=== PATIENT | male | born 1965 | race Caucasian/White ===

== ENCOUNTER 2017-02-17 07:11 | Day surgery (SDC) | payer BC ==
[2017-02-14 13:27] VITALS: BMI 25.8
[~2017-02-17 07:11] MED LIST: LACTATED RINGERS 1,000 ML IV SCH; LIDOCAINE 1% 20 ML VIAL (10MG/ML) FOR IV START INTRADERMA PRN
[2017-02-17] MEDS ORDERED: LACTATED RINGERS 1,000 ML IV ONE (07:15)
[2017-02-17 07:23] VITALS: RESP 16; TEMP 98.5
[2017-02-17] MEDS ORDERED: LIDOCAINE 1% INJ 10MG/ML (20 ML MDV) ONE (07:46)
[2017-02-17] MEDS ORDERED: PROPOFOL 10 MG/ML 20 ML VIAL IV ONE (07:46)
--- NOTE | 2017-02-17 07:51 | P.GSHP ---
History of Present Illness H&P Date: 02/17/17 Chief Complaint: Colon cancer screening Patient or today for colonoscopy. He is not had previously. He is here for screening reasons. Denies any change in bowel habits rectal bleeding or melena. No family history of colon cancer or polyps. Past Medical History Past Medical History: GERD/Reflux Additional Past Medical History / Comment(s): one seizure age 12, History of Any Multi-Drug Resistant Organisms: None Reported Past Surgical History: Orthopedic Surgery Additional Past Surgical History / Comment(s): ORIF rt hand, lump on back on neck excised Past Anesthesia/Blood Transfusion Reactions: No Reported Reaction Past Psychological History: No Psychological Hx Reported Smoking Status: Current every day smoker Past Alcohol Use History: None Reported Additional Past Alcohol Use History / Comment(s): smokes 1 PPD, since age 16 Past Drug Use History: None Reported - Past Family History Mother Family Medical History: No Reported History Medications and Allergies Home Medications Medication Instructions Recorded Confirmed Type No Known Home Medications [No 02/14/17 02/14/17 History Known Home Medications] Allergies Allergy/AdvReac Type Severity Reaction Status Date / Time No Known Allergies Allergy Verified 02/14/17 13:21 Surgical - Exam Vital Signs Temp Pulse Resp BP Pulse Ox 98.5 F 78 16 125/87 98 02/17/17 07:22 02/17/17 07:22 02/17/17 07:22 02/17/17 07:22 02/17/17 07:22 Physical exam: General: Well-developed, well-nourished HEENT: Normocephalic, sclerae nonicteric Abdomen: Nontender, nondistended Extremities: No edema Neuro: Alert and oriented Assessment and Plan (1) Colon cancer screening Narrative/Plan: Proceed with colonoscopy at this time. Status: Acute
--- NOTE | 2017-02-17 08:11 | P.PCN ---
Date of Procedure: 02/17/17 Procedure(s) Performed: PREOPERATIVE DIAGNOSIS: Colon cancer screening POSTOPERATIVE DIAGNOSIS: Mild inflammatory changes mid sigmoid with diverticulosis PROCEDURE: Colonoscopy with biopsy ANESTHESIA: MAC SURGEON: Herrera Lema M.D. SPECIMENS: Sigmoid colon ENDOSCOPIC PROCEDURE: The patient was placed on the endoscopy table in the left decubitus position. The Olympus colonoscope was inserted into the anus and passed under direct visualization to the base of the cecum. The appendiceal orifice was visualized. From that point the scope was slowly withdrawn inspecting all surfaces carefully. There were no neoplastic inflammatory or polypoid lesions throughout the cecum, ascending, transverse, or descending colon. In the sigmoid colon there was diverticulosis present. There was some edema of the mucosa. There was one area in particular where there was a fold of the colon that may have even represented an inverted diverticulum. This was erythematous and indurated. A single cold biopsy took place of that tissue to rule out adenomatous tissue. The remainder of the sigmoid and rectum appeared normal. Again moderate diverticular changes throughout the sigmoid was noted. Small hemorrhoids were present at the anal region. The patient was taken to the recovery room in stable condition per anesthesia guidelines. RECOMMENDATIONS: Await biopsy results. Increase fiber.
[2017-02-17 08:41] VITALS: BP 121/87; PULSE 68
== END 2017-02-17 08:50 | disposition home or self-care (01) ==
LOC: ORWHC2ENDO 07:11
PROVIDERS: ATTEND Surgery
DX: Z12.11 Encounter for screening for malignant neoplasm of colon (principal); K57.30 Diverticulosis of large intestine without perforation or abscess without bleeding; K64.9 Unspecified hemorrhoids; F17.200 Nicotine dependence, unspecified, uncomplicated
CPT/HCPCS: 88305; 45380; J2001; J2704

== ENCOUNTER 2018-11-16 13:09 | Inpatient (IN) | payer BC ==
[2018-11-16] MEDS ORDERED: NITROGLYCERIN OINT 1 INCH/GM PACKET TOPICAL STA (13:28)
[2018-11-16] MEDS ORDERED: ASPIRIN 81 MG PO STA (13:28)
--- NOTE | 2018-11-16 13:31 | ED ---
General Adult HPI - General Chief complaint: Chest Pain Stated complaint: Chest pain Time Seen by Provider: 11/16/18 13:15 Source: patient, RN notes reviewed Mode of arrival: ambulatory Limitations: no limitations - History of Present Illness Initial comments: This is a 53-year-old male who presents emergency Department complaining of chest pain. Patient states he's been having intermittent chest pain over the last 2 weeks but today's had 3 different times and each time is become worse. Patient states it radiates down his left arm and is also become quite diaphoretic. Patient denies any shortness of breath or difficulty breathing associated with pain. Patient states currently he has no chest pain but he does feel some achiness in his arm still. No positive family history for heart problems. Patient is a smoker. Patient denies any history of diabetes or hypertension. Patient denies any cardiac problems himself. Patient denies any abdominal pain patient denies nausea vomiting diarrhea. Patient denies any recent fever chills or cough. Patient denies any injury or trauma. - Related Data Home Medications Medication Instructions Recorded Confirmed No Known Home Medications 02/14/17 11/16/18 Allergies Allergy/AdvReac Type Severity Reaction Status Date / Time No Known Allergies Allergy Verified 11/16/18 14:08 Review of Systems ROS Statement: Those systems with pertinent positive or pertinent negative responses have been documented in the HPI. ROS Other: All systems not noted in ROS Statement are negative. Past Medical History Past Medical History: GERD/Reflux Additional Past Medical History / Comment(s): one seizure age 12, History of Any Multi-Drug Resistant Organisms: None Reported Past Surgical History: Orthopedic Surgery Additional Past Surgical History / Comment(s): ORIF rt hand, lump on back on neck excised Past Anesthesia/Blood Transfusion Reactions: No Reported Reaction Past Psychological History: No Psychological Hx Reported Smoking Status: Current every day smoker Past Alcohol Use History: None Reported Past Drug Use History: None Reported - Past Family History Mother Family Medical History: No Reported History General Exam - General Exam Comments Initial Comments: GENERAL: Patient is well-developed and well-nourished. Patient is nontoxic and well- hydrated and is in mild distress. ENT: Neck is soft and supple. No significant lymphadenopathy is noted. Oropharynx is clear. Moist mucous membranes. Neck has full range of motion without eliciting any pain. EYES: The sclera were anicteric and conjunctiva were pink and moist. Extraocular movements were intact and pupils were equal round and reactive to light. Eyelids were unremarkable. PULMONARY: Unlabored respirations. Good breath sounds bilaterally. No audible rales rhonchi or wheezing was noted. CARDIOVASCULAR: There is a regular rate and rhythm without any murmurs gallops or rubs. ABDOMEN: Soft and nontender with normal bowel sounds. No palpable organomegaly was noted. There is no palpable pulsatile mass. SKIN: Skin is clear with no lesions or rashes and otherwise unremarkable. NEUROLOGIC: Patient is alert and oriented x3. Cranial nerves II through XII are grossly intact. Motor and sensory are also intact. Normal speech, volume and content. Symmetrical smile. MUSCULOSKELETAL: Normal extremities with adequate strength and full range of motion. No lower extremity swelling or edema. No calf tenderness. LYMPHATICS: No significant lymphadenopathy is noted PSYCHIATRIC: Normal psychiatric evaluation. Limitations: no limitations Course Vital Signs 11/16/18 11/16/18 11/16/18 13:17 14:00 14:30 Temperature 96.6 F L Pulse Rate 85 65 73 Respiratory 20 14 15 Rate Blood Pressure 116/79 132/87 139/93 O2 Sat by Pulse 99 98 97 Oximetry Medical Decision Making - Medical Decision Making EKG shows normal sinus rhythm at 65 bpm PA interval 180 QRS is 90 QT interval 386 QTC is 411. Patient's EKG shows no ST segment elevation or depression or T- wave abnormalities are noted Chest x-ray shows no acute abnormality. Patient's troponin was mildly elevated and though he was chest pain-free I consider this a non-STEMI and I started the patient on heparin and give the patient some Lopressor. I spoke with Dr. Pichardo he agreed with this plan of action and he stated he will be down to the emergency department to see the patient. I spoke with Dr. Monet he agreed to admit the patient admitted the patient wrote admitting orders. - Lab Data Result diagrams: 11/16/18 13:38 11/16/18 13:38 Lab Results 11/16/18 11/16/18 11/16/18 Range/Units 13:38 13:38 13:38 WBC 12.2 H (3.8-10.6) k/uL RBC 4.82 (4.30-5.90) m/uL Hgb 14.4 (13.0-17.5) gm/dL Hct 44.3 (39.0-53.0) % MCV 91.9 (80.0-100.0) fL MCH 29.8 (25.0-35.0) pg MCHC 32.5 (31.0-37.0) g/dL RDW 12.7 (11.5-15.5) % Plt Count 398 (150-450) k/uL Neutrophils % 77 % Lymphocytes % 18 % Monocytes % 2 % Eosinophils % 2 % Basophils % 0 % Neutrophils # 9.3 H (1.3-7.7) k/uL Lymphocytes # 2.2 (1.0-4.8) k/uL Monocytes # 0.3 (0-1.0) k/uL Eosinophils # 0.2 (0-0.7) k/uL Basophils # 0.0 (0-0.2) k/uL PT (9.0-12.0) sec INR (<1.2) APTT (22.0-30.0) sec Sodium 141 (137-145) mmol/L Potassium 4.8 (3.5-5.1) mmol/L Chloride 107 (98-107) mmol/L Carbon Dioxide 23 (22-30) mmol/L Anion Gap 11 mmol/L BUN 13 (9-20) mg/dL Creatinine 0.82 (0.66-1.25) mg/dL Est GFR (CKD-EPI)AfAm >90 (>60 ml/min/1.73 sqM) Est GFR (CKD-EPI)NonAf >90 (>60 ml/min/1.73 sqM) Glucose 125 H (74-99) mg/dL Calcium 9.4 (8.4-10.2) mg/dL Magnesium 1.7 (1.6-2.3) mg/dL Total Bilirubin 0.4 (0.2-1.3) mg/dL AST 30 (17-59) U/L ALT 38 (21-72) U/L Alkaline Phosphatase 67 (38-126) U/L Total Creatine Kinase 47 L (55-170) U/L CK-MB (CK-2) 1.6 (0.0-2.4) ng/mL CK-MB (CK-2) Rel Index 3.4 Troponin I 0.160 H* (0.000-0.034) ng/mL Total Protein 6.9 (6.3-8.2) g/dL Albumin 4.1 (3.5-5.0) g/dL 11/16/18 Range/Units 13:38 WBC (3.8-10.6) k/uL RBC (4.30-5.90) m/uL Hgb (13.0-17.5) gm/dL Hct (39.0-53.0) % MCV (80.0-100.0) fL MCH (25.0-35.0) pg MCHC (31.0-37.0) g/dL RDW (11.5-15.5) % Plt Count (150-450) k/uL Neutrophils % % Lymphocytes % % Monocytes % % Eosinophils % % Basophils % % Neutrophils # (1.3-7.7) k/uL Lymphocytes # (1.0-4.8) k/uL Monocytes # (0-1.0) k/uL Eosinophils # (0-0.7) k/uL Basophils # (0-0.2) k/uL PT 9.6 (9.0-12.0) sec INR 0.9 (<1.2) APTT 22.0 (22.0-30.0) sec Sodium (137-145) mmol/L Potassium (3.5-5.1) mmol/L Chloride (98-107) mmol/L Carbon Dioxide (22-30) mmol/L Anion Gap mmol/L BUN (9-20) mg/dL Creatinine (0.66-1.25) mg/dL Est GFR (CKD-EPI)AfAm (>60 ml/min/1.73 sqM) Est GFR (CKD-EPI)NonAf (>60 ml/min/1.73 sqM) Glucose (74-99) mg/dL Calcium (8.4-10.2) mg/dL Magnesium (1.6-2.3) mg/dL Total Bilirubin (0.2-1.3) mg/dL AST (17-59) U/L ALT (21-72) U/L Alkaline Phosphatase (38-126) U/L Total Creatine Kinase (55-170) U/L CK-MB (CK-2) (0.0-2.4) ng/mL CK-MB (CK-2) Rel Index Troponin I (0.000-0.034) ng/mL Total Protein (6.3-8.2) g/dL Albumin (3.5-5.0) g/dL Critical Care Time Critical Care Time: Yes Total Critical Care Time: 35 Disposition Clinical Impression: Non-STEMI (non-ST elevated myocardial infarction) Disposition: ADMITTED IP TO THIS HOSP Referrals: Trisha Varner III, MD [Primary Care Provider] - 1-2 days Time of Disposition: 15:34
[2018-11-16 14:26] LABS: ALT 38 U/L (21-72); AST 30 U/L (17-59); Albumin 4.1 g/dL (3.5-5.0); Alkaline Phosphatase 67 U/L (38-126); Anion Gap 11 mmol/L; Blood Urea Nitrogen 13 mg/dL (9-20); Calcium 9.4 mg/dL (8.4-10.2); Carbon Dioxide 23 mmol/L (22-30); Chloride 107 mmol/L (98-107); Glucose 125 mg/dL (74-99); Magnesium 1.7 mg/dL (1.6-2.3); Potassium 4.8 mmol/L (3.5-5.1); Sodium 141 mmol/L (137-145); Total Bilirubin 0.4 mg/dL (0.2-1.3); Total Protein 6.9 g/dL (6.3-8.2)
[2018-11-16 14:28] LABS: Basophils % (A) 0 %; Eosinophils # (A) 0.2 k/uL (0-0.7); Eosinophils % (A) 2 %; HCT 44.3 % (39.0-53.0); HGB 14.4 gm/dL (13.0-17.5); Lymphocytes # (A) 2.2 k/uL (1.0-4.8); Lymphocytes % (A) 18 %; MCH 29.8 pg (25.0-35.0); MCHC 32.5 g/dL (31.0-37.0); MCV 91.9 fL (80.0-100.0); Mean Platelet Volume 6.6; Monocytes # (A) 0.3 k/uL (0-1.0); Monocytes % (A) 2 %; Neutrophils # (A) 9.3 k/uL (1.3-7.7); Neutrophils % (A) 77 %; Platelet Count 398 k/uL (150-450); RBC 4.82 m/uL (4.30-5.90); RDW 12.7 % (11.5-15.5); WBC 12.2 k/uL (3.8-10.6)
[2018-11-16 14:32] LABS: INR 0.9 (<1.2); Prothrombin Time 9.6 sec (9.0-12.0)
[2018-11-16 14:43] LABS: Creatine Kinase MB 1.6 ng/mL (0.0-2.4)
[2018-11-16 14:45] LABS: Troponin I 0.16 ng/mL (0.000-0.034)
--- NOTE | 2018-11-16 14:50 | XR ---
EXAMINATION TYPE: XR chest 2V DATE OF EXAM: 11/16/2018 COMPARISON: NONE HISTORY: Shortness of breath TECHNIQUE: Frontal and lateral views of the chest are obtained. FINDINGS: Scattered senescent parenchymal changes noted. No evidence for infiltrate. No evidence for atelectasis. Heart size is stable. Mediastinal structures are stable and grossly unremarkable. No evidence for hilar prominence. Degenerative changes dorsal spine. IMPRESSION: 1. No evidence for acute pulmonary disease.
[2018-11-16] MEDS ORDERED: HEPARIN SODIUM,PORCINE 5,000 UNIT/ML 1 ML VIAL IV ONE (15:08)
[2018-11-16] MEDS ORDERED: METOPROLOL TARTRATE 25 MG TAB PO STA (15:32)
[2018-11-16] MEDS ORDERED: NITROGLYCERIN SL TABS 0.4 MG TAB SUBLINGUAL PRN (15:35)
[2018-11-16] MEDS: HEPARIN SOD,PORK IN 0.45% NACL 25,000 UNIT in 0.45% NACL 1 250ML.BAG IV SCH (15:38)
[2018-11-16] MEDS: NICOTINE 21MG/24HR PATCH TRANSDERM SCH (17:21)
[2018-11-16] MEDS: NITROGLYCERIN OINT 1 INCH/GM PACKET TOPICAL SCH ×2 (20:29→23:11)
[2018-11-16 20:40] LABS: Creatine Kinase MB 1.9 ng/mL (0.0-2.4)
[2018-11-16 20:44] LABS: Troponin I 0.169 ng/mL (0.000-0.034)
[2018-11-16] MEDS ORDERED: ATORVASTATIN 40 MG TAB PO SCH (21:00)
[2018-11-16] MEDS: METOPROLOL TARTRATE 12.5 MG TAB PO SCH (21:26)
--- NOTE | 2018-11-16 21:56 | CONS ---
CONSULTATION DATE OF SERVICE: 11/16/2018. HISTORY: Mr. 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 He sees Dr. Varner and his nurse practitioner. However, this gentleman came into the emergency room with symptoms strongly suggestive of angina pectoris. Apparently, he was changing the light ball on his 's car and as he was doing it he felt pressure in the chest with radiation to left upper extremity and some diaphoresis. He felt concerned, went and sat down and then he felt better. He came and finished the job, went inside to the house and told his that was having chest discomfort. She gave him some aspirin, the pain recurred and he came into the hospital. For the last 2 weeks, he has been having on and off nondescript chest tightness and pressure and radiation to the left upper extremity with activity suggestive of angina pectoris. At the time of my evaluation, he is virtually asymptomatic, is feeling well. EKG revealed sinus mechanism with very subtle ST and specifically T-wave abnormality in leads V1 and V2. His initial troponin is 0.16. He is on a heparin drip and nitroglycerin paste and he is comfortable, resting without symptoms. PAST MEDICAL HISTORY: Gastroesophageal reflux disease. No evidence of any hypertension, diabetes, myocardial infarction or CVA. MEDICATIONS: None. ALLERGIES: None. PAST SURGICAL HISTORY: The patient underwent some right hand thumb surgery after an accident with a chainsaw. PHYSICAL EXAMINATION: Blood pressure is 124/84, pulse rate is about 80 per minute and regular. HEENT: Unremarkable. Fundus was not examined by me. NECK: Supple. There is no JVD. I do not hear a carotid bruit. There is no thyromegaly. HEART: Exam reveals S1, S2 heard normally without a rub, murmur, or gallop. LUNGS: Clear. ABDOMEN: Soft, nontender. EXTREMITIES: Lower extremities reveal that there is no edema. His right lower extremity pulses are normal, but left lower extremity pulses are diminished. He probably has disease in the iliac as well as in the femoral system and the pulses are very diminished distally. CENTRAL NERVOUS SYSTEM: Grossly, no focal deficits. EKG revealed a sinus mechanism with precordial ST changes in leads V1 and V2. No other acute changes. LABORATORY DATA: Reveals a troponin of 0.16. This patient is a smoker and has a family history of cancer, but not CAD. He has no hypertension or diabetes. He smokes more than 1 pack a day, almost 2 packs daily. IMPRESSION: 1. Acute ischemic syndrome, probable non ST elevation myocardial infarction. 2. Peripheral arterial disease with diminished pulses in the left lower extremity with iliofemoral and probably popliteal disease as well. 3. History of smoking. RECOMMENDATIONS: I am recommending that we will continue with IV heparin drip. I will add Lopressor 12.5 mg b.i.d. with a dose now, atorvastatin 40 mg daily. Nitroglycerin paste will be continued. He is also had taking aspirin. I have advised cardiac catheterization and possible intervention. The rationale, risks, benefits, options were explained very carefully. Patient understands all details and wishes to proceed with the procedure tomorrow, which will be scheduled at 9 a.m. If the patient has any symptoms, we will do intervention prior to that. I discussed my thoughts in detail with the patient and also with his son. Thank you very much for the consult. TERESSA / CARON: [id number] /
[2018-11-17 02:08] LABS: Creatine Kinase MB 2.7 ng/mL (0.0-2.4)
[2018-11-17 02:12] LABS: Troponin I 0.403 ng/mL (0.000-0.034)
[2018-11-17] MEDS ORDERED: ALPRAZolam 0.5 MG TAB PO PRN (04:26)
[2018-11-17] MEDS ORDERED: SODIUM CHLORIDE 0.9% 1,000 ML in EMPTY BAG 1 BAG IV ONE (04:26)
[2018-11-17] MEDS ORDERED: ALPRAZolam 0.25 MG TAB PO PRN (04:26)
[2018-11-17] MEDS ORDERED: NITROGLYCERIN SL TABS 0.4 MG TAB SUBLINGUAL PRN (04:26)
[2018-11-17] MEDS ORDERED: ATORVASTATIN 80 MG TAB PO STA (04:26)
[2018-11-17 05:28] LABS: Cholesterol 145 mg/dL (<200); HDL Cholesterol 43 mg/dL (40-60); LDL Cholesterol,Calculated 84 mg/dL (0-99); Triglycerides 89 mg/dL (<150)
[2018-11-17] MEDS: NITROGLYCERIN OINT 1 INCH/GM PACKET TOPICAL SCH ×4 (06:14→23:51)
[2018-11-17] MEDS: METOPROLOL TARTRATE 12.5 MG TAB PO SCH (06:18)
[2018-11-17] MEDS ORDERED: ASPIRIN 325 MG TAB PO SCH (09:00)
[2018-11-17] MEDS ORDERED: VERAPAMIL 2.5 MG/ML 2 ML AMP ONE (09:32)
[2018-11-17] MEDS ORDERED: LIDOCAINE 1% INJ 10MG/ML (20 ML MDV) ONE (09:32)
[2018-11-17] MEDS ORDERED: IV FLUID CONTINUATION 1,000 ML IV ONE (09:37)
[2018-11-17] MEDS ORDERED: MIDAZOLAM 2 MG/2 ML VIAL IV ONE (09:47)
[2018-11-17] MEDS ORDERED: LIDOCAINE 1% INJ 10MG/ML (20 ML MDV) SQ ONE (09:52)
[2018-11-17] MEDS ORDERED: HEPARIN SODIUM 1,000 UN/ML (10ML VL) IV ONE ×2 (09:54)
[2018-11-17] MEDS: VERAPAMIL SYRINGE (5 MG/10 ML) INTRAARTER ONE ×2 (09:54→10:26)
[2018-11-17] MEDS ORDERED: HEPARIN SOD,PORK IN 0.45% NACL 25,000 UNIT in 0.45% NACL 1 250ML.BAG IV ONE (10:09)
[2018-11-17] MEDS ORDERED: IOPAMIDOL-370 100ML BTL INJ ONE (10:18)
[2018-11-17] MEDS ORDERED: NITROGLYCERIN SL TABS 0.4 MG TAB SUBLINGUAL ONE ×2 (10:19→10:20)
[2018-11-17] MEDS ORDERED: RX INFO: IV CONTRAST WAS GIVEN 1 EACH MISC MISCELLANE PRN (10:49)
[2018-11-17] MEDS ORDERED: MD COMMUNICATION TO PHARMACY 1 EACH MISC PO ONE ×4 (11:15)
--- NOTE | 2018-11-17 11:53 | P.CNPUL ---
History of Present Illness Consult date: 11/17/18 Requesting physician: Gonzales Monet Reason for consult: other (Critical care management) Chief complaint: Chest pain History of present illness: This is a very pleasant 53-year-old gentleman who follows with Dr. Varner is his primary care physician. He has a history of gastroesophageal reflux disease , chronic and ongoing tobacco dependence. No home medications. No strong family history of coronary artery disease. He presented here to the emergency room yesterday with complaints of chest pain. It had been intermittent over the past 2 weeks but yesterday he had at 3 different times and came in for that reason. He has had some achiness in his left arm and was diaphoretic. EKG revealed sinus rhythm with very subtle ST and T wave abnormalities. Troponin 0.169, 0.403, 0.555. He was initiated on a heparin drip and nitroglycerin paste. He had undergone cardiac catheterization today which which revealed significant coronary artery disease including 75% LAD lesion with intrinsic dissection. Cardiothoracic consultation is pending. He is seen today in consultation in the intensive care unit. He is awake and alert in no acute distress. He is maintaining good O2 saturations in the upper 90s on room air. He's been afebrile. Hemodynamically stable. No chest pain currently. No dizziness or lightheadedness. No shortness of breath cough or congestion. Review of Systems Constitutional: Reports sweats, Reports weakness Eyes: denies blurred vision, denies decreased vision Ears: deny: decreased hearing Ears, nose, mouth and throat: Denies headache, Denies sore throat Cardiovascular: Reports chest pain Respiratory: Denies cough Gastrointestinal: Denies abdominal pain, Denies diarrhea, Denies nausea, Denies vomiting Genitourinary: Reports as per HPI Musculoskeletal: Denies myalgias Integumentary: Denies pruritus, Denies rash Neurological: Denies numbness, Denies weakness Psychiatric: Denies anxiety, Denies depression Endocrine: Denies fatigue, Denies weight change Hematologic/Lymphatic: Reports as per HPI Allergic/Immunologic: Reports as per HPI Past Medical History Past Medical History: GERD/Reflux Additional Past Medical History / Comment(s): one seizure age 12, diverticulosis ,"herniated disc in neck" chronic neck pain History of Any Multi-Drug Resistant Organisms: None Reported Past Surgical History: Orthopedic Surgery Additional Past Surgical History / Comment(s): ORIF rt hand, lump on back of neck excised(cyst), rt thumb partial amp Past Anesthesia/Blood Transfusion Reactions: No Reported Reaction Additional Past Anesthesia/Blood Transfusion Reaction / Comment(s): "never received any blood transfusions" Smoking Status: Current every day smoker - Past Family History Mother Family Medical History: Cancer, Myocardial Infarction ([place]) Additional Family Medical History / Comment(s): cardiac stents Father History Unknown: Yes Brother(s) Family Medical History: Cancer Additional Family Medical History / Comment(s): was smoker. from lung cancer Sister(s) Family Medical History: Cancer Additional Family Medical History / Comment(s): smoker. recently dx with lung cancer. Medications and Allergies Home Medications Medication Instructions Recorded Confirmed Type No Known Home Medications 02/14/17 11/16/18 History Allergies Allergy/AdvReac Type Severity Reaction Status Date / Time No Known Allergies Allergy Verified 11/16/18 14:08 Physical Exam Vitals: Vital Signs Temp Pulse Pulse Resp BP BP Pulse Ox 11/17/18 08:00 97.8 F 79 16 148/88 97 11/17/18 04:00 98.2 F 64 18 110/66 97 11/16/18 23:53 98.1 F 77 18 123/77 96 11/16/18 23:50 90 16 11/16/18 20:00 98.4 F 90 16 140/80 95 11/16/18 17:30 98.7 F 67 20 127/92 98 11/16/18 17:00 65 16 130/91 98 11/16/18 16:30 71 19 120/84 98 11/16/18 16:00 72 16 120/88 99 11/16/18 15:30 75 18 126/84 95 11/16/18 15:00 72 13 124/97 96 11/16/18 14:30 73 15 139/93 97 11/16/18 14:00 65 14 132/87 98 11/16/18 13:17 96.6 F L 85 20 116/79 99 Intake and Output 11/16/18 11/17/18 11/17/18 22:59 06:59 14:59 Intake Total 63.309 240 305 Balance 63.309 240 305 Intake: IV 155 Intake, IV Titration 63.309 150 Amount Heparin Sod,Pork in 0.45% 63.309 NaCl 25,000 unit In 0.45 % NaCl 1 250ml.bag @ 12 UNITS/KG/HR 8.98 mls/hr IV .Q24H [facility] Rx#: [id number] Sodium Chloride 0.9% 1, 150 000 ml In Empty Bag 1 bag @ 1 ML/KG/HR 74.84 mls/ hr IV .[id number] [facility] Rx#: [id number] Oral 240 0 Other: # Voids 2 Weight 79.2 kg - Constitutional General appearance: average body habitus, no acute distress - EENT Eyes: EOMI, PERRLA ENT: hearing grossly normal Ears: bilateral: normal - Neck Neck: normal ROM Carotids: bilateral: upstroke normal Thyroid: bilateral: normal size - Respiratory Respiratory: bilateral: CTA - Cardiovascular Rhythm: regular Heart sounds: normal: S1, S2 - Gastrointestinal General gastrointestinal: normal bowel sounds - Integumentary Integumentary: normal turgor - Neurologic Neurologic: CNII-XII intact - Musculoskeletal Musculoskeletal: gait normal - Psychiatric Psychiatric: A&O x's 3, appropriate affect, intact judgment & insight Results - Laboratory Findings CBC and BMP: 11/16/18 13:38 11/16/18 13:38 PT/INR, D-dimer PT 9.6 sec (9.0-12.0) 11/16/18 13:38 INR 0.9 (<1.2) 11/16/18 13:38 Abnormal lab findings: Abnormal Labs 11/16/18 11/16/18 11/16/18 13:38 13:38 13:38 WBC 12.2 H Neutrophils # 9.3 H APTT Glucose 125 H Total Creatine Kinase 47 L CK-MB (CK-2) Troponin I 0.160 H* 11/16/18 11/16/18 11/17/18 19:33 21:49 01:16 WBC Neutrophils # APTT 40.7 H Glucose Total Creatine Kinase 45 L 51 L CK-MB (CK-2) 2.7 H Troponin I 0.169 H* 0.403 H* 11/17/18 11/17/18 04:41 07:16 WBC Neutrophils # APTT 37.2 H Glucose Total Creatine Kinase CK-MB (CK-2) Troponin I 0.555 H* - Diagnostic Findings Chest x-ray: image reviewed Assessment and Plan Assessment: Impression: #1 Chest pain in a patient found to have significant coronary artery disease including 75% LAD lesion with intrinsic dissection. #2 Chronic tobacco dependence of 40 years. #3 Gastroesophageal reflux disease. Plan: The patient was seen and evaluated by Dr. Lopez. Chest x-ray and labs reviewed. Cardiac catheterization results reviewed. The plan is for coronary revascularization tomorrow morning. The patient will be educated regarding the use the incentive spirometer and cough and deep breathing exercises. He is educated regarding the importance of complete smoking cessation. A NicoDerm patch is in place. He remains on a heparin drip. Nitro-Bid ointment in place. Will continue to monitor him closely here in the intensive care unit. We will continue to follow and make further recommendations based on his clinical status. I, the cosigning physician, performed a history & physical examination of the patient. Lungs sounds are clear. Maintaining good O2 saturations in the 90s on room air. I discussed the assessment and plan of care with my nurse practitioner, Talia Ferrer. I attest to the above consultation as dictated by her. Time with Patient: Greater than 30
[2018-11-17 12:39] LABS: ALT 40 U/L (21-72); AST 27 U/L (17-59); Albumin 3.7 g/dL (3.5-5.0); Alkaline Phosphatase 73 U/L (38-126); Anion Gap 5 mmol/L; Blood Urea Nitrogen 12 mg/dL (9-20); Calcium 9.6 mg/dL (8.4-10.2); Carbon Dioxide 26 mmol/L (22-30); Chloride 108 mmol/L (98-107); Glucose 94 mg/dL (74-99); Magnesium 1.9 mg/dL (1.6-2.3); Potassium 4.9 mmol/L (3.5-5.1); Sodium 139 mmol/L (137-145); Total Bilirubin 0.5 mg/dL (0.2-1.3); Total Protein 6.3 g/dL (6.3-8.2)
[2018-11-17 12:40] LABS: Basophils # (A) 0.1 k/uL (0-0.2); Basophils % (A) 0 %; Eosinophils # (A) 0.3 k/uL (0-0.7); Eosinophils % (A) 3 %; HCT 43.4 % (39.0-53.0); HGB 14.5 gm/dL (13.0-17.5); Lymphocytes # (A) 3.6 k/uL (1.0-4.8); Lymphocytes % (A) 32 %; MCH 30.5 pg (25.0-35.0); MCHC 33.3 g/dL (31.0-37.0); MCV 91.4 fL (80.0-100.0); Mean Platelet Volume 6.4; Monocytes # (A) 0.4 k/uL (0-1.0); Monocytes % (A) 3 %; Neutrophils # (A) 6.9 k/uL (1.3-7.7); Neutrophils % (A) 61 %; Platelet Count 363 k/uL (150-450); RBC 4.75 m/uL (4.30-5.90); RDW 12.8 % (11.5-15.5); WBC 11.3 k/uL (3.8-10.6)
[2018-11-17 12:44] LABS: INR 0.9 (<1.2); Partial Thromboplastin Time 33.8 sec (22.0-30.0); Prothrombin Time 9.7 sec (9.0-12.0)
--- NOTE | 2018-11-17 12:46 | P.HPIM ---
History of Present Illness This is a pleasant 53-year-old gentleman with no cigarette in past medical history came in with complaints of chest pain with diaphoresis does smoke. Patient had mildly elevated troponins and patient had atypical chest pain which is pressure-like sensation because of which patient was taken to Lab found to have significant stenosis of left main with some intrinsic dissection. Cardiology is recommending coronary artery bypass grafting carotid thoracic surgery was consulted. Patient has some dry cough from smoking denied any fever chills nausea vomiting denied any present shortness of breath. Review of Systems REVIEW OF SYSTEMS: CONSTITUTIONAL: No fever, no malaise, no fatigue. HEENT: No recent visual problems or hearing problems. Denied any sore throat. CARDIOVASCULAR: No orthopnea, PND, no palpitations, no syncope. PULMONARY: No shortness of breath, no cough, no hemoptysis. GASTROINTESTINAL: No diarrhea, no nausea, no vomiting, no abdominal pain. NEUROLOGICAL: No headaches, no weakness, no numbness. HEMATOLOGICAL: Denies any bleeding or petechiae. GENITOURINARY: Denies any burning micturition, frequency, or urgency. MUSCULOSKELETAL/RHEUMATOLOGICAL: Denies any joint pain, swelling, or any muscle pain. ENDOCRINE: Denies any polyuria or polydipsia. The rest of the 14-point review of systems is negative. Past Medical History Past Medical History: GERD/Reflux Additional Past Medical History / Comment(s): one seizure age 12, diverticulosis ,"herniated disc in neck" chronic neck pain History of Any Multi-Drug Resistant Organisms: None Reported Past Surgical History: Orthopedic Surgery Additional Past Surgical History / Comment(s): ORIF rt hand, lump on back of neck excised(cyst), rt thumb partial amp Past Anesthesia/Blood Transfusion Reactions: No Reported Reaction Additional Past Anesthesia/Blood Transfusion Reaction / Comment(s): "never received any blood transfusions" Smoking Status: Current every day smoker - Past Family History Mother Family Medical History: Cancer, Myocardial Infarction ([place]) Additional Family Medical History / Comment(s): cardiac stents Father History Unknown: Yes Brother(s) Family Medical History: Cancer Additional Family Medical History / Comment(s): was smoker. from lung cancer Sister(s) Family Medical History: Cancer Additional Family Medical History / Comment(s): smoker. recently dx with lung cancer. Medications and Allergies Home Medications Medication Instructions Recorded Confirmed Type No Known Home Medications 02/14/17 11/16/18 History Allergies Allergy/AdvReac Type Severity Reaction Status Date / Time No Known Allergies Allergy Verified 11/16/18 14:08 Physical Exam Vitals: Vital Signs Temp Pulse Pulse Resp BP BP Pulse Ox 11/17/18 08:00 97.8 F 79 16 148/88 97 11/17/18 04:00 98.2 F 64 18 110/66 97 11/16/18 23:53 98.1 F 77 18 123/77 96 11/16/18 23:50 90 16 11/16/18 20:00 98.4 F 90 16 140/80 95 11/16/18 17:30 98.7 F 67 20 127/92 98 11/16/18 17:00 65 16 130/91 98 11/16/18 16:30 71 19 120/84 98 11/16/18 16:00 72 16 120/88 99 11/16/18 15:30 75 18 126/84 95 11/16/18 15:00 72 13 124/97 96 11/16/18 14:30 73 15 139/93 97 11/16/18 14:00 65 14 132/87 98 11/16/18 13:17 96.6 F L 85 20 116/79 99 Intake and Output 11/16/18 11/17/18 11/17/18 22:59 06:59 14:59 Intake Total 63.309 240 305 Balance 63.309 240 305 Intake: IV 155 Intake, IV Titration 63.309 150 Amount Heparin Sod,Pork in 0.45% 63.309 NaCl 25,000 unit In 0.45 % NaCl 1 250ml.bag @ 12 UNITS/KG/HR 8.98 mls/hr IV .Q24H [facility] Rx#: [id number] Sodium Chloride 0.9% 1, 150 000 ml In Empty Bag 1 bag @ 1 ML/KG/HR 74.84 mls/ hr IV .[id number] ONE Rx#: [id number] Oral 240 0 Other: # Voids 2 Weight 79.2 kg PHYSICAL EXAMINATION: GENERAL: The patient is alert and oriented x3, not in any acute distress. Well developed, well nourished. HEENT: Pupils are round and equally reacting to light. EOMI. No scleral icterus. No conjunctival pallor. Normocephalic, atraumatic. No pharyngeal erythema. No thyromegaly. CARDIOVASCULAR: S1 and S2 present. No murmurs, rubs, or gallops. PULMONARY: Chest is clear to auscultation, no wheezing or crackles. ABDOMEN: Soft, nontender, nondistended, normoactive bowel sounds. No palpable organomegaly. MUSCULOSKELETAL: No joint swelling or deformity. EXTREMITIES: No cyanosis, clubbing, or pedal edema. NEUROLOGICAL: Gross neurological examination did not reveal any focal deficits. SKIN: No rashes. Results CBC & Chem 7: 11/16/18 13:38 11/17/18 11:55 Labs: Abnormal Lab Results - Last 24 Hours (Table) 11/16/18 11/16/18 11/16/18 Range/Units 13:38 13:38 13:38 WBC 12.2 H (3.8-10.6) k/uL Neutrophils # 9.3 H (1.3-7.7) k/uL APTT (22.0-30.0) sec Chloride (98-107) mmol/L Glucose 125 H (74-99) mg/dL Total Creatine Kinase 47 L (55-170) U/L CK-MB (CK-2) (0.0-2.4) ng/mL Troponin I 0.160 H* (0.000-0.034) ng/mL 11/16/18 11/16/18 11/17/18 Range/Units 19:33 21:49 01:16 WBC (3.8-10.6) k/uL Neutrophils # (1.3-7.7) k/uL APTT 40.7 H (22.0-30.0) sec Chloride (98-107) mmol/L Glucose (74-99) mg/dL Total Creatine Kinase 45 L 51 L (55-170) U/L CK-MB (CK-2) 2.7 H (0.0-2.4) ng/mL Troponin I 0.169 H* 0.403 H* (0.000-0.034) ng/mL 11/17/18 11/17/18 11/17/18 Range/Units 04:41 07:16 11:55 WBC (3.8-10.6) k/uL Neutrophils # (1.3-7.7) k/uL APTT 37.2 H (22.0-30.0) sec Chloride 108 H (98-107) mmol/L Glucose (74-99) mg/dL Total Creatine Kinase (55-170) U/L CK-MB (CK-2) (0.0-2.4) ng/mL Troponin I 0.555 H* (0.000-0.034) ng/mL Assessment and Plan Plan: -Acute non-ST elevation myocardial infarction: Status post cardiac catheterization with left main disease with intrinsic dissection patient will will be evaluated by cardiothoracic surgery possibility of CABG tomorrow patient is being presently continued on heparin drip is on metoprolol along with antiplatelet therapy. Patient is also on IV calcium channel gonzalo -Gastroesophageal reflux disease -Nicotine abuse: Counseling was provided
--- NOTE | 2018-11-17 12:59 | US ---
EXAMINATION TYPE: US carotid duplex BILAT DATE OF EXAM: 11/17/2018 COMPARISON: NONE CLINICAL HISTORY: 53-year-old male PreOp Cardiac Surgery. No HTN TECHNIQUE: Carotid duplex ultrasound examination. Indirect Doppler criteria was utilized. FINDINGS: EXAM MEASUREMENTS: RIGHT: Peak Systolic Velocity (PSV) cm/sec ----- Right CCA: 73.2 ----- Right ICA: 58.4 ----- Right ECA: 53.1 ICA/CCA ratio: 0.8 RIGHT: End Diastole cm/sec ----- Right CCA: 31.3 ----- Right ICA: 26.1 ----- Right ECA: 10.4 LEFT: Peak Systolic Velocity (PSV) cm/sec ----- Left CCA: 59.2 ----- Left ICA: 62.5 ----- Left ECA: 89.2 ICA/CCA ratio: 1.1 LEFT: End Diastole cm/sec ----- Left CCA: 16.5 ----- Left ICA: 32.9 ----- Left ECA: 21.9 VERTEBRALS (direction of flow): Right Vertebral: Antegrade Left Vertebral: Antegrade Rhythm: Normal [employer] Vice President notes: No plaque, elevated velocities, significant stenosis, or wall thickening seen. IMPRESSION: No hemodynamically significant stenosis appreciated in either internal carotid artery. Criteria for Assigning % of Stenosis / Diameter reduction (Estimation based on the indirect measurements of the internal carotid artery velocities (ICA PSV). 1. Normal (no stenosis)=ICA PSV < 125 cm/s: ratio < 2.0: ICA EDV<40 cm/s. 2. Less than 50% stenosis=ICA PSV < 125 cm/s: ratio < 2.0: ICA EDV<40 cm/s. 3. 50 to 69% stenosis=ICA PSV of 125 to 230 cm/s: ration 2.0 ? 4.0: ICA EDV 40-100 cm/s. 4. Greater than 70% stenosis to near occlusion= ICA PSV > 230 cm/s: ratio > 4.0: ICA EDV > 100 cm/s. 5. Near occlusion= ICA PSV velocities may be low or undetectable: variable ratio and ICA EDV. 6. Total occlusion=unable to detect flow.
--- NOTE | 2018-11-17 14:17 | CC ---
CARDIAC CATHETERIZATION REPORT DATE OF SERVICE: 11/17/2018 PROCEDURE: Left heart catheterization, coronary angiography and left ventriculography. PERFORMED BY: Dr. Alexi Pichardo. SEDATION: Moderate conscious sedation time was 37 minutes. Patient was administered Versed and oxygen saturation, hemodynamics and EKG were monitored closely. CLINICAL INFORMATION: Mr. Anibal Carrillo is a 53-year-old gentleman who is a smoker of at least 2 packs or more. Has no other known risk factors and cholesterol status is unknown. He came into the hospital yesterday and I saw him because of his symptoms strongly suggestive of angina with precordial ST and T-wave abnormality in leads V1 and V2 with mild troponin elevation. Clinical picture was that of an acute non ST elevation IA involving the LAD distribution. He was advised cardiac cath after heparinizing him and placing him on beta blockers and nitrates. The risks, benefits, options and rationale were explained to the patient and family. Patient also has peripheral artery disease with poor pulses in the left lower extremity. PROCEDURE NOTE: Under local anesthesia and strict aseptic precautions, a 6-German introducer was placed in the right radial artery. I used a JL 3.5 and JR4 4.0 catheters of 5-German caliber to selectively perform coronary angiography and a pigtail catheter was used to check LV pressures and LV-gram in 30 degree PA projection was performed. The sheath was taken out and TR band applied as per protocol and patient was sent to the ICU on a heparin drip. Findings and results were discussed with the patient and family and I recommended aortocoronary bypass surgery as a first option because of extremely proximal LAD lesion with proximal LAD lesion with intrinsic dissection as well. CARDIAC CATHETERIZATION FINDINGS: The left ventricular end-diastolic pressure was about 8-10 mmHg without any gradient across aortic valve. CORONARY ANGIOGRAPHIC FINDINGS: LEFT MAIN: Left main coronary artery is a short patent vessel free of significant disease that bifurcates into LAD and circumflex. Left main itself is free of significant disease. LEFT ANTERIOR DESCENDING CORONARY ARTERY: Very proximally as it comes off from the left main, there is a very tight eccentric lesion of about 70-75 percent. In just after the lesion, the vessel is larger and there is an intrinsic dissection with haziness suggestive of possible intrinsic dissection best seen in the PA caudal projections. After this, there is a good-sized diagonal branch that divides into 2 small branches and then the LAD runs all the way to the apex supplying a sizable amount of myocardium. LAD therefore is a fairly decent caliber vessel, but the distal LAD is smaller in caliber and distribution. The 2 diagonal branches are of fair caliber and have mild irregularities. The distal 1/3 of the LAD has diffuse irregularities noted. The ostial LAD has a very tight 70% lesion. LEFT POSTERIOR CIRCUMFLEX CORONARY ARTERY: Technically a nondominant vessel that runs laterally, gives off 2 smaller secondary branches and an AV groove branch. No significant disease in the circumflex system which is a nondominant system. RIGHT CORONARY ARTERY: Technically a dominant vessel, has no significant disease in the proximal portion. It gives off an acute marginal branch that has diffuse disease in it and then distally it gives off a larger PLV, smaller PDA both of which have minor irregularities and the distal branches of PLV have a diffuse irregularities noted. No significant lesions are detected in the main RCA or its branches other than the disease located diffusely in the distal branches of PLV. LEFT VENTRICULOGRAM: This was performed in 30 degree PA projection and revealed left ventricle was of normal size with good systolic function. Ejection fraction is about 55% without mitral regurgitation. FINAL IMPRESSION: This patient has an ostial LAD lesion of 70% with a dissection right after the lesion and this is intrinsic dissection noted. There is haziness. LAD is a fair caliber vessel and gives off 2 diagonal branches as well which do not have significant independent disease in them. The left circumflex is nondominant, has no critical disease. RCA is dominant, has minor irregularities in the branches but no critical disease in the main vessel. RECOMMENDATIONS: I discussed options of both percutaneous coronary intervention and bypass surgery. Given the proximity of the lesion and intrinsic dissection in the LAD, I believe surgery may be a better option. I will await Dr. Bautista's opinion before performing any intervention. In the interim, we will place him on IV heparin drip and send him to the ICU. Dr. Bautista will be in to look at the images. Findings and recommendations were discussed with the patient and family. The patient was sent to the ICU in a stable condition. MMODL / IJN: [id number] /
[2018-11-17] MEDS: NICOTINE 21MG/24HR PATCH TRANSDERM SCH (14:47)
--- NOTE | 2018-11-17 15:48 | P.GSCN ---
History of Present Illness Consult date: 11/17/18 Reason for Consult: Non-ST elevated myocardial infarction with significant coronary artery disease demonstrating a 75% stenosis to his left anterior descending order artery with intrinsic dissection. Requesting physician: Caro Pichardo History of present illness: This is a 53-year-old gentleman who is followed by Dr. Hung Varner on an outpatient basis. Patient has a past medical history significant for gastroesophageal reflux disease, family history of early onset coronary artery disease with his mother having cardiac stents placed in her 50s, peripheral vascular disease with his ANA LUISA to his left leg 0.68, chronic neck pain from herniated disks and chronic tobacco dependence. About 2 weeks ago the patient reports that he was having an episode of chest pressure, associated with nausea sweats and lightheadedness. The patient denies any complaints of shortness of breath, vomiting, syncope or near syncope. He reports that the chest pressure 2 weeks ago was self-limiting and only lasted for about 10-15 minutes. The patient also reports that he associated chest pressure with heartburn. Subsequently yesterday while changing a blister ball on his 's car he developed some substernal chest pain again associated with nausea sweats and lightheadedness. The initial pain lasted for about 1 minute and subsequently came back and lasted about 20 minutes. His gave him an aspirin and subsequently drove him to the emergency department for further workup and evaluation. In the emergency department a 12-lead EKG was completed which showed normal sinus rhythm with a very subtle ST and T-wave abnormalities. Lab work was completed which demonstrated elevated troponins 0.169, 0.403, and 0.555. He was subsequently seen and evaluated by Dr. MER Pichardo from cardiology and was taken for an urgent cardiac catheterization. His cardiac catheterization results demonstrated a 75% stenosis to his proximal left anterior descending coronary artery with an intrinsic dissection. Also during heart catheterization a left ventriculogram was completed which demonstrated him to have an ejection fraction of 55%. Due to the patient's presenting symptoms, elevated troponins and cardiac catheterization results a consult was placed to Dr. Celestino Bautista from cardiothoracic surgery for recommendations on myocardial revascularization surgery. Review of Systems A 14 point review of systems was completed and was negative except as mentioned in HPI. Past Medical History Past Medical History: GERD/Reflux Additional Past Medical History / Comment(s): one seizure age 12, diverticulosis ,"herniated disc in neck" chronic neck pain History of Any Multi-Drug Resistant Organisms: None Reported Past Surgical History: Orthopedic Surgery Additional Past Surgical History / Comment(s): ORIF rt hand, lump on back of neck excised(cyst), rt thumb partial amp Past Anesthesia/Blood Transfusion Reactions: No Reported Reaction Additional Past Anesthesia/Blood Transfusion Reaction / Comm: "never received any blood transfusions" Past Psychological History: No Psychological Hx Reported Smoking Status: Current every day smoker (Smokes about 1to 1-1/2 packs per day) Past Alcohol Use History: None Reported Past Drug Use History: None Reported - Past Family History Mother Family Medical History: Cancer, Coronary Artery Disease (CAD), Myocardial Infarction ([place]) Additional Family Medical History / Comment(s): cardiac stents placed while she was in her 50s. Father History Unknown: Yes Brother(s) Family Medical History: Cancer Additional Family Medical History / Comment(s): was smoker. from lung cancer Sister(s) Family Medical History: Cancer Additional Family Medical History / Comment(s): smoker. recently dx with lung cancer. Medications and Allergies Home Medications Medication Instructions Recorded Confirmed Type No Known Home Medications 02/14/17 11/16/18 History Allergies Allergy/AdvReac Type Severity Reaction Status Date / Time No Known Allergies Allergy Verified 11/16/18 14:08 Surgical - Exam Vital Signs Temp Pulse Resp BP Pulse Ox 96.6 F L 85 20 116/79 99 11/16/18 13:17 11/16/18 13:17 11/16/18 13:17 11/16/18 13:17 11/16/18 13:17 - General well developed, well nourished, no distress, no pain, obese - Eyes PERRL, normal ocular movement - ENT normal pinna, normal nares, normal mucosa, no hearing loss, no congestion - Neck Neck is supple, no lymphadenopathy. no masses, no bruits, trachea midline, no venous distension - Respiratory Lung sounds are essentially clear throughout. Respirations: Symmetrical and Nonlabored. Oxygen saturation 97% on room air. - Cardiovascular Regular rhythm and rate. S1 and S2 present, negative for S3, gallop or murmur. No edema present. - Abdomen Abdomen is soft, nontender and nondistended. Active bowel sounds all 4 abdominal quadrants. No organomegaly. No guarding or rigidity. - Genitourinary Deferred - Rectum Deferred - Integumentary no rash, no growths, no abnormal pigmentation - Neurologic normal coordination, normal sensation - Musculoskeletal normal gait, normal posture - Psychiatric oriented to time, oriented to person, oriented to place, speech is normal, memory intact Results - Labs 11/17/18 11:55 11/17/18 11:55 Abnormal Lab Results - Last 24 Hours (Table) 11/16/18 11/16/18 11/17/18 Range/Units 19:33 21:49 01:16 WBC (3.8-10.6) k/uL APTT 40.7 H (22.0-30.0) sec Chloride (98-107) mmol/L Total Creatine Kinase 45 L 51 L (55-170) U/L CK-MB (CK-2) 2.7 H (0.0-2.4) ng/mL Troponin I 0.169 H* 0.403 H* (0.000-0.034) ng/mL Crossmatch 11/17/18 11/17/18 11/17/18 Range/Units 04:41 07:16 11:55 WBC (3.8-10.6) k/uL APTT 37.2 H 33.8 H (22.0-30.0) sec Chloride (98-107) mmol/L Total Creatine Kinase (55-170) U/L CK-MB (CK-2) (0.0-2.4) ng/mL Troponin I 0.555 H* (0.000-0.034) ng/mL Crossmatch 11/17/18 11/17/18 11/17/18 Range/Units 11:55 11:55 11:55 WBC 11.3 H (3.8-10.6) k/uL APTT (22.0-30.0) sec Chloride 108 H (98-107) mmol/L Total Creatine Kinase (55-170) U/L CK-MB (CK-2) (0.0-2.4) ng/mL Troponin I (0.000-0.034) ng/mL Crossmatch See Detail Diabetes panel 11/17/18 11/17/18 Range/Units 04:41 11:55 Sodium 139 (137-145) mmol/L Potassium 4.9 (3.5-5.1) mmol/L Chloride 108 H (98-107) mmol/L Carbon Dioxide 26 (22-30) mmol/L BUN 12 (9-20) mg/dL Creatinine 0.73 (0.66-1.25) mg/dL Glucose 94 (74-99) mg/dL Calcium 9.6 (8.4-10.2) mg/dL AST 27 (17-59) U/L ALT 40 (21-72) U/L Alkaline Phosphatase 73 (38-126) U/L Total Protein 6.3 (6.3-8.2) g/dL Albumin 3.7 (3.5-5.0) g/dL Triglycerides 89 (<150) mg/dL HDL Cholesterol 43 (40-60) mg/dL Thyroid panel 11/17/18 Range/Units 11:55 TSH 2.880 (0.465-4.680) mIU/L Calcium panel 11/17/18 Range/Units 11:55 Calcium 9.6 (8.4-10.2) mg/dL Albumin 3.7 (3.5-5.0) g/dL Pituitary panel 11/17/18 Range/Units 11:55 Sodium 139 (137-145) mmol/L Potassium 4.9 (3.5-5.1) mmol/L Chloride 108 H (98-107) mmol/L Carbon Dioxide 26 (22-30) mmol/L BUN 12 (9-20) mg/dL Creatinine 0.73 (0.66-1.25) mg/dL Glucose 94 (74-99) mg/dL Calcium 9.6 (8.4-10.2) mg/dL TSH 2.880 (0.465-4.680) mIU/L Adrenal panel 11/17/18 Range/Units 11:55 Sodium 139 (137-145) mmol/L Potassium 4.9 (3.5-5.1) mmol/L Chloride 108 H (98-107) mmol/L Carbon Dioxide 26 (22-30) mmol/L BUN 12 (9-20) mg/dL Creatinine 0.73 (0.66-1.25) mg/dL Glucose 94 (74-99) mg/dL Calcium 9.6 (8.4-10.2) mg/dL Total Bilirubin 0.5 (0.2-1.3) mg/dL AST 27 (17-59) U/L ALT 40 (21-72) U/L Alkaline Phosphatase 73 (38-126) U/L Total Protein 6.3 (6.3-8.2) g/dL Albumin 3.7 (3.5-5.0) g/dL - Imaging Comments: ANA LUISA results reviewed. FEV1 results reviewed. Chest x-ray: report reviewed, image reviewed EKG: image reviewed Additional studies: Cardiac catheterization films and results were reviewed by by Dr. Celestino Bautista. Assessment and Plan (1) GERD (gastroesophageal reflux disease) Current Visit: Yes Status: Acute Code(s): K21.9 - GASTRO-ESOPHAGEAL REFLUX DISEASE WITHOUT ESOPHAGITIS SNOMED Code(s): 194532229 (2) Peripheral vascular disease Current Visit: Yes Status: Acute Code(s): I73.9 - PERIPHERAL VASCULAR DISEASE, UNSPECIFIED SNOMED Code(s): 614296868 (3) Abnormal ankle brachial index (ANA LUISA) Current Visit: Yes Status: Acute Code(s): R68.89 - OTHER GENERAL SYMPTOMS AND SIGNS SNOMED Code(s): 871895282 (4) Family history of premature coronary artery disease Current Visit: Yes Status: Acute Code(s): Z82.49 - FAMILY HX OF ISCHEM HEART DIS AND OTH DIS OF THE CIRC SYS SNOMED Code(s): 919396014 (5) Non-STEMI (non-ST elevated myocardial infarction) Current Visit: Yes Status: Acute Code(s): I21.4 - NON-ST ELEVATION (NSTEMI) MYOCARDIAL INFARCTION SNOMED Code(s): 34532535 Plan: The patient was seen and examined. Chart diagnostics were reviewed. Dr. Celestino Bautista met with the patient and his , discussed the cardiac catheterization findings with the patient and his . Dr. Bautista is recommending proceeding with myocardial revascularization surgery and has discussed the risks and benefits and the STS risk score with the patient. The patient wishes to proceed with the myocardial arrest position surgery and will be scheduled for myocardial revascularization surgery with PLASCENCIA and endoscopic vein harvest tomorrow 11/18/2018 to be performed by Dr. Celestino Bautista. A 5 minute walk test has been completed with the patient time 1: 4.30 seconds, time 2: 4.01 seconds, time 3: 3.55 seconds. Preoperative teaching and preoperative testing has been initiated. A bedside FEV1 has been completed and showed a 76% predicted value. Continue heparin drip which will be turned off 2 hours prior to surgery. Continue to optimize medical management. Importance of smoking cessation has been discussed with the patient. Dr. Lopez has been consulted for pulmonary and ventilator management. Thank you Dr. MER Pichardo for this consult and we will look forward to working with you in the care of your patient. Time with Patient: Greater than 30
[2018-11-17] MEDS: SODIUM CHLORIDE 0.9% 1,000 ML IV SCH ×2 (16:24→20:05)
[2018-11-17] MEDS: HEPARIN SOD,PORK IN 0.45% NACL 25,000 UNIT in 0.45% NACL 1 250ML.BAG IV SCH (16:38)
--- NOTE | 2018-11-17 16:44 | ECHOF ---
Referral Reason:Acute Ant NSTEMI--asees LV Fx and Mitral valve MEASUREMENTS -------- HEIGHT: 170.2 cm WEIGHT: 78.9 kg BP: IVSd: 1.1 cm (0.6 - 1.1) LVIDd: 4.6 cm (3.9 - 5.3) LVPWd: 0.9 cm (0.6 - 1.1) IVSs: 1.4 cm LVIDs: 4.2 cm LVPWs: 1.3 cm LAESV Index (A-L): 20.21 ml/m Ao Diam: 3.4 cm (2.0 - 3.7) AV Cusp: 2.0 cm (1.5 - 2.6) LA Diam: 3.6 cm (2.7 - 3.8) MV EXCURSION: 18.807 mm (> 18.000) MV EF SLOPE: 100 mm/s (70 - 150) EPSS: 0.5 cm MV E Tim: 0.53 m/s MV DecT: 303 ms MV A Tim: 0.73 m/s MV E/A Ratio: 0.72 AR PHT: 680 ms RAP: 5.00 mmHg RVSP: 16.50 mmHg FINDINGS -------- Sinus rhythm. This was a technically good study. The left ventricular size is normal. Left ventricular wall thickness is normal. Overall left vent ricular systolic function is low-normal with, an EF between 50 - 55 %. The right ventricle is normal in size. The left atrial size is normal. The right atrial size is normal. There is mild aortic regurgitation. Mild mitral annular calcification present. Mild mitral regurgitation is present. Mild tricuspid regurgitation present. There is no evidence of pulmonary hypertension. The right v entricular systolic pressure, as measured by Doppler, is 16.50mmHg. There is no pulmonic regurgitation present. Ascending Aortic is dilated and measures 3.9cm. There is no pericardial effusion. CONCLUSIONS -------- 1. The left ventricular size is normal. 2. Left ventricular wall thickness is normal. 3. Overall left ventricular systolic function is low-normal with, an EF between 50 - 55 %. 4. The right ventricle is normal in size. 5. The left atrial size is normal. 6. The right atrial size is normal. 7. There is mild aortic regurgitation. 8. Mild mitral annular calcification present. 9. Mild mitral regurgitation is present. 10. Mild tricuspid regurgitation present. 11. There is no evidence of pulmonary hypertension. 12. The right ventricular systolic pressure, as measured by Doppler, is 16.50mmHg. 13. There is no pulmonic regurgitation present. 14. Ascending Aortic is dilated and measures 3.9cm. 15. There is no pericardial effusion. STREET CAR INSPECTOR: Yulia Aguilar RDCS
[2018-11-17] MEDS ORDERED: HEPARIN SODIUM,PORCINE 5,000 UNIT/ML 1 ML VIAL IV PRN (18:41)
[2018-11-17 19:56] LABS: Appearance,Urine Clear (Clear); Bilirubin,Urine Negative (Negative); Blood,Urine Negative (Negative); Color,Urine Yellow; Glucose,Urine (UA) Negative (Negative); Ketones,Urine Negative (Negative); Leukocyte Esterase,Urine Negative (Negative); Nitrite,Urine Negative (Negative); PH, Urine 6.5 (5.0-8.0); Protein,Urine Negative (Negative); Specific Gravity,Urine 1.027 (1.001-1.035); Urobilinogen,Urine <2.0 mg/dL (<2.0)
[2018-11-17] MEDS ORDERED: MUPIROCIN 2% OINT 22 GM TUBE NASAL SCH (21:00)
[2018-11-17] MEDS ORDERED: METOPROLOL TARTRATE 25 MG TAB PO SCH (21:00)
[2018-11-17] MEDS ORDERED: ATORVASTATIN 80 MG TAB PO SCH (21:00)
[2018-11-17 23:23] LABS: Hepatitis A Antibody IgM Non-Reactive (Non-Reactive); Hepatitis B Core IgM Non-Reactive (Non-Reactive)
[2018-11-17 23:43] LABS: Hemoglobin A1C 5.8 % (4.0-6.0)
[2018-11-18 04:43] LABS: MCH 29.4 pg (25.0-35.0); MCHC 31.9 g/dL (31.0-37.0); Mean Platelet Volume 6.3; Platelet Count 398 k/uL (150-450); RBC 4.78 m/uL (4.30-5.90); RDW 12.7 % (11.5-15.5); WBC 10.4 k/uL (3.8-10.6)
[2018-11-18 04:58] LABS: Anion Gap 7 mmol/L; Blood Urea Nitrogen 15 mg/dL (9-20); Calcium 9.4 mg/dL (8.4-10.2); Carbon Dioxide 26 mmol/L (22-30); Chloride 106 mmol/L (98-107); Glucose 104 mg/dL (74-99); Potassium 4.8 mmol/L (3.5-5.1); Sodium 139 mmol/L (137-145)
[2018-11-18] MEDS ORDERED: DEXTROSE 5% IN WATER 1,000 ML with POTASSIUM CHLORIDE 110 MEQ, MAGNESIUM SULFATE 16 MEQ... IV SCH ×5 (05:00)
[2018-11-18] MEDS ORDERED: INSULIN REGULAR 100 UNIT in SODIUM CHLORIDE 0.9% 100 ML IV ONE (05:00)
[2018-11-18] MEDS ORDERED: ATORVASTATIN 10 MG TAB PO ONE (05:00)
[2018-11-18] MEDS ORDERED: ceFAZolin 2,000 MG in SODIUM CHLORIDE 0.9% 30 ML IVPB ONE (05:00)
[2018-11-18] MEDS ORDERED: NITROGLYCERIN-D5W PMX 50 MG in DEXTROSE/WATER 1 250ML.BAG IV ONE (05:00)
[2018-11-18] MEDS ORDERED: PROPOFOL 1,000 MG in EMPTY BAG 1 BAG IV ONE (05:00)
[2018-11-18] MEDS ORDERED: NOREPINEPHRINE 4 MG in SODIUM CHLORIDE 0.9% 250 ML IV SCH (05:00)
[2018-11-18] MEDS ORDERED: PROTAMINE SULFATE 10 MG/ML 25 ML VIAL IV ONE ×2 (05:00→07:41)
[2018-11-18] MEDS ORDERED: NITROGLYCERIN-D5W PMX 25 MG/250 ML BTL IV ONE (05:00)
[2018-11-18] MEDS ORDERED: MAGNESIUM SULFATE SYG 4.06 MEQ/ML SYRINGE IV ONE (05:00)
[2018-11-18] MEDS ORDERED: CLEVIDIPINE BUTYRATE 25 MG in EMPTY BAG 1 BAG IV ONE (05:00)
[2018-11-18] MEDS ORDERED: CHLORHEXIDINE GLUCONATE 15 ML CUP MUCOUS MEM ONE (05:00)
[2018-11-18] MEDS ORDERED: ceFAZolin 2 GM in SODIUM CHLORIDE 0.9% 30 ML IVPB ONE (05:00)
[2018-11-18] MEDS ORDERED: DEXTROSE 5% IN WATER 1,000 ML with POTASSIUM CHLORIDE 25 MEQ, SODIUM CHLORIDE 2.5MEQ/ML... IV SCH ×6 (05:00)
[2018-11-18] MEDS ORDERED: MANNITOL 25% 12.5 GM/50 ML VIAL IV ONE ×2 (05:00)
[2018-11-18] MEDS ORDERED: ASPIRIN 325 MG TAB PO ONE (05:00)
[2018-11-18] MEDS ORDERED: SODIUM BICARB 8.4% 50 ML SYR (1 MEQ/ML) IV ONE (05:00)
[2018-11-18] MEDS ORDERED: TRANEXAMIC ACID 2,000 MG in SODIUM CHLORIDE 0.9% 180 ML IV ONE (05:00)
[2018-11-18] MEDS ORDERED: PHENYLEPHRINE-0.9% NACL SYG 1 MG/10 ML SYRINGE IV ONE ×4 (05:00)
[2018-11-18] MEDS ORDERED: HEPARIN SODIUM,PORCINE 5,000 UNIT in SODIUM CHLORIDE 0.9% 500 ML 500 ML IV ONE (05:00)
[2018-11-18] MEDS ORDERED: PROTAMINE SULFATE 250 MG in EMPTY BAG 1 BAG IV ONE (05:00)
[2018-11-18] MEDS ORDERED: CALCIUM CHLORIDE 100 MG/ML 10 ML SYRINGE IVP ONE (05:00)
[2018-11-18] MEDS ORDERED: ALBUMIN HUMAN 25% 50 ML in EMPTY BAG 1 BAG IVPB ONE (05:00)
[2018-11-18] MEDS ORDERED: PHENYLEPHRINE 40 MG in SODIUM CHLORIDE 0.9% 250 ML IV ONE (05:00)
[2018-11-18] MEDS ORDERED: PAPAVERINE 360 MG in SODIUM CHLORIDE 0.9% 90 ML IV ONE (05:00)
[2018-11-18] MEDS ORDERED: METOPROLOL TARTRATE 12.5 MG TAB PO ONE (05:00)
[2018-11-18] MEDS ORDERED: HEPARIN SODIUM 1,000 UN/ML (10ML VL) IV ONE (05:00)
[2018-11-18] MEDS ORDERED: fentaNYL (PF) 50 MCG/ML 50 ML VIAL ONE (07:41)
[2018-11-18] MEDS ORDERED: CALCIUM CHLORIDE 100 MG/ML 10 ML SYRINGE ONE (07:41)
[2018-11-18] MEDS ORDERED: ELECTROLYTE-R (PH 7.4) 1,000 ML IV.SOLN IV ONE (07:41)
[2018-11-18] MEDS ORDERED: HEPARIN SODIUM,PORCINE 10,000 UNIT/ML 1 ML VIAL ONE (07:41)
[2018-11-18] MEDS ORDERED: PROTAMINE SULFATE 10 MG/ML 5 ML VIAL IV ONE (07:41)
[2018-11-18] MEDS ORDERED: SODIUM CHLORIDE 0.9% 250 ML BAG ONE (07:41)
[2018-11-18] MEDS ORDERED: MAGNESIUM SULFATE 4 MEQ/ML 10ML VIAL ONE (07:41)
[2018-11-18] MEDS ORDERED: fentaNYL (PF) 50 MCG/ML 2 ML AMP ONE (07:41)
[2018-11-18] MEDS ORDERED: LIDOCAINE HCL/PF 20 MG/ML 10 ML AMP ONE (07:41)
[2018-11-18] MEDS ORDERED: VECURONIUM 10 MG VIAL IV ONE (07:41)
[2018-11-18] MEDS ORDERED: PROPOFOL 10 MG/ML 20 ML VIAL IV ONE (07:41)
[2018-11-18] MEDS ORDERED: MIDAZOLAM 2 MG/2 ML VIAL ONE (07:41)
[2018-11-18] MEDS ORDERED: LACTATED RINGERS 1,000 ML BAG IV ONE (07:41)
[2018-11-18] MEDS ORDERED: TRANEXAMIC ACID 1,000 MG/10 ML VIAL ONE (07:41)
[2018-11-18 08:37] LABS: ABG Base Excess -1.4 mmol/L; ABG HCO3 23 mmol/L (21-25); ABG PCO2 39 mmHg (35-45); ABG PH 7.39 (7.35-7.45); ABG Potassium Whole Blood 4.2 mmol/L (3.4-4.5); ABG Sodium Whole Blood 139 mmol/L (135-146); ABG TCO2 25 mmol/L (19-24)
--- NOTE | 2018-11-18 09:00 | PN ---
PROGRESS NOTE DATE OF SERVICE: 11/18/2018 This is a 53-year-old gentleman who I am asked to see in consultation. He was seen yesterday in consultation. The patient went to the operating room this morning for anticipated bypass grafting. He came in with chest pain, was found to have significant CAD with 75% LAD lesion. The patient has a history of chronic tobacco dependence for 40 years and history of gastroesophageal reflux disease. Lung functions were reasonable. The surgery was to be done by Dr. Bautista. His EKG reveals sinus rhythm and he had very subtle ST and T-wave abnormalities. Troponins were elevated at 0.169, 0.403 and 0.555. The patient was placed on a heparin drip. Also, he got some nitroglycerin paste. This morning, the patient was on room air. At nighttime when he sleeps, he was on 2 L. He was on heparin drip which was stopped before the surgery. He is also getting a saline IV at 100 mL an hour. He had an uneventful night. PHYSICAL EXAMINATION: Current vital signs are reviewed. Temperature was 98, heart rate 62, respiratory rate 14, blood pressure 121/87, mean 98, and saturations on room air 97%. Appears in no acute distress. HEENT examination is grossly unremarkable. Neck is supple. Full range of motion. Cardiovascular examination reveals regular rhythm and rate. S1, S2 normal. Lungs are clear. Breath sounds equal. Abdomen is soft. Bowel sounds are heard. Extremities are intact. No cyanosis, clubbing, or edema. Skin without rash. Neurologic examination is brief but nonfocal. LABS: Reviewed. White count, hemoglobin, hematocrit, and platelet count all normal. Likewise sodium, potassium, chloride CO2 are all normal. Anion gap normal. BUN and creatinine were normal. Urine was negative. Hepatitis serology was negative. Chest x-ray was reviewed yesterday. Medications are reviewed. ASSESSMENT: 1. Chest pain, with significant coronary artery disease, and anticipated bypass grafting today. 2. Chronic tobacco dependence. 3. Possible chronic obstructive pulmonary disease. 4. Gastroesophageal reflux disease. PLAN: We will await the patient later today. The patient is going to have a bypass grafting by Dr. Bautista. I will be called certainly for vent changes and hopefully rapid weaning and extubation. Additional recommendations and suggestions are forthcoming. Pulmonary function tests were reviewed. They were signed off by me. Medications, labs and x- rays were all reviewed. Prognosis is guarded. MMODL / IJN: [id number] /
[2018-11-18] MEDS ORDERED: SODIUM CHLORIDE 0.9% 500 ML 500 ML with HEPARIN SODIUM,PORCINE 5,000 UNIT IV ONE ×2 (09:02)
[2018-11-18 09:37] LABS: ABG Base Excess -2.4 mmol/L; ABG HCO3 23 mmol/L (21-25); ABG Oxygen Saturation 99.5 % (94-97); ABG PCO2 43 mmHg (35-45); ABG PH 7.34 (7.35-7.45); ABG PO2 179 mmHg (83-108); ABG Potassium Whole Blood 4.1 mmol/L (3.4-4.5); ABG Sodium Whole Blood 139 mmol/L (135-146); ABG TCO2 25 mmol/L (19-24)
[2018-11-18 10:00] LABS: ABG Base Excess -1.5 mmol/L; ABG HCO3 23 mmol/L (21-25); ABG PCO2 39 mmHg (35-45); ABG PH 7.39 (7.35-7.45); ABG PO2 379 mmHg (83-108); ABG Sodium Whole Blood 135 mmol/L (135-146); ABG TCO2 25 mmol/L (19-24)
[2018-11-18 10:28] LABS: ABG Base Excess -1.3 mmol/L; ABG HCO3 24 mmol/L (21-25); ABG Oxygen Saturation 99.9 % (94-97); ABG PCO2 39 mmHg (35-45); ABG PH 7.39 (7.35-7.45); ABG PO2 317 mmHg (83-108); ABG Sodium Whole Blood 136 mmol/L (135-146); ABG TCO2 25 mmol/L (19-24)
[2018-11-18 10:36] LABS: ABG PO2 >420 mmHg (83-108)
[2018-11-18 11:04] LABS: ABG Base Excess -2.2 mmol/L; ABG HCO3 24 mmol/L (21-25); ABG Oxygen Saturation 99.7 % (94-97); ABG PCO2 46 mmHg (35-45); ABG PH 7.32 (7.35-7.45); ABG PO2 248 mmHg (83-108); ABG Potassium Whole Blood 4.5 mmol/L (3.4-4.5); ABG Sodium Whole Blood 138 mmol/L (135-146); ABG TCO2 25 mmol/L (19-24)
[2018-11-18] MEDS ORDERED: IPRATROPIUM-ALBUTEROL 3 ML NEB INHALATION PRN (12:03)
[2018-11-18] MEDS ORDERED: Phosphorus Replacement Protoco 1 EACH MISC MISCELLANE PRN (12:03)
[2018-11-18] MEDS ORDERED: ONDANSETRON 4 MG/2 ML VIAL IVP PRN (12:03)
[2018-11-18] MEDS ORDERED: Magnesium Replacement Protocol 1 EACH MISC MISCELLANE PRN (12:03)
[2018-11-18] MEDS ORDERED: NITROGLYCERIN-D5W PMX 50 MG in DEXTROSE/WATER 1 250ML.BAG IV SCH (12:03)
[2018-11-18] MEDS ORDERED: DEXTROSE 5% IN WATER 100 ML with AMIODARONE 150 MG IV PRN (12:03)
[2018-11-18] MEDS ORDERED: ALBUMIN HUMAN 5% 250 ML in EMPTY BAG 1 BAG IVPB PRN (12:03)
[2018-11-18] MEDS ORDERED: AMIODARONE 450 MG in DEXTROSE 5% IN WATER 250 ML IV PRN ×2 (12:03)
[2018-11-18] MEDS ORDERED: IPRATROPIUM-ALBUTEROL 3 ML NEB INHALATION SCH (12:03)
[2018-11-18] MEDS ORDERED: CALCIUM CHLORIDE 1,000 MG in SODIUM CHLORIDE 0.9% 100 ML IV PRN (12:03)
[2018-11-18] MEDS ORDERED: Potassium Replacement Protocol 1 EACH MISC MISCELLANE PRN (12:03)
[2018-11-18] MEDS ORDERED: BENZOCAINE/MENTHOL LOZENG 1 EACH LOZENGE MUCOUS MEM PRN (12:03)
[2018-11-18] MEDS ORDERED: INSULIN REGULAR 100 UNIT in SODIUM CHLORIDE 0.9% 100 ML IV SCH (12:03)
[2018-11-18] MEDS ORDERED: PROPOFOL 1,000 MG in EMPTY BAG 1 BAG IV SCH (12:03)
[2018-11-18] MEDS ORDERED: PANTOPRAZOLE 40 MG/10 ML VIAL IVP SCH (12:03)
--- NOTE | 2018-11-18 12:06 | OP ---
OPERATIVE REPORT DATE OF THE OPERATION: 11/18/2018. ATTENDING SURGEON: Dr. Celestino Bautista. ASSIST: Javier Bruno and Sonali Ceja, both [place]. PREOPERATIVE DIAGNOSES: Acute anterior myocardial infarction. Two vessel coronary artery disease. POSTOPERATIVE DIAGNOSIS: Acute anterior myocardial infarction. Two vessel coronary artery disease. PROCEDURE PERFORMED: Urgent coronary artery bypass grafting x2 with left internal mammary to left anterior descending artery, reverse saphenous vein graft off the aorta to the diagonal artery with right lower extremity greater saphenous vein harvesting endoscopically and clip ligation of the left atrial appendage with a #35 mm AtriClip and intraoperative REINIER. ANESTHESIA: General. BLOOD LOSS: 500 mL. SUMMARY: The patient brought to the operating room, placed supine position. After administration of general endotracheal anesthetic, placement of a [place]-Jane catheter, arterial line adequate IV access, Stahl catheter, patient carefully prepped and draped in a usual sterile fashion using Betadine paint and sterile towels. Greater saphenous vein was harvested via the endoscopic vein harvesting technique from the right lower extremity. All branches were doubly tied and divided and the incisions closed in 2 layers. A midline incision in the chest made. Sternum divided. Pericardium was opened. Heart size was normal caliber. The aorta was soft. Left pleural space was then opened. The left internal mammary artery harvested as a pedicle from the xiphoid to the left subclavian vein. It was of 1.8 mm quality but with reasonable flow. The patient was heparinized and . The aorta and vena cava were cannulated. Antegrade and cardioplegia catheter positioned. The patient was placed on bypass, cross-clamp placed, the heart arrested with 1250 mL of antegrade cardioplegia, antegrade cardioplegia was then delivered 200 to 300 mL at the end of each 15 to 30 minutes intervals. The distal anastomoses were constructed, first the base of the left atrial appendage was measured. A 35 mm AtriClip was then brought into the field, opened, secured at the base officially obliterating the left atrial appendage. Reverse saphenous vein graft anastomosis to the high diagonal artery was constructed using a 7- 0 Prolene running suture. Caliber of this vessel was 1.75 mm. Next, the left internal mammary artery was beveled. Distal anastomosis to the mid left anterior descending artery constructed using an 8-0 Prolene running suture. Caliber of this vessel was 1.75 mm. Under single cross-clamp, a single proximal anastomosis was constructed on the ascending aorta using 6-0 Prolene running suture. Patient's head was placed head down. The aortic root was vented. Complete de-airing maneuvers performed. Cross- clamp was then removed. Once beating normal sinus rhythm, patient was brought off bypass, came off bypass uneventfully with good hemodynamics. Protamine delivered. Patient decannulated. Ventricular pacing wires were placed. Mediastinal left pleural chest tubes were placed. At this point, the sternum was closed with 5 #6 sternal wires and 2 [place] [id number] cables, sternal cable closure devices. The skin and subcutaneous tissue fascia closed in 3 layers. No complications. The patient tolerated procedure well, was taken to the cardiovascular intensive care unit in stable condition. TERESSA / CARON: [id number] /
[2018-11-18] MEDS: DILTIAZEM 50 MG in SODIUM CHLORIDE 0.9% 40 ML IV SCH ×2 (12:25→17:13)
[2018-11-18 12:36] LABS: Basophils % (A) 0 %; Eosinophils # (A) 0.2 k/uL (0-0.7); Eosinophils % (A) 1 %; HCT 33.7 % (39.0-53.0); HGB 11.4 gm/dL (13.0-17.5); Lymphocytes # (A) 1.6 k/uL (1.0-4.8); Lymphocytes % (A) 11 %; MCH 30.7 pg (25.0-35.0); MCHC 33.7 g/dL (31.0-37.0); MCV 91.1 fL (80.0-100.0); Mean Platelet Volume 6.7; Monocytes # (A) 0.5 k/uL (0-1.0); Monocytes % (A) 3 %; Neutrophils # (A) 11.9 k/uL (1.3-7.7); Neutrophils % (A) 84 %; Platelet Count 235 k/uL (150-450); RDW 12.8 % (11.5-15.5); WBC 14.2 k/uL (3.8-10.6)
[2018-11-18 12:38] LABS: Glucose,Whole Blood 104 mg/dL (75-99)
[2018-11-18 12:44] LABS: Prothrombin Time 10.5 sec (9.0-12.0)
[2018-11-18 12:48] LABS: Ionized Calcium 5.3 mg/dL (4.5-5.3)
[2018-11-18 13:04] LABS: ABG Base Excess -2.8 mmol/L; ABG HCO3 24 mmol/L (21-25); ABG PCO2 51 mmHg (35-45); ABG PH 7.28 (7.35-7.45); ABG PO2 327 mmHg (83-108); ABG TCO2 26 mmol/L (19-24)
[2018-11-18] MEDS: CLEVIDIPINE BUTYRATE 25 MG in EMPTY BAG 1 BAG IV SCH (13:14)
[2018-11-18 13:16] LABS: ALT 29 U/L (21-72); AST 31 U/L (17-59); Albumin 3.5 g/dL (3.5-5.0); Alkaline Phosphatase 45 U/L (38-126); Anion Gap 6 mmol/L; Blood Urea Nitrogen 12 mg/dL (9-20); Calcium 9.2 mg/dL (8.4-10.2); Carbon Dioxide 25 mmol/L (22-30); Chloride 109 mmol/L (98-107); Glucose 99 mg/dL (74-99); Magnesium 2.5 mg/dL (1.6-2.3); Potassium 4.6 mmol/L (3.5-5.1); Sodium 140 mmol/L (137-145); Total Bilirubin 0.7 mg/dL (0.2-1.3); Total Protein 5.6 g/dL (6.3-8.2)
[2018-11-18] MEDS: ACETAMINOPHEN IV (For NPO) 1,000 MG in EMPTY BAG 1 BAG IVPB SCH ×2 (13:18→20:40)
--- NOTE | 2018-11-18 13:28 | XR ---
EXAMINATION TYPE: XR chest 1V portable DATE OF EXAM: 11/18/2018 CLINICAL HISTORY: Difficulty breathing and chest pain. Postoperative cardiac surgery. TECHNIQUE: Single AP portable upright view of the chest is obtained. COMPARISON: Chest x-ray from 2 days earlier FINDINGS: There is new endotracheal tube with tip at aortic knob level, approximately 4 to 5 cm abov e the sheyla. There is new orogastric tube projecting below diaphragm. There is new left-sided chest tube and mediastinal drainage catheter. There is new right internal jugular Lipscomb-Jane catheter with t ip at level of the pulmonary outflow tract. Overlying sternal wires and mediastinal clips are now pre sent. Overlying EKG leads are seen. Overlying pacemaker wires are present. New cardiac closure device over left superior heart border noted. Cardiac silhouette size is stable and within normal limits. There is new lateral left mid lung opacit y. No large pneumothorax or pleural effusion is seen bilaterally. Osseous structures are intact. IMPRESSION: 1. New tubes and lines satisfactory in position as detailed above felt satisfactory. 2. New lateral left midlung focal atelectasis and/or infiltrate.
[2018-11-18] MEDS: SODIUM CHLORIDE 0.9% 1,000 ML IV SCH (13:39)
[2018-11-18] MEDS: LACTATED RINGERS 1,000 ML IV SCH (13:41)
[2018-11-18] MEDS: MUPIROCIN 2% OINT 22 GM TUBE NASAL SCH ×2 (13:45→21:10)
--- NOTE | 2018-11-18 13:51 | P.PN ---
Subjective Patient is admitted secondary to acute myocardial infarction found to have left main disease successfully underwent the coronary artery bypass grafting 2 with the left internal mammary artery and left anterior descending artery reverse saphenous vein graft. Patient is presently intubated posterior CABG presently on Cardizem 5 g nitro drip at 5 g propofol 10 g and weaning off patient is waking up at this time plan is to extubate him today. Active Medications Hydrocodone Bitart/Acetaminophen ([place] 5-325) 2 each PO Q4HR PRN PRN Reason: Severe Pain Hydrocodone Bitart/Acetaminophen ([place] 5-325) 1 each PO Q4HR PRN PRN Reason: Moderate Pain Albuterol/Ipratropium (Duoneb 0.5 Mg-3 Mg/3 Ml Soln) 3 ml INHALATION RT-Q2H PRN PRN Reason: Shortness Of Breath Or Wheezing Albuterol/Ipratropium (Duoneb 0.5 Mg-3 Mg/3 Ml Soln) 3 ml INHALATION RT-Q4H [facility] Stop: 11/18/18 15:00 Albuterol/Ipratropium (Duoneb 0.5 Mg-3 Mg/3 Ml Soln) 3 ml INHALATION RT-QID [facility] Aspirin (Aspirin) 325 mg PO DAILY [facility] Atorvastatin Calcium (Lipitor) 40 mg PO DAILY [facility] Benzocaine/Menthol (Cepacol Lozenge) 1 each MUCOUS MEM Q2H PRN PRN Reason: Sore Throat Bisacodyl (Dulcolax) 10 mg RECTAL DAILY PRN PRN Reason: Constipation Cefazolin Sodium (Kefzol) 2 gm IVP Q8HR [facility] Stop: 11/19/18 08:01 Clopidogrel Bisulfate (Plavix) 75 mg PO DAILY [facility] Heparin Sodium (Porcine) (Heparin) 5,000 unit SQ Q8HR [facility] Diltiazem HCl 50 mg/ Sodium (Chloride) 50 mls @ 5 mls/hr IV .Q10H [facility] Last Admin: 11/18/18 12:25 Dose: 5 mg/hr, 5 mls/hr Albumin Human 250 ml/ IV (Solution) 250 mls @ 250 mls/hr IVPB Q1HR PRN PRN Reason: For Volume Stop: 11/20/18 12:04 Acetaminophen 1,000 mg/ IV (Solution) 100 mls @ 400 mls/hr IVPB Q6H [facility] Last Admin: 11/18/18 13:18 Dose: 400 mls/hr Amiodarone HCl 150 mg/ (Dextrose/Water) 103 mls @ 618 mls/hr IV .Q10M PRN; Protocol PRN Reason: Per protocol Amiodarone HCl 450 mg/ (Dextrose/Water) 259 mls @ 34.53 mls/hr IV .Q7H31M PRN; Protocol PRN Reason: Per Protocol Calcium Chloride 1,000 mg/ (Sodium Chloride) 110 mls @ 100 mls/hr IV ONCE PRN PRN Reason: Ionized Calcium less than 4.4 Stop: 11/26/18 12:04 Clevidipine 25 mg/ IV Solution 50 mls @ 2 mls/hr IV .Q24H [facility]; Protocol Last Admin: 11/18/18 13:14 Dose: 1 mg/hr, 2 mls/hr Insulin Human Regular 100 unit (/ Sodium Chloride) 101 mls @ 0 mls/hr IV .Q0M [facility]; Protocol Lactated Ringer's (Lactated Ringers) 1,000 mls @ 50 mls/hr IV .Q20H [facility] Last Admin: 11/18/18 13:41 Dose: 50 mls/hr Nitroglycerin/Dextrose 50 mg/ (IV Solution) 250 mls @ 1.5 mls/hr IV .Q24H [facility] Last Admin: 11/18/18 13:44 Dose: 5 mcg/min, 1.5 mls/hr Propofol 1,000 mg/ IV Solution 100 mls @ 0 mls/hr IV .Q0M [facility]; Protocol Magnesium Hydroxide (Milk Of Magnesia) 2,400 mg PO BID PRN PRN Reason: Constipation Metoprolol Tartrate (Lopressor) 12.5 mg PO BID [facility] Miscellaneous Information (Magnesium Per Protocol) 1 each MISCELLANE DAILY PRN ; Protocol PRN Reason: Per Protocol Miscellaneous Information (Phosphorus Per Protocol) 1 each MISCELLANE DAILY PRN ; Protocol PRN Reason: Per Protocol Miscellaneous Information (Potassium Per Protocol) 1 each MISCELLANE DAILY PRN ; Protocol PRN Reason: Per Protocol Mupirocin (Bactroban Oint) 1 applic NASAL BID [facility] Stop: 11/21/18 12:04 Last Admin: 11/18/18 13:45 Dose: 1 applic Ondansetron HCl (Zofran) 4 mg IVP Q6HR PRN PRN Reason: Nausea And Vomiting Oxycodone HCl (Oxyir) 10 mg PO Q4H PRN PRN Reason: Severe Pain Stop: 11/19/18 14:01 Oxycodone HCl (Oxyir) 5 mg PO Q4H PRN PRN Reason: Moderate Pain Stop: 11/19/18 14:01 Pantoprazole Sodium (Protonix) 40 mg IVP DAILY [facility] Senna/Docusate Sodium (Senokot-S) 2 each PO HS [facility] Sodium Chloride (Saline Flush) 10 ml IV BID [facility] Last Admin: 11/18/18 13:46 Dose: 10 ml Objective - Vital Signs Vital signs: Vital Signs Temp 96.4 F L 11/18/18 12:30 Pulse 72 11/18/18 12:45 Resp 12 11/18/18 12:45 BP 116/89 11/18/18 12:45 Pulse Ox 100 11/18/18 12:45 Intake & Output 11/17/18 11/18/18 11/18/18 18:59 06:59 18:59 Intake Total 633.156 4210.000 31 Output Total 1000 725 660 Balance -234.994 9455.000 -629 Weight 79.9 kg Intake: IV 355 1200 31 Sodium Chloride 0.9% 1, 200 1200 000 ml @ 100 mls/hr IV . Q10H [facility] Rx#:[id number] Intake, IV Titration 336.691 121.000 Amount Heparin Sod,Pork in 0.45% 186.691 121.000 NaCl 25,000 unit In 0.45 % NaCl 1 250ml.bag @ 12 UNITS/KG/HR 8.98 mls/hr IV .Q24H [facility] Rx#: [id number] Sodium Chloride 0.9% 1, 150 000 ml In Empty Bag 1 bag @ 1 ML/KG/HR 74.84 mls/ hr IV .[id number] [facility] Rx#: [id number] Oral 0 Tube Feeding 480 Blood Product 120 240 Output: Urine 1000 725 210 Estimated Blood Loss 450 Other: Voiding Method Urinal # Voids 1 # Bowel Movements 1 ABP, PAP, CO, CI - Last Documented Arterial Blood Pressure 130/69 Pulmonary Artery Pressure 33/23 Cardiac Output 6.5 Cardiac Index 3.4 - Exam PHYSICAL EXAMINATION: GENERAL: Intubated and sedated at this time is waking up HEENT: Pupils are round and equally reacting to light. EOMI. No scleral icterus. No conjunctival pallor. Normocephalic, atraumatic. No pharyngeal erythema. No thyromegaly. CARDIOVASCULAR: S1 and S2 present. No murmurs, rubs, or gallops. PULMONARY: Chest is clear to auscultation, no wheezing or crackles. She and has left pleuraland mediastinal chest tubes ABDOMEN: Soft, nontender, nondistended, normoactive bowel sounds. No palpable organomegaly. MUSCULOSKELETAL: No joint swelling or deformity. EXTREMITIES: No cyanosis, clubbing, or pedal edema. NEUROLOGICAL: Gross neurological examination did not reveal any focal deficits. SKIN: No rashes. - Labs CBC & Chem 7: 11/18/18 12:25 11/18/18 12:25 Labs: Abnormal Lab Results - Last 24 Hours (Table) 11/17/18 11/18/18 11/18/18 Range/Units 11:55 01:24 04:24 WBC (3.8-10.6) k/uL RBC (4.30-5.90) m/uL Hgb (13.0-17.5) gm/dL Hct (39.0-53.0) % Neutrophils # (1.3-7.7) k/uL APTT 47.4 H (22.0-30.0) sec ABG pH (7.35-7.45) ABG pCO2 (35-45) mmHg ABG pO2 (83-108) mmHg ABG Total CO2 (19-24) mmol/L ABG O2 Saturation (94-97) % ABG Hematocrit (34.0-46.0) % ABG Potassium (3.4-4.5) mmol/L ABG Ionized Calcium (4.5-5.3) mg/dL ABG Glucose (75-99) mg/dL Hemoglobin (13.0-17.5) gm/dL Chloride (98-107) mmol/L Glucose 104 H (74-99) mg/dL POC Glucose (mg/dL) (75-99) mg/dL Magnesium (1.6-2.3) mg/dL Total Protein (6.3-8.2) g/dL Arterial Blood Potassium (3.4-4.5) mmol/L Arterial Blood Glucose (75-99) mg/dL Crossmatch See Detail 11/18/18 11/18/18 11/18/18 Range/Units 08:36 09:36 09:59 WBC (3.8-10.6) k/uL RBC (4.30-5.90) m/uL Hgb (13.0-17.5) gm/dL Hct (39.0-53.0) % Neutrophils # (1.3-7.7) k/uL APTT (22.0-30.0) sec ABG pH 7.34 L (7.35-7.45) ABG pCO2 (35-45) mmHg ABG pO2 >420 H 179 H 379 H (83-108) mmHg ABG Total CO2 25 H 25 H 25 H (19-24) mmol/L ABG O2 Saturation 100.0 H 99.5 H 100.0 H (94-97) % ABG Hematocrit 30 L (34.0-46.0) % ABG Potassium 5.0 H (3.4-4.5) mmol/L ABG Ionized Calcium 4.1 L (4.5-5.3) mg/dL ABG Glucose 108 H 107 H 167 H (75-99) mg/dL Hemoglobin 12.8 L 9.7 L (13.0-17.5) gm/dL Chloride (98-107) mmol/L Glucose (74-99) mg/dL POC Glucose (mg/dL) (75-99) mg/dL Magnesium (1.6-2.3) mg/dL Total Protein (6.3-8.2) g/dL Arterial Blood Potassium 5.0 H (3.4-4.5) mmol/L Arterial Blood Glucose 108 H 107 H 167 H (75-99) mg/dL Crossmatch 11/18/18 11/18/18 11/18/18 Range/Units 10:26 11:02 12:25 WBC 14.2 H (3.8-10.6) k/uL RBC 3.70 L (4.30-5.90) m/uL Hgb 11.4 L (13.0-17.5) gm/dL Hct 33.7 L (39.0-53.0) % Neutrophils # 11.9 H (1.3-7.7) k/uL APTT (22.0-30.0) sec ABG pH 7.32 L (7.35-7.45) ABG pCO2 46 H (35-45) mmHg ABG pO2 317 H 248 H (83-108) mmHg ABG Total CO2 25 H 25 H (19-24) mmol/L ABG O2 Saturation 99.9 H 99.7 H (94-97) % ABG Hematocrit 29 L 31 L (34.0-46.0) % ABG Potassium 5.0 H (3.4-4.5) mmol/L ABG Ionized Calcium 4.3 L 4.4 L (4.5-5.3) mg/dL ABG Glucose 142 H 107 H (75-99) mg/dL Hemoglobin 9.5 L 10.0 L (13.0-17.5) gm/dL Chloride (98-107) mmol/L Glucose (74-99) mg/dL POC Glucose (mg/dL) (75-99) mg/dL Magnesium (1.6-2.3) mg/dL Total Protein (6.3-8.2) g/dL Arterial Blood Potassium 5.0 H (3.4-4.5) mmol/L Arterial Blood Glucose 142 H 107 H (75-99) mg/dL Crossmatch 11/18/18 11/18/18 11/18/18 Range/Units 12:25 12:26 12:58 WBC (3.8-10.6) k/uL RBC (4.30-5.90) m/uL Hgb (13.0-17.5) gm/dL Hct (39.0-53.0) % Neutrophils # (1.3-7.7) k/uL APTT (22.0-30.0) sec ABG pH 7.28 L (7.35-7.45) ABG pCO2 51 H (35-45) mmHg ABG pO2 327 H (83-108) mmHg ABG Total CO2 26 H (19-24) mmol/L ABG O2 Saturation 100.0 H (94-97) % ABG Hematocrit (34.0-46.0) % ABG Potassium (3.4-4.5) mmol/L ABG Ionized Calcium (4.5-5.3) mg/dL ABG Glucose (75-99) mg/dL Hemoglobin (13.0-17.5) gm/dL Chloride 109 H (98-107) mmol/L Glucose (74-99) mg/dL POC Glucose (mg/dL) 104 H (75-99) mg/dL Magnesium 2.5 H (1.6-2.3) mg/dL Total Protein 5.6 L (6.3-8.2) g/dL Arterial Blood Potassium (3.4-4.5) mmol/L Arterial Blood Glucose (75-99) mg/dL Crossmatch Microbiology - Last 24 Hours (Table) 11/17/18 19:30 Urine Culture - Preliminary Urine,Voided 11/17/18 16:30 Nasal Screen MRSA/MSSA - Preliminary Nasal Swab Assessment and Plan Plan: -Acute non-ST elevation myocardial infarction: Status post cardiac catheterization with left main disease with intrinsic dissection patient is status post CABG. Patient is presently on above-mentioned drips presently intubated. -Postoperative acute respiratory failure hypoxic plan is to extubate him today. -Gastroesophageal reflux disease -Nicotine abuse: Counseling was provided
[2018-11-18 13:53] LABS: Glucose,Whole Blood 134 mg/dL (75-99)
[2018-11-18 15:03] LABS: Glucose,Whole Blood 135 mg/dL (75-99)
[2018-11-18] MEDS: ceFAZolin IN SWFI 2 GM/20 ML SYRINGE IVP SCH ×2 (15:09→23:14)
[2018-11-18] MEDS: IPRATROPIUM-ALBUTEROL 3 ML NEB INHALATION SCH ×3 (15:41→20:19)
[2018-11-18 16:10] LABS: Glucose,Whole Blood 132 mg/dL (75-99)
[2018-11-18 16:22] LABS: Basophils % (A) 0 %; Eosinophils # (A) 0.1 k/uL (0-0.7); Eosinophils % (A) 1 %; HCT 35.7 % (39.0-53.0); HGB 11.6 gm/dL (13.0-17.5); Lymphocytes # (A) 1.1 k/uL (1.0-4.8); Lymphocytes % (A) 7 %; MCH 29.7 pg (25.0-35.0); MCHC 32.5 g/dL (31.0-37.0); MCV 91.5 fL (80.0-100.0); Mean Platelet Volume 6.4; Monocytes # (A) 0.4 k/uL (0-1.0); Monocytes % (A) 3 %; Neutrophils % (A) 89 %; Platelet Count 310 k/uL (150-450); RDW 12.7 % (11.5-15.5); WBC 15.7 k/uL (3.8-10.6)
[2018-11-18 17:13] LABS: Glucose,Whole Blood 105 mg/dL (75-99)
[2018-11-18 17:20] LABS: ABG Base Excess 0.2 mmol/L; ABG HCO3 25 mmol/L (21-25); ABG Oxygen Saturation 98.8 % (94-97); ABG PCO2 42 mmHg (35-45); ABG PH 7.39 (7.35-7.45); ABG PO2 112 mmHg (83-108); ABG TCO2 27 mmol/L (19-24)
[2018-11-18 18:16] LABS: Glucose,Whole Blood 130 mg/dL (75-99)
[2018-11-18] MEDS: HEPARIN SODIUM,PORCINE 5,000 UNIT/ML 1 ML VIAL SQ SCH ×2 (18:40→23:14)
[2018-11-18 18:54] LABS: Glucose,Whole Blood 119 mg/dL (75-99)
[2018-11-18 19:12] LABS: Basophils % (A) 0 %; Eosinophils % (A) 0 %; HCT 35.7 % (39.0-53.0); Lymphocytes # (A) 0.8 k/uL (1.0-4.8); Lymphocytes % (A) 5 %; MCH 30.4 pg (25.0-35.0); MCHC 33.7 g/dL (31.0-37.0); MCV 90.1 fL (80.0-100.0); Mean Platelet Volume 6.3; Monocytes # (A) 0.5 k/uL (0-1.0); Monocytes % (A) 3 %; Neutrophils # (A) 14.3 k/uL (1.3-7.7); Neutrophils % (A) 91 %; Platelet Count 282 k/uL (150-450); RBC 3.96 m/uL (4.30-5.90); RDW 12.7 % (11.5-15.5); WBC 15.7 k/uL (3.8-10.6)
[2018-11-18 20:20] LABS: Glucose,Whole Blood 123 mg/dL (75-99)
[2018-11-18 21:09] LABS: Glucose,Whole Blood 125 mg/dL (75-99)
[2018-11-18 22:20] LABS: Glucose,Whole Blood 131 mg/dL (75-99)
[2018-11-18 23:10] LABS: Glucose,Whole Blood 124 mg/dL (75-99)
[2018-11-19 00:22] LABS: Glucose,Whole Blood 123 mg/dL (75-99)
[2018-11-19] MEDS: ACETAMINOPHEN IV (For NPO) 1,000 MG in EMPTY BAG 1 BAG IVPB SCH ×4 (01:19→20:52)
[2018-11-19 01:36] LABS: Glucose,Whole Blood 126 mg/dL (75-99)
[2018-11-19] MEDS: KETOROLAC 30 MG/ML 1 ML VIAL IVP SCH ×4 (02:09→17:00)
[2018-11-19 02:22] LABS: Glucose,Whole Blood 116 mg/dL (75-99)
[2018-11-19 04:30] LABS: Glucose,Whole Blood 119 mg/dL (75-99)
[2018-11-19 05:32] LABS: Glucose,Whole Blood 121 mg/dL (75-99)
[2018-11-19 05:42] LABS: Basophils % (A) 0 %; Eosinophils # (A) 0.1 k/uL (0-0.7); Eosinophils % (A) 1 %; HCT 36.2 % (39.0-53.0); Lymphocytes # (A) 1.6 k/uL (1.0-4.8); Lymphocytes % (A) 12 %; MCH 29.9 pg (25.0-35.0); MCHC 33.2 g/dL (31.0-37.0); MCV 90.2 fL (80.0-100.0); Mean Platelet Volume 6.5; Monocytes # (A) 0.5 k/uL (0-1.0); Monocytes % (A) 4 %; Neutrophils # (A) 10.7 k/uL (1.3-7.7); Neutrophils % (A) 82 %; Platelet Count 292 k/uL (150-450); RBC 4.01 m/uL (4.30-5.90); RDW 12.7 % (11.5-15.5); WBC 13.1 k/uL (3.8-10.6)
[2018-11-19 05:50] LABS: Partial Thromboplastin Time 23.5 sec (22.0-30.0); Prothrombin Time 10.3 sec (9.0-12.0)
[2018-11-19 05:57] LABS: ALT 30 U/L (21-72); AST 35 U/L (17-59); Albumin 3.4 g/dL (3.5-5.0); Alkaline Phosphatase 47 U/L (38-126); Anion Gap 7 mmol/L; Blood Urea Nitrogen 11 mg/dL (9-20); Carbon Dioxide 25 mmol/L (22-30); Chloride 107 mmol/L (98-107); Glucose 118 mg/dL (74-99); Magnesium 1.8 mg/dL (1.6-2.3); Potassium 4.5 mmol/L (3.5-5.1); Sodium 139 mmol/L (137-145); Total Bilirubin 0.9 mg/dL (0.2-1.3); Total Protein 5.7 g/dL (6.3-8.2)
[2018-11-19 07:26] LABS: Glucose,Whole Blood 119 mg/dL (75-99)
--- NOTE | 2018-11-19 07:55 | XR ---
EXAMINATION TYPE: XR chest 1V portable DATE OF EXAM: 11/19/2018 COMPARISON: Prior chest x-ray 11/18/2018 HISTORY: Chest tube TECHNIQUE: Single frontal view of the chest is obtained. FINDINGS: Endotracheal tube and NG tube have been removed. Right jugular central venous sheath remai ns in place, distal tip of the central venous catheter are overlying the pulmonary artery. Left chest tube, median sternal drain are again noted overlying appropriate positions. No evident pneumothorax or sizable effusion. Interstitium is increased. Patchy atelectatic changes persist greater in the lef t lower lung. There are overlying cardiac leads. Heart size may be accentuated by rotation, patient i s post median sternotomy and atrial appendage clipping. IMPRESSION: Interval extubation. There may be a component of interstitial edema, volume overload. Fo llow-up recommended.
[2018-11-19] MEDS: IPRATROPIUM-ALBUTEROL 3 ML NEB INHALATION SCH ×4 (08:08→19:30)
[2018-11-19] MEDS: MUPIROCIN 2% OINT 22 GM TUBE NASAL SCH ×2 (08:11→20:58)
[2018-11-19] MEDS: ATORVASTATIN 40 MG TAB PO SCH (08:11)
[2018-11-19] MEDS: HEPARIN SODIUM,PORCINE 5,000 UNIT/ML 1 ML VIAL SQ SCH ×2 (08:11→16:58)
[2018-11-19] MEDS: PANTOPRAZOLE 40 MG TABLET PO SCH (08:11)
[2018-11-19] MEDS: METOPROLOL TARTRATE 25 MG TAB PO SCH ×2 (08:11→20:53)
[2018-11-19] MEDS: ASPIRIN 325 MG TAB PO SCH (08:11)
[2018-11-19] MEDS: CLOPIDOGREL 75 MG TAB PO SCH (08:11)
[2018-11-19] MEDS ORDERED: BISACODYL 10 MG SUPP RECTAL PRN (08:58)
[2018-11-19] MEDS ORDERED: MAGNESIUM HYDROXIDE 2,400 MG/10 ML CUP PO PRN (08:58)
[2018-11-19] MEDS ORDERED: METOPROLOL TARTRATE 12.5 MG TAB PO SCH (09:00)
[2018-11-19] MEDS: LACTATED RINGERS 1,000 ML IV SCH (09:03)
[2018-11-19] MEDS: ceFAZolin IN SWFI 2 GM/20 ML SYRINGE IVP SCH (09:03)
[2018-11-19 09:10] LABS: Glucose,Whole Blood 139 mg/dL (75-99)
--- NOTE | 2018-11-19 09:57 | P.PN ---
Subjective Progress Note Date: 11/19/18 This is a 53-year-old gentlemanwho was admitted to the hospital with unstable angina/non-STEMI. Cardiac catheterization revealed significant disease involving the proximal LAD. Patient underwent aortocoronary bypass surgery. Patient is doing well. He is sitting up in the chair, extubated. Patient is in sinus rhythm. Denies any significant chest pain. His vital signs are stable. Patient has a [place] and also chest tubes. Overall patient clinical status seemed to be stable. Patient will continue current medical therapy. Objective - Vital Signs Vital signs: Vital Signs Temp 97.9 F 11/19/18 09:00 Pulse 84 11/19/18 09:00 Resp 18 11/19/18 09:00 BP 101/65 11/19/18 09:00 Pulse Ox 94 L 11/19/18 09:00 Intake & Output 11/18/18 11/19/18 11/19/18 18:59 06:59 18:59 Intake Total 621.700 853.5 183.033 Output Total 2510 1098 150 Balance -1888.300 -244.5 33.033 Weight 85.4 kg Intake: IV 485 803 177 CI/CO 50 90 20 Diltiazem 50 mg In Sodium 20 Chloride 0.9% 40 ml @ 5 MG/HR 5 mls/hr IV .Q10H [facility] Rx#:[id number] Lactated Ringers 1,000 ml 300 600 130 @ 20 mls/hr IV .Q24H [facility] Rx#:[id number] Nitroglycerin-D5w Pmx 50 30 5 mg In Dextrose/Water 1 250ml.bag @ 5 MCG/MIN 1.5 mls/hr IV .Q24H ONE Rx#: [id number] pressure bag 54 108 27 Intake, IV Titration 136.700 0.5 6.033 Amount ACETAMINOPHEN IV (For NPO 100 ) 1,000 mg In Empty Bag 1 bag @ 400 mls/hr IVPB Q6H [facility] Rx#:[id number] Clevidipine Butyrate 25 0.533 mg In Empty Bag 1 bag @ 1 MG/HR 2 mls/hr IV .Q24H [facility] Rx#:[id number] Diltiazem 50 mg In Sodium 34 Chloride 0.9% 40 ml @ 5 MG/HR 5 mls/hr IV .Q10H [facility] Rx#:[id number] Insulin Regular 100 unit 2.167 0.5 6.033 In Sodium Chloride 0.9% 100 ml @ Per Protocol IV .Q0M [facility] Rx#:[id number] Oral 50 Output: Chest Tube Drainage 210 280 90 Chest Tube Left Pleural/ 210 280 90 Mediastinal Gastric Drainage 200 Urine 1650 818 60 Estimated Blood Loss 450 Other: Voiding Method Indwelling Catheter Indwelling Catheter Indwelling Catheter ABP, PAP, CO, CI - Last Documented Arterial Blood Pressure 133/65 Pulmonary Artery Pressure 29/17 Cardiac Output 7.6 Cardiac Index 4.0 - Exam GENERAL EXAM: Patient is alert and oriented and doesn't appear to be in any acute distress HEENT: Normocephalic. Normal reaction of pupils, equal size, normal range of extraocular motion. No erythema or exudates in the throat. NECK: No masses, no nuchal rigidity. CHEST: postsurgical LUNGS: diminished breath sounds at bases HEART: [S1 and S2 normal ABDOMEN: No hepatosplenomegaly, normal bowel sounds, no guarding or rigidity. SKIN: No rashes CENTRAL NERVOUS SYSTEM: No focal deficits. EXTREMITIES: [No cyanosis, clubbing or edema.] - Labs CBC & Chem 7: 11/19/18 05:30 11/19/18 05:30 Labs: Abnormal Lab Results - Last 24 Hours (Table) 11/17/18 11/18/18 11/18/18 Range/Units 11:55 08:36 09:36 WBC (3.8-10.6) k/uL RBC (4.30-5.90) m/uL Hgb (13.0-17.5) gm/dL Hct (39.0-53.0) % Neutrophils # (1.3-7.7) k/uL Lymphocytes # (1.0-4.8) k/uL ABG pH 7.34 L (7.35-7.45) ABG pCO2 (35-45) mmHg ABG pO2 >420 H 179 H (83-108) mmHg ABG Total CO2 25 H 25 H (19-24) mmol/L ABG O2 Saturation 100.0 H 99.5 H (94-97) % ABG Hematocrit (34.0-46.0) % ABG Potassium (3.4-4.5) mmol/L ABG Ionized Calcium (4.5-5.3) mg/dL ABG Glucose 108 H 107 H (75-99) mg/dL Hemoglobin 12.8 L (13.0-17.5) gm/dL Chloride (98-107) mmol/L Creatinine (0.66-1.25) mg/dL Glucose (74-99) mg/dL POC Glucose (mg/dL) (75-99) mg/dL Magnesium (1.6-2.3) mg/dL Total Protein (6.3-8.2) g/dL Albumin (3.5-5.0) g/dL Arterial Blood Potassium (3.4-4.5) mmol/L Arterial Blood Glucose 108 H 107 H (75-99) mg/dL Crossmatch See Detail 11/18/18 11/18/18 11/18/18 Range/Units 09:59 10:26 11:02 WBC (3.8-10.6) k/uL RBC (4.30-5.90) m/uL Hgb (13.0-17.5) gm/dL Hct (39.0-53.0) % Neutrophils # (1.3-7.7) k/uL Lymphocytes # (1.0-4.8) k/uL ABG pH 7.32 L (7.35-7.45) ABG pCO2 46 H (35-45) mmHg ABG pO2 379 H 317 H 248 H (83-108) mmHg ABG Total CO2 25 H 25 H 25 H (19-24) mmol/L ABG O2 Saturation 100.0 H 99.9 H 99.7 H (94-97) % ABG Hematocrit 30 L 29 L 31 L (34.0-46.0) % ABG Potassium 5.0 H 5.0 H (3.4-4.5) mmol/L ABG Ionized Calcium 4.1 L 4.3 L 4.4 L (4.5-5.3) mg/dL ABG Glucose 167 H 142 H 107 H (75-99) mg/dL Hemoglobin 9.7 L 9.5 L 10.0 L (13.0-17.5) gm/dL Chloride (98-107) mmol/L Creatinine (0.66-1.25) mg/dL Glucose (74-99) mg/dL POC Glucose (mg/dL) (75-99) mg/dL Magnesium (1.6-2.3) mg/dL Total Protein (6.3-8.2) g/dL Albumin (3.5-5.0) g/dL Arterial Blood Potassium 5.0 H 5.0 H (3.4-4.5) mmol/L Arterial Blood Glucose 167 H 142 H 107 H (75-99) mg/dL Crossmatch 11/18/18 11/18/18 11/18/18 Range/Units 12:25 12:25 12:26 WBC 14.2 H (3.8-10.6) k/uL RBC 3.70 L (4.30-5.90) m/uL Hgb 11.4 L (13.0-17.5) gm/dL Hct 33.7 L (39.0-53.0) % Neutrophils # 11.9 H (1.3-7.7) k/uL Lymphocytes # (1.0-4.8) k/uL ABG pH (7.35-7.45) ABG pCO2 (35-45) mmHg ABG pO2 (83-108) mmHg ABG Total CO2 (19-24) mmol/L ABG O2 Saturation (94-97) % ABG Hematocrit (34.0-46.0) % ABG Potassium (3.4-4.5) mmol/L ABG Ionized Calcium (4.5-5.3) mg/dL ABG Glucose (75-99) mg/dL Hemoglobin (13.0-17.5) gm/dL Chloride 109 H (98-107) mmol/L Creatinine (0.66-1.25) mg/dL Glucose (74-99) mg/dL POC Glucose (mg/dL) 104 H (75-99) mg/dL Magnesium 2.5 H (1.6-2.3) mg/dL Total Protein 5.6 L (6.3-8.2) g/dL Albumin (3.5-5.0) g/dL Arterial Blood Potassium (3.4-4.5) mmol/L Arterial Blood Glucose (75-99) mg/dL Crossmatch 11/18/18 11/18/18 11/18/18 Range/Units 12:58 13:37 14:50 WBC (3.8-10.6) k/uL RBC (4.30-5.90) m/uL Hgb (13.0-17.5) gm/dL Hct (39.0-53.0) % Neutrophils # (1.3-7.7) k/uL Lymphocytes # (1.0-4.8) k/uL ABG pH 7.28 L (7.35-7.45) ABG pCO2 51 H (35-45) mmHg ABG pO2 327 H (83-108) mmHg ABG Total CO2 26 H (19-24) mmol/L ABG O2 Saturation 100.0 H (94-97) % ABG Hematocrit (34.0-46.0) % ABG Potassium (3.4-4.5) mmol/L ABG Ionized Calcium (4.5-5.3) mg/dL ABG Glucose (75-99) mg/dL Hemoglobin (13.0-17.5) gm/dL Chloride (98-107) mmol/L Creatinine (0.66-1.25) mg/dL Glucose (74-99) mg/dL POC Glucose (mg/dL) 134 H 135 H (75-99) mg/dL Magnesium (1.6-2.3) mg/dL Total Protein (6.3-8.2) g/dL Albumin (3.5-5.0) g/dL Arterial Blood Potassium (3.4-4.5) mmol/L Arterial Blood Glucose (75-99) mg/dL Crossmatch 11/18/18 11/18/18 11/18/18 Range/Units 16:00 16:07 17:08 WBC 15.7 H (3.8-10.6) k/uL RBC 3.90 L (4.30-5.90) m/uL Hgb 11.6 L (13.0-17.5) gm/dL Hct 35.7 L (39.0-53.0) % Neutrophils # 14.0 H (1.3-7.7) k/uL Lymphocytes # (1.0-4.8) k/uL ABG pH (7.35-7.45) ABG pCO2 (35-45) mmHg ABG pO2 (83-108) mmHg ABG Total CO2 (19-24) mmol/L ABG O2 Saturation (94-97) % ABG Hematocrit (34.0-46.0) % ABG Potassium (3.4-4.5) mmol/L ABG Ionized Calcium (4.5-5.3) mg/dL ABG Glucose (75-99) mg/dL Hemoglobin (13.0-17.5) gm/dL Chloride (98-107) mmol/L Creatinine (0.66-1.25) mg/dL Glucose (74-99) mg/dL POC Glucose (mg/dL) 132 H 105 H (75-99) mg/dL Magnesium (1.6-2.3) mg/dL Total Protein (6.3-8.2) g/dL Albumin (3.5-5.0) g/dL Arterial Blood Potassium (3.4-4.5) mmol/L Arterial Blood Glucose (75-99) mg/dL Crossmatch 11/18/18 11/18/18 11/18/18 Range/Units 17:14 18:13 18:52 WBC (3.8-10.6) k/uL RBC (4.30-5.90) m/uL Hgb (13.0-17.5) gm/dL Hct (39.0-53.0) % Neutrophils # (1.3-7.7) k/uL Lymphocytes # (1.0-4.8) k/uL ABG pH (7.35-7.45) ABG pCO2 (35-45) mmHg ABG pO2 112 H (83-108) mmHg ABG Total CO2 27 H (19-24) mmol/L ABG O2 Saturation 98.8 H (94-97) % ABG Hematocrit (34.0-46.0) % ABG Potassium (3.4-4.5) mmol/L ABG Ionized Calcium (4.5-5.3) mg/dL ABG Glucose (75-99) mg/dL Hemoglobin (13.0-17.5) gm/dL Chloride (98-107) mmol/L Creatinine (0.66-1.25) mg/dL Glucose (74-99) mg/dL POC Glucose (mg/dL) 130 H 119 H (75-99) mg/dL Magnesium (1.6-2.3) mg/dL Total Protein (6.3-8.2) g/dL Albumin (3.5-5.0) g/dL Arterial Blood Potassium (3.4-4.5) mmol/L Arterial Blood Glucose (75-99) mg/dL Crossmatch 11/18/18 11/18/18 11/18/18 Range/Units 19:00 20:05 21:06 WBC 15.7 H (3.8-10.6) k/uL RBC 3.96 L (4.30-5.90) m/uL Hgb 12.0 L (13.0-17.5) gm/dL Hct 35.7 L (39.0-53.0) % Neutrophils # 14.3 H (1.3-7.7) k/uL Lymphocytes # 0.8 L (1.0-4.8) k/uL ABG pH (7.35-7.45) ABG pCO2 (35-45) mmHg ABG pO2 (83-108) mmHg ABG Total CO2 (19-24) mmol/L ABG O2 Saturation (94-97) % ABG Hematocrit (34.0-46.0) % ABG Potassium (3.4-4.5) mmol/L ABG Ionized Calcium (4.5-5.3) mg/dL ABG Glucose (75-99) mg/dL Hemoglobin (13.0-17.5) gm/dL Chloride (98-107) mmol/L Creatinine (0.66-1.25) mg/dL Glucose (74-99) mg/dL POC Glucose (mg/dL) 123 H 125 H (75-99) mg/dL Magnesium (1.6-2.3) mg/dL Total Protein (6.3-8.2) g/dL Albumin (3.5-5.0) g/dL Arterial Blood Potassium (3.4-4.5) mmol/L Arterial Blood Glucose (75-99) mg/dL Crossmatch 11/18/18 11/18/18 11/19/18 Range/Units 22:18 23:06 00:18 WBC (3.8-10.6) k/uL RBC (4.30-5.90) m/uL Hgb (13.0-17.5) gm/dL Hct (39.0-53.0) % Neutrophils # (1.3-7.7) k/uL Lymphocytes # (1.0-4.8) k/uL ABG pH (7.35-7.45) ABG pCO2 (35-45) mmHg ABG pO2 (83-108) mmHg ABG Total CO2 (19-24) mmol/L ABG O2 Saturation (94-97) % ABG Hematocrit (34.0-46.0) % ABG Potassium (3.4-4.5) mmol/L ABG Ionized Calcium (4.5-5.3) mg/dL ABG Glucose (75-99) mg/dL Hemoglobin (13.0-17.5) gm/dL Chloride (98-107) mmol/L Creatinine (0.66-1.25) mg/dL Glucose (74-99) mg/dL POC Glucose (mg/dL) 131 H 124 H 123 H (75-99) mg/dL Magnesium (1.6-2.3) mg/dL Total Protein (6.3-8.2) g/dL Albumin (3.5-5.0) g/dL Arterial Blood Potassium (3.4-4.5) mmol/L Arterial Blood Glucose (75-99) mg/dL Crossmatch 11/19/18 11/19/18 11/19/18 Range/Units 01:21 02:08 04:27 WBC (3.8-10.6) k/uL RBC (4.30-5.90) m/uL Hgb (13.0-17.5) gm/dL Hct (39.0-53.0) % Neutrophils # (1.3-7.7) k/uL Lymphocytes # (1.0-4.8) k/uL ABG pH (7.35-7.45) ABG pCO2 (35-45) mmHg ABG pO2 (83-108) mmHg ABG Total CO2 (19-24) mmol/L ABG O2 Saturation (94-97) % ABG Hematocrit (34.0-46.0) % ABG Potassium (3.4-4.5) mmol/L ABG Ionized Calcium (4.5-5.3) mg/dL ABG Glucose (75-99) mg/dL Hemoglobin (13.0-17.5) gm/dL Chloride (98-107) mmol/L Creatinine (0.66-1.25) mg/dL Glucose (74-99) mg/dL POC Glucose (mg/dL) 126 H 116 H 119 H (75-99) mg/dL Magnesium (1.6-2.3) mg/dL Total Protein (6.3-8.2) g/dL Albumin (3.5-5.0) g/dL Arterial Blood Potassium (3.4-4.5) mmol/L Arterial Blood Glucose (75-99) mg/dL Crossmatch 11/19/18 11/19/18 11/19/18 Range/Units 05:30 05:30 05:30 WBC 13.1 H (3.8-10.6) k/uL RBC 4.01 L (4.30-5.90) m/uL Hgb 12.0 L (13.0-17.5) gm/dL Hct 36.2 L (39.0-53.0) % Neutrophils # 10.7 H (1.3-7.7) k/uL Lymphocytes # (1.0-4.8) k/uL ABG pH (7.35-7.45) ABG pCO2 (35-45) mmHg ABG pO2 (83-108) mmHg ABG Total CO2 (19-24) mmol/L ABG O2 Saturation (94-97) % ABG Hematocrit (34.0-46.0) % ABG Potassium (3.4-4.5) mmol/L ABG Ionized Calcium (4.5-5.3) mg/dL ABG Glucose (75-99) mg/dL Hemoglobin (13.0-17.5) gm/dL Chloride (98-107) mmol/L Creatinine 0.62 L (0.66-1.25) mg/dL Glucose 118 H (74-99) mg/dL POC Glucose (mg/dL) 121 H (75-99) mg/dL Magnesium (1.6-2.3) mg/dL Total Protein 5.7 L (6.3-8.2) g/dL Albumin 3.4 L (3.5-5.0) g/dL Arterial Blood Potassium (3.4-4.5) mmol/L Arterial Blood Glucose (75-99) mg/dL Crossmatch 11/19/18 11/19/18 Range/Units 07:23 09:00 WBC (3.8-10.6) k/uL RBC (4.30-5.90) m/uL Hgb (13.0-17.5) gm/dL Hct (39.0-53.0) % Neutrophils # (1.3-7.7) k/uL Lymphocytes # (1.0-4.8) k/uL ABG pH (7.35-7.45) ABG pCO2 (35-45) mmHg ABG pO2 (83-108) mmHg ABG Total CO2 (19-24) mmol/L ABG O2 Saturation (94-97) % ABG Hematocrit (34.0-46.0) % ABG Potassium (3.4-4.5) mmol/L ABG Ionized Calcium (4.5-5.3) mg/dL ABG Glucose (75-99) mg/dL Hemoglobin (13.0-17.5) gm/dL Chloride (98-107) mmol/L Creatinine (0.66-1.25) mg/dL Glucose (74-99) mg/dL POC Glucose (mg/dL) 119 H 139 H (75-99) mg/dL Magnesium (1.6-2.3) mg/dL Total Protein (6.3-8.2) g/dL Albumin (3.5-5.0) g/dL Arterial Blood Potassium (3.4-4.5) mmol/L Arterial Blood Glucose (75-99) mg/dL Crossmatch Microbiology - Last 24 Hours (Table) 11/17/18 16:30 Nasal Screen MRSA/MSSA - Final Nasal Swab 11/17/18 19:30 Urine Culture - Final Urine,Voided Assessment and Plan (1) S/P CABG (coronary artery bypass graft) Current Visit: Yes Status: Acute Code(s): Z95.1 - PRESENCE OF AORTOCORONARY BYPASS GRAFT SNOMED Code(s): 851040754 (2) Non-STEMI (non-ST elevated myocardial infarction) Current Visit: Yes Status: Acute Code(s): I21.4 - NON-ST ELEVATION (NSTEMI) MYOCARDIAL INFARCTION SNOMED Code(s): 65938469 (3) Peripheral vascular disease Current Visit: Yes Status: Acute Code(s): I73.9 - PERIPHERAL VASCULAR DISEASE, UNSPECIFIED SNOMED Code(s): 900835979 Plan: patient is clinically looking good. Sitting up in the chair. Vital signs are stable. No arrhythmias. Continue current medical therapy. Increase activity as tolerated
[2018-11-19] MEDS ORDERED: FUROSEMIDE 10 MG/ML 2 ML VIAL IV ONE (10:23)
--- NOTE | 2018-11-19 11:01 | PN ---
PROGRESS NOTE DATE OF SERVICE: 11/19/2018 Critical care time is 33 minutes. This is a 53-year-old male that we saw yesterday. We saw him in consultation the day before. The patient came in with chest discomfort and had a cardiac catheterization which revealed coronary artery disease. The patient underwent a 2 vessel bypass grafting yesterday. Today's postop day #1. He also had a left atrial appendage excision. The surgery was that done by Dr. Bautista. He was extubated during the rapid extubation protocol within 6 hours. Currently, the patient is doing reasonably well. He is on O2 at 4 L. He is getting an IV of LR 30 mL an hour and insulin drip at 0.5 units/ hour. His chest x-ray shows some left basilar atelectasis. All in all thought the patient is doing very reasonably well. He is having pain at the surgical site. He is doing okay with his incentive spirometer about 750 mL. He denies any shortness of breath, cough, wheezing, phlegm production. No coughing up blood. No fever, chills, nausea, vomiting or diarrhea. Current vital signs reviewed. Temperature 97.9, heart rate 84, respiratory rate 18, blood pressure 101/65, mean 77 and 4 L saturation 94%. Appears in no acute distress. HEENT examination is grossly unremarkable. Mucous membranes are moist. No oral lesions. Nasal O2 noted. NECK: Supple. Full range of motion. No adenopathy or thyromegaly. Neck veins are flat. Cardiovascular examination reveals a regular rhythm and rate. S1, S2 normal. No S3, S4, or murmur. Heart sounds are distant. Lungs reveal a few scattered rhonchi. No wheezes or crackles. Breath sounds equal bilaterally. ABDOMEN: Soft. Bowel sounds are heard. No masses or tenderness. Extremities are intact. No cyanosis, clubbing, or edema. Skin without rash. Neurologic examination is brief, but nonfocal. White count 13.1, hemoglobin 12.0, hematocrit 36.2, platelet count 292,000. PT/ INR, PTT normal. Sodium, potassium, chloride, CO2 all normal. BUN and creatinine were 11 and 0.62. Medications are reviewed. ASSESSMENT: 1. Postoperative day #1 status post 2-vessel bypass grafting and left atrial appendage excision. 2. Significant coronary artery disease discovered on cardiac catheterization. 3. Chest pain, secondary to coronary artery disease. 4. Chronic tobacco dependence. 5. Possible chronic obstructive pulmonary disease. 6. Gastroesophageal reflux disease. PLAN: Plan dated 11/19/2018. The patient is doing reasonably well. Was extubated within the first 6 hours post surgery. The patient will continue on incentive spirometer q.1 hour while awake. We encourage deep breathing, coughing and clearing of secretions. We will continue to follow him during his whole hospitalization. The patient's chest x- ray does reveal some left basilar atelectasis. Prognosis is guarded. Critical care time 33 minutes. MMODL / IJN: [id number] / MTDD
[2018-11-19] MEDS: CLEVIDIPINE BUTYRATE 25 MG in EMPTY BAG 1 BAG IV SCH (11:53)
[2018-11-19 12:03] LABS: Glucose,Whole Blood 127 mg/dL (75-99)
--- NOTE | 2018-11-19 13:14 | P.PN ---
Subjective Patient is admitted secondary to acute myocardial infarction found to have left main disease successfully underwent the coronary artery bypass grafting 2 with the left internal mammary artery and left anterior descending artery reverse saphenous vein graft. Patient is presently intubated posterior CABG presently on Cardizem 5 g nitro drip at 5 g propofol 10 g and weaning off patient is waking up at this time plan is to extubate him today. 11/19/2018 Patient is extubated clinically doing well patient can use to have a mediastinal chest tube and a left pleural chest tube having some pain when he takes a deep breath otherwise clinically doing well can use to be empty mini pain drip and amiodarone drip. Constitutional: Denied any fatigue denied any fever. Cardio vascular: denied any chest pain, palpitations Gastrointestinal denied any nausea vomiting Pulmonary: Denied any shortness of breath cough Neurologic denied any new focal deficits All inpatient medications were reviewed and appropriate changes in these medications as dictated in the interval history and assessment and plan. Objective - Vital Signs Vital signs: Vital Signs Temp 97.9 F 11/19/18 09:00 Pulse 88 11/19/18 11:58 Resp 18 11/19/18 09:00 BP 101/65 11/19/18 09:00 Pulse Ox 94 L 11/19/18 09:00 Intake & Output 11/18/18 11/19/18 11/19/18 18:59 06:59 18:59 Intake Total 621.700 853.5 183.033 Output Total 2510 1098 150 Balance -1888.300 -244.5 33.033 Weight 85.4 kg Intake: IV 485 803 177 CI/CO 50 90 20 Diltiazem 50 mg In Sodium 20 Chloride 0.9% 40 ml @ 5 MG/HR 5 mls/hr IV .Q10H [facility] Rx#:[id number] Lactated Ringers 1,000 ml 300 600 130 @ 20 mls/hr IV .Q24H [facility] Rx#:[id number] Nitroglycerin-D5w Pmx 50 30 5 mg In Dextrose/Water 1 250ml.bag @ 5 MCG/MIN 1.5 mls/hr IV .Q24H [facility] Rx#: [id number] pressure bag 54 108 27 Intake, IV Titration 136.700 0.5 6.033 Amount ACETAMINOPHEN IV (For NPO 100 ) 1,000 mg In Empty Bag 1 bag @ 400 mls/hr IVPB Q6H [facility] Rx#:[id number] Clevidipine Butyrate 25 0.533 mg In Empty Bag 1 bag @ 1 MG/HR 2 mls/hr IV .Q24H [facility] Rx#:[id number] Diltiazem 50 mg In Sodium 34 Chloride 0.9% 40 ml @ 5 MG/HR 5 mls/hr IV .Q10H [facility] Rx#:[id number] Insulin Regular 100 unit 2.167 0.5 6.033 In Sodium Chloride 0.9% 100 ml @ Per Protocol IV .Q0M [facility] Rx#:[id number] Oral 50 Output: Chest Tube Drainage 210 280 90 Chest Tube Left Pleural/ 210 280 90 Mediastinal Gastric Drainage 200 Urine 1650 818 60 Estimated Blood Loss 450 Other: Voiding Method Indwelling Catheter Indwelling Catheter Indwelling Catheter ABP, PAP, CO, CI - Last Documented Arterial Blood Pressure 133/65 Pulmonary Artery Pressure 29/17 Cardiac Output 7.6 Cardiac Index 4.0 - Exam PHYSICAL EXAMINATION: GENERAL: Patient is extubated sitting in the chair has a mediastinal and left chest tubes [place]-Jane catheter was removed HEENT: Pupils are round and equally reacting to light. EOMI. No scleral icterus. No conjunctival pallor. Normocephalic, atraumatic. No pharyngeal erythema. No thyromegaly. CARDIOVASCULAR: S1 and S2 present. No murmurs, rubs, or gallops. PULMONARY: Chest is clear to auscultation, no wheezing or crackles. She and has left pleuraland mediastinal chest tubes ABDOMEN: Soft, nontender, nondistended, normoactive bowel sounds. No palpable organomegaly. MUSCULOSKELETAL: No joint swelling or deformity. EXTREMITIES: No cyanosis, clubbing, or pedal edema. NEUROLOGICAL: Gross neurological examination did not reveal any focal deficits. SKIN: No rashes. - Labs CBC & Chem 7: 11/19/18 05:30 11/19/18 05:30 Labs: Abnormal Lab Results - Last 24 Hours (Table) 11/17/18 11/18/18 11/18/18 Range/Units 11:55 12:25 12:58 WBC (3.8-10.6) k/uL RBC (4.30-5.90) m/uL Hgb (13.0-17.5) gm/dL Hct (39.0-53.0) % Neutrophils # (1.3-7.7) k/uL Lymphocytes # (1.0-4.8) k/uL ABG pH 7.28 L (7.35-7.45) ABG pCO2 51 H (35-45) mmHg ABG pO2 327 H (83-108) mmHg ABG Total CO2 26 H (19-24) mmol/L ABG O2 Saturation 100.0 H (94-97) % Chloride 109 H (98-107) mmol/L Creatinine (0.66-1.25) mg/dL Glucose (74-99) mg/dL POC Glucose (mg/dL) (75-99) mg/dL Magnesium 2.5 H (1.6-2.3) mg/dL Total Protein 5.6 L (6.3-8.2) g/dL Albumin (3.5-5.0) g/dL Crossmatch See Detail 11/18/18 11/18/18 11/18/18 Range/Units 13:37 14:50 16:00 WBC 15.7 H (3.8-10.6) k/uL RBC 3.90 L (4.30-5.90) m/uL Hgb 11.6 L (13.0-17.5) gm/dL Hct 35.7 L (39.0-53.0) % Neutrophils # 14.0 H (1.3-7.7) k/uL Lymphocytes # (1.0-4.8) k/uL ABG pH (7.35-7.45) ABG pCO2 (35-45) mmHg ABG pO2 (83-108) mmHg ABG Total CO2 (19-24) mmol/L ABG O2 Saturation (94-97) % Chloride (98-107) mmol/L Creatinine (0.66-1.25) mg/dL Glucose (74-99) mg/dL POC Glucose (mg/dL) 134 H 135 H (75-99) mg/dL Magnesium (1.6-2.3) mg/dL Total Protein (6.3-8.2) g/dL Albumin (3.5-5.0) g/dL Crossmatch 11/18/18 11/18/18 11/18/18 Range/Units 16:07 17:08 17:14 WBC (3.8-10.6) k/uL RBC (4.30-5.90) m/uL Hgb (13.0-17.5) gm/dL Hct (39.0-53.0) % Neutrophils # (1.3-7.7) k/uL Lymphocytes # (1.0-4.8) k/uL ABG pH (7.35-7.45) ABG pCO2 (35-45) mmHg ABG pO2 112 H (83-108) mmHg ABG Total CO2 27 H (19-24) mmol/L ABG O2 Saturation 98.8 H (94-97) % Chloride (98-107) mmol/L Creatinine (0.66-1.25) mg/dL Glucose (74-99) mg/dL POC Glucose (mg/dL) 132 H 105 H (75-99) mg/dL Magnesium (1.6-2.3) mg/dL Total Protein (6.3-8.2) g/dL Albumin (3.5-5.0) g/dL Crossmatch 11/18/18 11/18/18 11/18/18 Range/Units 18:13 18:52 19:00 WBC 15.7 H (3.8-10.6) k/uL RBC 3.96 L (4.30-5.90) m/uL Hgb 12.0 L (13.0-17.5) gm/dL Hct 35.7 L (39.0-53.0) % Neutrophils # 14.3 H (1.3-7.7) k/uL Lymphocytes # 0.8 L (1.0-4.8) k/uL ABG pH (7.35-7.45) ABG pCO2 (35-45) mmHg ABG pO2 (83-108) mmHg ABG Total CO2 (19-24) mmol/L ABG O2 Saturation (94-97) % Chloride (98-107) mmol/L Creatinine (0.66-1.25) mg/dL Glucose (74-99) mg/dL POC Glucose (mg/dL) 130 H 119 H (75-99) mg/dL Magnesium (1.6-2.3) mg/dL Total Protein (6.3-8.2) g/dL Albumin (3.5-5.0) g/dL Crossmatch 11/18/18 11/18/18 11/18/18 Range/Units 20:05 21:06 22:18 WBC (3.8-10.6) k/uL RBC (4.30-5.90) m/uL Hgb (13.0-17.5) gm/dL Hct (39.0-53.0) % Neutrophils # (1.3-7.7) k/uL Lymphocytes # (1.0-4.8) k/uL ABG pH (7.35-7.45) ABG pCO2 (35-45) mmHg ABG pO2 (83-108) mmHg ABG Total CO2 (19-24) mmol/L ABG O2 Saturation (94-97) % Chloride (98-107) mmol/L Creatinine (0.66-1.25) mg/dL Glucose (74-99) mg/dL POC Glucose (mg/dL) 123 H 125 H 131 H (75-99) mg/dL Magnesium (1.6-2.3) mg/dL Total Protein (6.3-8.2) g/dL Albumin (3.5-5.0) g/dL Crossmatch 11/18/18 11/19/18 11/19/18 Range/Units 23:06 00:18 01:21 WBC (3.8-10.6) k/uL RBC (4.30-5.90) m/uL Hgb (13.0-17.5) gm/dL Hct (39.0-53.0) % Neutrophils # (1.3-7.7) k/uL Lymphocytes # (1.0-4.8) k/uL ABG pH (7.35-7.45) ABG pCO2 (35-45) mmHg ABG pO2 (83-108) mmHg ABG Total CO2 (19-24) mmol/L ABG O2 Saturation (94-97) % Chloride (98-107) mmol/L Creatinine (0.66-1.25) mg/dL Glucose (74-99) mg/dL POC Glucose (mg/dL) 124 H 123 H 126 H (75-99) mg/dL Magnesium (1.6-2.3) mg/dL Total Protein (6.3-8.2) g/dL Albumin (3.5-5.0) g/dL Crossmatch 11/19/18 11/19/18 11/19/18 Range/Units 02:08 04:27 05:30 WBC 13.1 H (3.8-10.6) k/uL RBC 4.01 L (4.30-5.90) m/uL Hgb 12.0 L (13.0-17.5) gm/dL Hct 36.2 L (39.0-53.0) % Neutrophils # 10.7 H (1.3-7.7) k/uL Lymphocytes # (1.0-4.8) k/uL ABG pH (7.35-7.45) ABG pCO2 (35-45) mmHg ABG pO2 (83-108) mmHg ABG Total CO2 (19-24) mmol/L ABG O2 Saturation (94-97) % Chloride (98-107) mmol/L Creatinine (0.66-1.25) mg/dL Glucose (74-99) mg/dL POC Glucose (mg/dL) 116 H 119 H (75-99) mg/dL Magnesium (1.6-2.3) mg/dL Total Protein (6.3-8.2) g/dL Albumin (3.5-5.0) g/dL Crossmatch 11/19/18 11/19/18 11/19/18 Range/Units 05:30 05:30 07:23 WBC (3.8-10.6) k/uL RBC (4.30-5.90) m/uL Hgb (13.0-17.5) gm/dL Hct (39.0-53.0) % Neutrophils # (1.3-7.7) k/uL Lymphocytes # (1.0-4.8) k/uL ABG pH (7.35-7.45) ABG pCO2 (35-45) mmHg ABG pO2 (83-108) mmHg ABG Total CO2 (19-24) mmol/L ABG O2 Saturation (94-97) % Chloride (98-107) mmol/L Creatinine 0.62 L (0.66-1.25) mg/dL Glucose 118 H (74-99) mg/dL POC Glucose (mg/dL) 121 H 119 H (75-99) mg/dL Magnesium (1.6-2.3) mg/dL Total Protein 5.7 L (6.3-8.2) g/dL Albumin 3.4 L (3.5-5.0) g/dL Crossmatch 11/19/18 11/19/18 Range/Units 09:00 11:47 WBC (3.8-10.6) k/uL RBC (4.30-5.90) m/uL Hgb (13.0-17.5) gm/dL Hct (39.0-53.0) % Neutrophils # (1.3-7.7) k/uL Lymphocytes # (1.0-4.8) k/uL ABG pH (7.35-7.45) ABG pCO2 (35-45) mmHg ABG pO2 (83-108) mmHg ABG Total CO2 (19-24) mmol/L ABG O2 Saturation (94-97) % Chloride (98-107) mmol/L Creatinine (0.66-1.25) mg/dL Glucose (74-99) mg/dL POC Glucose (mg/dL) 139 H 127 H (75-99) mg/dL Magnesium (1.6-2.3) mg/dL Total Protein (6.3-8.2) g/dL Albumin (3.5-5.0) g/dL Crossmatch Microbiology - Last 24 Hours (Table) 11/17/18 16:30 Nasal Screen MRSA/MSSA - Final Nasal Swab 11/17/18 19:30 Urine Culture - Final Urine,Voided Assessment and Plan Plan: -Acute non-ST elevation myocardial infarction: Status post cardiac catheterization with left main disease with intrinsic dissection patient is status post CABG. she is status post extubation on clevidipine drip and amiodarone drip., Antiplatelet medications Plavix and aspirin Lipitor -Postoperative acute respiratory failure hypoxic post surgery was extubated within 6 hours -Gastroesophageal reflux disease -Nicotine abuse: Counseling was provided
[2018-11-19 13:24] LABS: Glucose,Whole Blood 165 mg/dL (75-99)
--- NOTE | 2018-11-19 13:38 | P.PN ---
Subjective Progress Note Date: 11/19/18 Principal diagnosis: Acute anterior myocardial infarction this admission, 2 vessel coronary artery disease, gastroesophageal reflux disease, family history of early onset coronary artery disease with his mother having cardiac stents placed in her early 50s, peripheral vascular disease with his ANA LUISA to his left leg 0.68, chronic neck pain from herniated disks and chronic tobacco dependence. POD #1 urgent coronary artery bypass grafting 2 with left internal mammary artery to left anterior descending coronary artery, a reverse greater saphenous vein graft off the aorta to the diagonal coronary artery with right lower extremity greater saphenous vein harvesting endoscopically and clip ligation of the left atrial appendage with a #35 mm Atriclip an intraoperative transesophageal echocardiogram. The patient is sitting up to the bedside chair. He is in no acute distress. He is complaining of pain rating his pain to 5 out of 10 to his chest tube insertion sites. He denies any complaints of shortness of breath, remains on 4 L nasal cannula with his oxygen saturations 93%. He is achieving 500 mL with much encouragement on his incentive spirometry. He is currently hemodynamically stable and is on no inotropes or pressors at this time. Objective - Vital Signs Vital signs: Vital Signs Temp 97.6 F 11/19/18 12:00 Pulse 92 11/19/18 13:00 Resp 20 11/19/18 13:00 BP 123/93 11/19/18 13:00 Pulse Ox 94 L 11/19/18 13:00 Intake & Output 11/18/18 11/19/18 11/19/18 18:59 06:59 18:59 Intake Total 621.700 853.5 329.166 Output Total 2510 1098 1140 Balance -1888.300 -244.5 -810.834 Weight 85.4 kg Intake: IV 485 803 321 CI/CO 50 90 20 Diltiazem 50 mg In Sodium 20 Chloride 0.9% 40 ml @ 5 MG/HR 5 mls/hr IV .Q10H [facility] Rx#:[id number] Lactated Ringers 1,000 ml 300 600 250 @ 20 mls/hr IV .Q24H [facility] Rx#:[id number] Nitroglycerin-D5w Pmx 50 30 5 mg In Dextrose/Water 1 250ml.bag @ 5 MCG/MIN 1.5 mls/hr IV .Q24H [facility] Rx#: [id number] pressure bag 54 108 51 Intake, IV Titration 136.700 0.5 8.166 Amount ACETAMINOPHEN IV (For NPO 100 ) 1,000 mg In Empty Bag 1 bag @ 400 mls/hr IVPB Q6H [facility] Rx#:[id number] Clevidipine Butyrate 25 0.533 mg In Empty Bag 1 bag @ 1 MG/HR 2 mls/hr IV .Q24H [facility] Rx#:[id number] Diltiazem 50 mg In Sodium 34 Chloride 0.9% 40 ml @ 5 MG/HR 5 mls/hr IV .Q10H [facility] Rx#:[id number] Insulin Regular 100 unit 2.167 0.5 8.166 In Sodium Chloride 0.9% 100 ml @ Per Protocol IV .Q0M [facility] Rx#:[id number] Oral 50 Output: Chest Tube Drainage 210 280 250 Chest Tube Left Pleural/ 210 280 250 Mediastinal Gastric Drainage 200 Urine 1650 818 890 Estimated Blood Loss 450 Other: Voiding Method Indwelling Catheter Indwelling Catheter Indwelling Catheter ABP, PAP, CO, CI - Last Documented Arterial Blood Pressure 89/78 Pulmonary Artery Pressure 29/17 Cardiac Output 7.6 Cardiac Index 4.0 - Constitutional General appearance: Present: cooperative, no acute distress, obese - Respiratory Details: Lungs sounds essentially clear to his bilateral upper lobes, diminished to his bilateral bases. Respirations are symmetrical and nonlabored. Oxygen saturation are 93% on 4 L nasal cannula. Mediastinal and left pleural chest tubes remain in place to low continuous wall suction -20 cm H2O. No air leak is present. Draining thin serosanguineous drainage. 180 mL output in the last 8 hours, 650 mL output since surgery. He is achieving 500 mL on his incentive spirometry. - Cardiovascular Details: Regular rhythm and rate. S1 and S2 present, negative for S3, gallop or murmur. Sternum is stable. Bedside telemetry showing normal sinus rhythm heart rate 74. Right IJ Cordis [place]-Jane catheter in place, current cardiac output 7.0, cardiac index 3.6, PA pressures 31/18, CVP 17 mmHg. Left radial arterial line in place and functioning. Heart hugger is in place and he is demonstrating appropriate use. Knee-high STERLING hose and sequential compression devices in place to his bilateral lower extremities. Atrial and ventricular epicardial pacemaker wires in place and connected to back up to bedside pacemaker generator with a VVI 50 BPM. - Gastrointestinal Gastrointestinal Comment(s): Abdomen is soft, nontender and nondistended. Hypoactive bowel sounds to all 4 abdominal quadrants. Tolerating oral intake. Passing flatus. No organomegaly. No guarding or rigidity. - Genitourinary Genitourinary Comment(s): Stahl catheter for accurate I&O. Draining clear yellow urine. 415 mL output in the last 8 hours. - Integumentary Integumentary Comment(s): Skin is warm and dry. No clubbing or cyanosis present. Midline sternal incision is clean, dry and approximated. No drainage or redness present. Gauze dressing clean and dry. Right lower extremity EVH site clean, dry and approximated. No drainage or redness present. - Neurologic Neurologic: Present: CNII-XII intact - Musculoskeletal Musculoskeletal: Present: gait normal, generalized weakness, strength equal bilaterally - Psychiatric Psychiatric: Present: A&O x's 3, appropriate affect, intact judgment & insight - Allied health notes Allied health notes reviewed: nursing - Labs CBC & Chem 7: 11/19/18 05:30 11/19/18 05:30 Labs: Abnormal Lab Results - Last 24 Hours (Table) 11/17/18 11/18/18 11/18/18 Range/Units 11:55 12:58 13:37 WBC (3.8-10.6) k/uL RBC (4.30-5.90) m/uL Hgb (13.0-17.5) gm/dL Hct (39.0-53.0) % Neutrophils # (1.3-7.7) k/uL Lymphocytes # (1.0-4.8) k/uL ABG pH 7.28 L (7.35-7.45) ABG pCO2 51 H (35-45) mmHg ABG pO2 327 H (83-108) mmHg ABG Total CO2 26 H (19-24) mmol/L ABG O2 Saturation 100.0 H (94-97) % Creatinine (0.66-1.25) mg/dL Glucose (74-99) mg/dL POC Glucose (mg/dL) 134 H (75-99) mg/dL Total Protein (6.3-8.2) g/dL Albumin (3.5-5.0) g/dL Crossmatch See Detail 11/18/18 11/18/18 11/18/18 Range/Units 14:50 16:00 16:07 WBC 15.7 H (3.8-10.6) k/uL RBC 3.90 L (4.30-5.90) m/uL Hgb 11.6 L (13.0-17.5) gm/dL Hct 35.7 L (39.0-53.0) % Neutrophils # 14.0 H (1.3-7.7) k/uL Lymphocytes # (1.0-4.8) k/uL ABG pH (7.35-7.45) ABG pCO2 (35-45) mmHg ABG pO2 (83-108) mmHg ABG Total CO2 (19-24) mmol/L ABG O2 Saturation (94-97) % Creatinine (0.66-1.25) mg/dL Glucose (74-99) mg/dL POC Glucose (mg/dL) 135 H 132 H (75-99) mg/dL Total Protein (6.3-8.2) g/dL Albumin (3.5-5.0) g/dL Crossmatch 11/18/18 11/18/18 11/18/18 Range/Units 17:08 17:14 18:13 WBC (3.8-10.6) k/uL RBC (4.30-5.90) m/uL Hgb (13.0-17.5) gm/dL Hct (39.0-53.0) % Neutrophils # (1.3-7.7) k/uL Lymphocytes # (1.0-4.8) k/uL ABG pH (7.35-7.45) ABG pCO2 (35-45) mmHg ABG pO2 112 H (83-108) mmHg ABG Total CO2 27 H (19-24) mmol/L ABG O2 Saturation 98.8 H (94-97) % Creatinine (0.66-1.25) mg/dL Glucose (74-99) mg/dL POC Glucose (mg/dL) 105 H 130 H (75-99) mg/dL Total Protein (6.3-8.2) g/dL Albumin (3.5-5.0) g/dL Crossmatch 11/18/18 11/18/18 11/18/18 Range/Units 18:52 19:00 20:05 WBC 15.7 H (3.8-10.6) k/uL RBC 3.96 L (4.30-5.90) m/uL Hgb 12.0 L (13.0-17.5) gm/dL Hct 35.7 L (39.0-53.0) % Neutrophils # 14.3 H (1.3-7.7) k/uL Lymphocytes # 0.8 L (1.0-4.8) k/uL ABG pH (7.35-7.45) ABG pCO2 (35-45) mmHg ABG pO2 (83-108) mmHg ABG Total CO2 (19-24) mmol/L ABG O2 Saturation (94-97) % Creatinine (0.66-1.25) mg/dL Glucose (74-99) mg/dL POC Glucose (mg/dL) 119 H 123 H (75-99) mg/dL Total Protein (6.3-8.2) g/dL Albumin (3.5-5.0) g/dL Crossmatch 11/18/18 11/18/18 11/18/18 Range/Units 21:06 22:18 23:06 WBC (3.8-10.6) k/uL RBC (4.30-5.90) m/uL Hgb (13.0-17.5) gm/dL Hct (39.0-53.0) % Neutrophils # (1.3-7.7) k/uL Lymphocytes # (1.0-4.8) k/uL ABG pH (7.35-7.45) ABG pCO2 (35-45) mmHg ABG pO2 (83-108) mmHg ABG Total CO2 (19-24) mmol/L ABG O2 Saturation (94-97) % Creatinine (0.66-1.25) mg/dL Glucose (74-99) mg/dL POC Glucose (mg/dL) 125 H 131 H 124 H (75-99) mg/dL Total Protein (6.3-8.2) g/dL Albumin (3.5-5.0) g/dL Crossmatch 11/19/18 11/19/18 11/19/18 Range/Units 00:18 01:21 02:08 WBC (3.8-10.6) k/uL RBC (4.30-5.90) m/uL Hgb (13.0-17.5) gm/dL Hct (39.0-53.0) % Neutrophils # (1.3-7.7) k/uL Lymphocytes # (1.0-4.8) k/uL ABG pH (7.35-7.45) ABG pCO2 (35-45) mmHg ABG pO2 (83-108) mmHg ABG Total CO2 (19-24) mmol/L ABG O2 Saturation (94-97) % Creatinine (0.66-1.25) mg/dL Glucose (74-99) mg/dL POC Glucose (mg/dL) 123 H 126 H 116 H (75-99) mg/dL Total Protein (6.3-8.2) g/dL Albumin (3.5-5.0) g/dL Crossmatch 11/19/18 11/19/18 11/19/18 Range/Units 04:27 05:30 05:30 WBC 13.1 H (3.8-10.6) k/uL RBC 4.01 L (4.30-5.90) m/uL Hgb 12.0 L (13.0-17.5) gm/dL Hct 36.2 L (39.0-53.0) % Neutrophils # 10.7 H (1.3-7.7) k/uL Lymphocytes # (1.0-4.8) k/uL ABG pH (7.35-7.45) ABG pCO2 (35-45) mmHg ABG pO2 (83-108) mmHg ABG Total CO2 (19-24) mmol/L ABG O2 Saturation (94-97) % Creatinine 0.62 L (0.66-1.25) mg/dL Glucose 118 H (74-99) mg/dL POC Glucose (mg/dL) 119 H (75-99) mg/dL Total Protein 5.7 L (6.3-8.2) g/dL Albumin 3.4 L (3.5-5.0) g/dL Crossmatch 11/19/18 11/19/18 11/19/18 Range/Units 05:30 07:23 09:00 WBC (3.8-10.6) k/uL RBC (4.30-5.90) m/uL Hgb (13.0-17.5) gm/dL Hct (39.0-53.0) % Neutrophils # (1.3-7.7) k/uL Lymphocytes # (1.0-4.8) k/uL ABG pH (7.35-7.45) ABG pCO2 (35-45) mmHg ABG pO2 (83-108) mmHg ABG Total CO2 (19-24) mmol/L ABG O2 Saturation (94-97) % Creatinine (0.66-1.25) mg/dL Glucose (74-99) mg/dL POC Glucose (mg/dL) 121 H 119 H 139 H (75-99) mg/dL Total Protein (6.3-8.2) g/dL Albumin (3.5-5.0) g/dL Crossmatch 11/19/18 11/19/18 Range/Units 11:47 13:10 WBC (3.8-10.6) k/uL RBC (4.30-5.90) m/uL Hgb (13.0-17.5) gm/dL Hct (39.0-53.0) % Neutrophils # (1.3-7.7) k/uL Lymphocytes # (1.0-4.8) k/uL ABG pH (7.35-7.45) ABG pCO2 (35-45) mmHg ABG pO2 (83-108) mmHg ABG Total CO2 (19-24) mmol/L ABG O2 Saturation (94-97) % Creatinine (0.66-1.25) mg/dL Glucose (74-99) mg/dL POC Glucose (mg/dL) 127 H 165 H (75-99) mg/dL Total Protein (6.3-8.2) g/dL Albumin (3.5-5.0) g/dL Crossmatch Microbiology - Last 24 Hours (Table) 11/17/18 16:30 Nasal Screen MRSA/MSSA - Final Nasal Swab 11/17/18 19:30 Urine Culture - Final Urine,Voided - Imaging and Cardiology Chest x-ray: report reviewed, image reviewed Assessment and Plan (1) GERD (gastroesophageal reflux disease) Current Visit: Yes Status: Acute Code(s): K21.9 - GASTRO-ESOPHAGEAL REFLUX DISEASE WITHOUT ESOPHAGITIS SNOMED Code(s): 704409319 (2) Peripheral vascular disease Current Visit: Yes Status: Acute Code(s): I73.9 - PERIPHERAL VASCULAR DISEASE, UNSPECIFIED SNOMED Code(s): 256549814 (3) Abnormal ankle brachial index (NAA LUISA) Current Visit: Yes Status: Acute Code(s): R68.89 - OTHER GENERAL SYMPTOMS AND SIGNS SNOMED Code(s): 109973684 (4) Family history of premature coronary artery disease Current Visit: Yes Status: Acute Code(s): Z82.49 - FAMILY HX OF ISCHEM HEART DIS AND OTH DIS OF THE CIRC SYS SNOMED Code(s): 072649347 (5) Non-STEMI (non-ST elevated myocardial infarction) Current Visit: Yes Status: Acute Code(s): I21.4 - NON-ST ELEVATION (NSTEMI) MYOCARDIAL INFARCTION SNOMED Code(s): 83821394 Plan: 1. Continue aspirin, statin, Plavix, beta gonzalo. Will increase metoprolol tartrate 25 mg by mouth twice a day. 2. Wean O2 as tolerated. Encourage incentive spirometry 10 times every hour while awake. 3. Increase activity, ambulate as tolerated. PT/OT/cardiac rehab consulted. 4. Bronchodilators per pulmonology management. 5. Will monitor daily labs, chest x-rays. Electrolyte replacement per protocol. 6. Pain controlled current medication regimen. Toradol added. 7. GI prophylaxis with Protonix, DVT prophylaxis with subcu heparin and SCDs. 8. Insulin management per primary care service. 9. DC [place]. Cannot [place] to continue CVP monitoring. 10. Lasix 20 mg IV push 1 now. Discontinue Stahl catheter today. 11. More recommendations to follow based on patient's clinical course Time with Patient: Greater than 30
[2018-11-19] MEDS ORDERED: HYDROcodone/APAP 5-325MG 1 EACH TAB PO PRN ×2 (14:00)
[2018-11-19 14:12] LABS: Glucose,Whole Blood 120 mg/dL (75-99)
[2018-11-19 15:03] VITALS: BMI 29.5
[2018-11-19 16:34] LABS: Glucose,Whole Blood 66 mg/dL (75-99)
[2018-11-19 16:52] LABS: Glucose,Whole Blood 125 mg/dL (75-99)
[2018-11-19 18:22] LABS: Glucose,Whole Blood 142 mg/dL (75-99)
[2018-11-19] MEDS: SENNOSIDES-DOCUSATE SODIUM 1 EACH TAB PO SCH (20:53)
[2018-11-19] MEDS: INSULIN ASPART 100 UNIT/ML 1 ML 10 ML VIAL SQ SCH (20:53)
[2018-11-19 21:11] LABS: Glucose,Whole Blood 114 mg/dL (75-99)
[2018-11-20] MEDS: KETOROLAC 30 MG/ML 1 ML VIAL IVP SCH ×3 (00:52→16:20)
[2018-11-20] MEDS: HEPARIN SODIUM,PORCINE 5,000 UNIT/ML 1 ML VIAL SQ SCH ×4 (00:52→23:59)
[2018-11-20 01:56] LABS: Glucose,Whole Blood 122 mg/dL (75-99)
[2018-11-20] MEDS: INSULIN ASPART 100 UNIT/ML 1 ML 10 ML VIAL SQ SCH ×5 (02:20→20:57)
[2018-11-20] MEDS: ACETAMINOPHEN IV (For NPO) 1,000 MG in EMPTY BAG 1 BAG IVPB SCH ×4 (02:22→23:49)
[2018-11-20 05:01] LABS: Basophils % (A) 0 %; Eosinophils # (A) 0.1 k/uL (0-0.7); Eosinophils % (A) 1 %; HCT 33.8 % (39.0-53.0); HGB 11.5 gm/dL (13.0-17.5); Lymphocytes # (A) 2.2 k/uL (1.0-4.8); Lymphocytes % (A) 17 %; MCH 30.5 pg (25.0-35.0); MCHC 33.9 g/dL (31.0-37.0); MCV 89.9 fL (80.0-100.0); Mean Platelet Volume 6.2; Monocytes # (A) 0.5 k/uL (0-1.0); Monocytes % (A) 3 %; Neutrophils % (A) 77 %; Platelet Count 255 k/uL (150-450); RBC 3.76 m/uL (4.30-5.90); RDW 12.7 % (11.5-15.5); WBC 13.1 k/uL (3.8-10.6)
[2018-11-20 05:08] LABS: Prothrombin Time 10.9 sec (9.0-12.0)
[2018-11-20 05:12] LABS: Ionized Calcium 4.9 mg/dL (4.5-5.3)
[2018-11-20 05:26] LABS: ALT 36 U/L (21-72); AST 34 U/L (17-59); Albumin 3.4 g/dL (3.5-5.0); Alkaline Phosphatase 57 U/L (38-126); Anion Gap 6 mmol/L; Blood Urea Nitrogen 12 mg/dL (9-20); Carbon Dioxide 25 mmol/L (22-30); Chloride 106 mmol/L (98-107); Glucose 116 mg/dL (74-99); Magnesium 1.8 mg/dL (1.6-2.3); Potassium 4.7 mmol/L (3.5-5.1); Sodium 137 mmol/L (137-145); Total Bilirubin 1.1 mg/dL (0.2-1.3); Total Protein 5.6 g/dL (6.3-8.2)
[2018-11-20 06:53] LABS: Glucose,Whole Blood 122 mg/dL (75-99)
[2018-11-20] MEDS: IPRATROPIUM-ALBUTEROL 3 ML NEB INHALATION SCH ×4 (07:20→19:49)
--- NOTE | 2018-11-20 07:31 | XR ---
EXAMINATION TYPE: XR chest 1V portable DATE OF EXAM: 11/20/2018 COMPARISON: Prior chest x-ray 11/19/2018 HISTORY: Postop cardiac surgery TECHNIQUE: Single frontal view of the chest is obtained. FINDINGS: Right jugular central venous sheath remains in place, coaxial [place] catheter has been removed. Left chest tube and median sternal drain are in place. Patient is post median sternotomy and atrial appendage clipping. No sizable pneumothorax or pleural effusion. Interstitium remains increas ed. Pleural parenchymal changes are similar. IMPRESSION: Similar findings, correlate for possible volume overload, pulmonary venous hypertension and interstitial edema.
[2018-11-20] MEDS: ATORVASTATIN 40 MG TAB PO SCH (08:05)
[2018-11-20] MEDS: ASPIRIN 325 MG TAB PO SCH (08:05)
[2018-11-20] MEDS: CLOPIDOGREL 75 MG TAB PO SCH (08:05)
[2018-11-20] MEDS ORDERED: FUROSEMIDE 10 MG/ML 4 ML VIAL IV STA (08:06)
[2018-11-20] MEDS: PANTOPRAZOLE 40 MG TABLET PO SCH (08:06)
[2018-11-20] MEDS: MAGNESIUM SULFATE-D5W PMX 1 GM in DEXTROSE/WATER 1 100ML.BAG IVPB SCH ×2 (08:14→10:00)
--- NOTE | 2018-11-20 08:40 | P.PN ---
Subjective Progress Note Date: 11/20/18 Principal diagnosis: Acute anterior myocardial infarction this admission, 2 vessel coronary artery disease, gastroesophageal reflux disease, family history of early onset coronary artery disease with his mother having cardiac stents placed in her early 50s, peripheral vascular disease with his ANA LUISA to his left leg 0.68, chronic neck pain from herniated disks and chronic tobacco dependence. POD #2 urgent coronary artery bypass grafting 2 with left internal mammary artery to left anterior descending coronary artery, a reverse greater saphenous vein graft off the aorta to the diagonal coronary artery with left lower extremity greater saphenous vein harvesting endoscopically and clip ligation of the left atrial appendage with a #35 mm Atriclip an intraoperative transesophageal echocardiogram. The patient is sitting up to the bedside chair. He is in no acute distress. He is complaining of pain rating his pain to 10 out of 10 to his chest tube insertion sites. He denies any complaints of shortness of breath, remains on 4 L nasal cannula with his oxygen saturations 93%. He is achieving 500 - 750 mL with much encouragement on his incentive spirometry. He is currently hemodynamically stable and is on no inotropes or pressors at this time. He reports he ambulated with minimal assistance in the intensive care unit hallway yesterday 2. Objective - Vital Signs Vital signs: Vital Signs Temp 98.7 F 11/20/18 04:00 Pulse 96 11/20/18 07:36 Resp 21 11/20/18 07:00 BP 112/70 11/20/18 07:00 Pulse Ox 92 L 11/20/18 07:22 Intake & Output 11/19/18 11/20/18 11/20/18 18:59 06:59 18:59 Intake Total 1310.866 324.967 26 Output Total 1715 870 85 Balance -404.134 -545.033 -59 Weight 85.4 kg 83.2 kg Intake: IV 501 322 26 CI/CO 20 Lactated Ringers 1,000 ml 400 250 20 @ 20 mls/hr IV .Q24H [facility] Rx#:[id number] pressure bag 81 72 6 Intake, IV Titration 9.866 2.967 Amount Insulin Regular 100 unit 9.866 2.967 In Sodium Chloride 0.9% 100 ml @ Per Protocol IV .Q0M S[facility] Rx#:[id number] Oral 800 Output: Chest Tube Drainage 300 150 30 Chest Tube Left Pleural/ 300 150 30 Mediastinal Urine 1415 720 55 Other: Voiding Method Indwelling Catheter Indwelling Catheter Indwelling Catheter ABP, PAP, CO, CI - Last Documented Arterial Blood Pressure 124/62 Pulmonary Artery Pressure 29/17 Cardiac Output 7.6 Cardiac Index 4.0 - Constitutional General appearance: Present: cooperative, no acute distress, obese - Respiratory Details: Lung sounds are essentially clear to his bilateral upper lobes, diminished his bilateral bases. Respirations are symmetrical and nonlabored. Oxygen saturation are 93% on 4 L nasal cannula. He is achieving 500-750 mL on his incentive spirometry. Left pleural and mediastinal chest tubes in place to low continuous wall suction -20 cm H2O. No air leak is present. Draining thin serosanguineous drainage. 400 mL output in the last 8 hours, 110 mL output in the last 24 hours. - Cardiovascular Details: Regular rhythm and rate. S1 and S2 present, negative for S3, gallop or murmur. Sternum is stable. Bedside telemetry showing normal sinus rhythm heart rate 88. Heart hugger is in place and he is demonstrating appropriate use. Ventricular epicardial pacemaker wires in place and grounded. Knee-high STERLING hose and sequential compression devices in place to his bilateral lower extremities. - Gastrointestinal Gastrointestinal Comment(s): Abdomen is soft, nontender and nondistended. Active bowel sounds to all 4 abdominal quadrants. Tolerating oral intake. Passing flatus. - Genitourinary Genitourinary Comment(s): Stahl catheter for accurate I&O. Draining clear yellow urine. 420 mL output in the last 8 hours. - Integumentary Integumentary Comment(s): Skin is warm and dry. No clubbing or cyanosis is present. Midline sternal incision is clean, dry and approximated. No drainage or redness present. Gauze dressing clean, dry and intact. Left lower extremity EVH site clean, dry and approximated. No drainage or redness present. - Neurologic Neurologic: Present: CNII-XII intact - Musculoskeletal Musculoskeletal: Present: gait normal, strength equal bilaterally - Psychiatric Psychiatric: Present: A&O x's 3, appropriate affect, intact judgment & insight - Allied health notes Allied health notes reviewed: nursing - Labs CBC & Chem 7: 11/20/18 05:00 11/20/18 04:47 Labs: Abnormal Lab Results - Last 24 Hours (Table) 11/19/18 11/19/18 11/19/18 Range/Units 09:00 11:47 13:10 WBC (3.8-10.6) k/uL RBC (4.30-5.90) m/uL Hgb (13.0-17.5) gm/dL Hct (39.0-53.0) % Neutrophils # (1.3-7.7) k/uL Creatinine (0.66-1.25) mg/dL Glucose (74-99) mg/dL POC Glucose (mg/dL) 139 H 127 H 165 H (75-99) mg/dL Total Protein (6.3-8.2) g/dL Albumin (3.5-5.0) g/dL 11/19/18 11/19/18 11/19/18 Range/Units 14:10 16:31 16:48 WBC (3.8-10.6) k/uL RBC (4.30-5.90) m/uL Hgb (13.0-17.5) gm/dL Hct (39.0-53.0) % Neutrophils # (1.3-7.7) k/uL Creatinine (0.66-1.25) mg/dL Glucose (74-99) mg/dL POC Glucose (mg/dL) 120 H 66 L 125 H (75-99) mg/dL Total Protein (6.3-8.2) g/dL Albumin (3.5-5.0) g/dL 11/19/18 11/19/18 11/20/18 Range/Units 18:20 20:45 01:53 WBC (3.8-10.6) k/uL RBC (4.30-5.90) m/uL Hgb (13.0-17.5) gm/dL Hct (39.0-53.0) % Neutrophils # (1.3-7.7) k/uL Creatinine (0.66-1.25) mg/dL Glucose (74-99) mg/dL POC Glucose (mg/dL) 142 H 114 H 122 H (75-99) mg/dL Total Protein (6.3-8.2) g/dL Albumin (3.5-5.0) g/dL 11/20/18 11/20/18 11/20/18 Range/Units 04:47 05:00 06:50 WBC 13.1 H (3.8-10.6) k/uL RBC 3.76 L (4.30-5.90) m/uL Hgb 11.5 L (13.0-17.5) gm/dL Hct 33.8 L (39.0-53.0) % Neutrophils # 10.0 H (1.3-7.7) k/uL Creatinine 0.65 L (0.66-1.25) mg/dL Glucose 116 H (74-99) mg/dL POC Glucose (mg/dL) 122 H (75-99) mg/dL Total Protein 5.6 L (6.3-8.2) g/dL Albumin 3.4 L (3.5-5.0) g/dL - Imaging and Cardiology Chest x-ray: report reviewed, image reviewed Assessment and Plan (1) GERD (gastroesophageal reflux disease) Current Visit: Yes Status: Acute Code(s): K21.9 - GASTRO-ESOPHAGEAL REFLUX DISEASE WITHOUT ESOPHAGITIS SNOMED Code(s): 883765013 (2) Peripheral vascular disease Current Visit: Yes Status: Acute Code(s): I73.9 - PERIPHERAL VASCULAR DISEASE, UNSPECIFIED SNOMED Code(s): 562299796 (3) Abnormal ankle brachial index (ANA LUISA) Current Visit: Yes Status: Acute Code(s): R68.89 - OTHER GENERAL SYMPTOMS AND SIGNS SNOMED Code(s): 640959870 (4) Family history of premature coronary artery disease Current Visit: Yes Status: Acute Code(s): Z82.49 - FAMILY HX OF ISCHEM HEART DIS AND OTH DIS OF THE CIRC SYS SNOMED Code(s): 650099580 (5) Non-STEMI (non-ST elevated myocardial infarction) Current Visit: Yes Status: Acute Code(s): I21.4 - NON-ST ELEVATION (NSTEMI) MYOCARDIAL INFARCTION SNOMED Code(s): 76424923 Plan: 1. Continue aspirin, statin, Plavix and beta gonzalo. Will increase metoprolol tartrate 25 mg by mouth 3 times a day. 2. Wean O2 as tolerated. Encourage incentive spirometry 10 times every hour while awake. 3. Increase activity, ambulate as tolerated. PT/OT/cardiac rehab following. 4. Bronchodilators per pulmonology management. 5. Will monitor daily labs, chest x-rays. Electrolyte replacement per protocol. 6. Pain controlled current medication regimen. Continue Toradol. 7. GI prophylaxis with Protonix, DVT prophylaxis with subcu heparin and SCDs. 8. Insulin management per primary care service. 9. Discontinue right IJ Cordis, left radial arterial line and Stahl catheter. 10. Lasix 40 mg IV push 1 now. 11. Transfer to [address] [place] [address] cardiac stepdown unit today. 12. Remove left and mediastinal chest tubes today. Left pleural and mediastinal chest tubes removed without incident. 13. Reinforced the importance of smoking cessation. 14. Ventricular epicardial pacemaker wires removed without incident. Bed rest for 1 hour post pacemaker wire removal. 15. More recommendations to follow based on patient's clinical course. Time with Patient: Greater than 30
--- NOTE | 2018-11-20 09:07 | P.PN ---
Subjective Progress Note Date: 11/20/18 This is a 53-year-old gentlemanwho was admitted to the hospital with unstable angina/non-STEMI. Cardiac catheterization revealed significant disease involving the proximal LAD. Patient underwent aortocoronary bypass surgery. Patient is doing well. He is sitting up in the chair, extubated. Patient is in sinus rhythm. Denies any significant chest pain. His vital signs are stable. Patient has a Conway-Jane and also chest tubes. Overall patient clinical status seemed to be stable. Patient will continue current medical therapy. 11/20/2018: This 52-year-old gentleman is status post two-vessel bypass surgery with the PLASCENCIA graft to the LAD and vein graft to the diagonal branch. Patient also had ligation of the left atrial appendage. Patient is doing well. Patient 's chest tubes were removed today. Patient explains some pain before the removal but is feeling much better now. No complaints of shortness of breath. Patient is in sinus rhythm. Blood pressure is stable. His lab work shows a hemoglobin 11.5. His electrolytes are normal. Creatinine is 0.65. Lungs show diminished breath sounds at bases. Patient will be transferred related to telemetry unit Objective - Vital Signs Vital signs: Vital Signs Temp 98.7 F 11/20/18 04:00 Pulse 96 11/20/18 07:36 Resp 21 11/20/18 07:00 BP 112/70 11/20/18 07:00 Pulse Ox 92 L 11/20/18 07:22 Intake & Output 11/19/18 11/20/18 11/20/18 18:59 06:59 18:59 Intake Total 1310.866 324.967 26 Output Total 1715 870 85 Balance -404.134 -545.033 -59 Weight 85.4 kg 83.2 kg Intake: IV 501 322 26 CI/CO 20 Lactated Ringers 1,000 ml 400 250 20 @ 20 mls/hr IV .Q24H [facility] Rx#:[id number] pressure bag 81 72 6 Intake, IV Titration 9.866 2.967 Amount Insulin Regular 100 unit 9.866 2.967 In Sodium Chloride 0.9% 100 ml @ Per Protocol IV .Q0M [facility] Rx#:[id number] Oral 800 Output: Chest Tube Drainage 300 150 30 Chest Tube Left Pleural/ 300 150 30 Mediastinal Urine 1415 720 55 Other: Voiding Method Indwelling Catheter Indwelling Catheter Indwelling Catheter ABP, PAP, CO, CI - Last Documented Arterial Blood Pressure 124/62 Pulmonary Artery Pressure 29/17 Cardiac Output 7.6 Cardiac Index 4.0 - Exam GENERAL EXAM: Patient is alert and oriented and doesn't appear to be in any acute distress HEENT: Normocephalic. Normal reaction of pupils, equal size, normal range of extraocular motion. No erythema or exudates in the throat. NECK: No masses, no nuchal rigidity. CHEST: postsurgical LUNGS: diminished breath sounds at bases HEART: [S1 and S2 normal ABDOMEN: No hepatosplenomegaly, normal bowel sounds, no guarding or rigidity. SKIN: No rashes CENTRAL NERVOUS SYSTEM: No focal deficits. EXTREMITIES: [No cyanosis, clubbing or edema.] - Labs CBC & Chem 7: 11/20/18 05:00 11/20/18 04:47 Labs: Abnormal Lab Results - Last 24 Hours (Table) 11/19/18 11/19/18 11/19/18 Range/Units 09:00 11:47 13:10 WBC (3.8-10.6) k/uL RBC (4.30-5.90) m/uL Hgb (13.0-17.5) gm/dL Hct (39.0-53.0) % Neutrophils # (1.3-7.7) k/uL Creatinine (0.66-1.25) mg/dL Glucose (74-99) mg/dL POC Glucose (mg/dL) 139 H 127 H 165 H (75-99) mg/dL Total Protein (6.3-8.2) g/dL Albumin (3.5-5.0) g/dL 11/19/18 11/19/18 11/19/18 Range/Units 14:10 16:31 16:48 WBC (3.8-10.6) k/uL RBC (4.30-5.90) m/uL Hgb (13.0-17.5) gm/dL Hct (39.0-53.0) % Neutrophils # (1.3-7.7) k/uL Creatinine (0.66-1.25) mg/dL Glucose (74-99) mg/dL POC Glucose (mg/dL) 120 H 66 L 125 H (75-99) mg/dL Total Protein (6.3-8.2) g/dL Albumin (3.5-5.0) g/dL 11/19/18 11/19/18 11/20/18 Range/Units 18:20 20:45 01:53 WBC (3.8-10.6) k/uL RBC (4.30-5.90) m/uL Hgb (13.0-17.5) gm/dL Hct (39.0-53.0) % Neutrophils # (1.3-7.7) k/uL Creatinine (0.66-1.25) mg/dL Glucose (74-99) mg/dL POC Glucose (mg/dL) 142 H 114 H 122 H (75-99) mg/dL Total Protein (6.3-8.2) g/dL Albumin (3.5-5.0) g/dL 11/20/18 11/20/18 11/20/18 Range/Units 04:47 05:00 06:50 WBC 13.1 H (3.8-10.6) k/uL RBC 3.76 L (4.30-5.90) m/uL Hgb 11.5 L (13.0-17.5) gm/dL Hct 33.8 L (39.0-53.0) % Neutrophils # 10.0 H (1.3-7.7) k/uL Creatinine 0.65 L (0.66-1.25) mg/dL Glucose 116 H (74-99) mg/dL POC Glucose (mg/dL) 122 H (75-99) mg/dL Total Protein 5.6 L (6.3-8.2) g/dL Albumin 3.4 L (3.5-5.0) g/dL Assessment and Plan (1) S/P CABG (coronary artery bypass graft) Current Visit: Yes Status: Acute Code(s): Z95.1 - PRESENCE OF AORTOCORONARY BYPASS GRAFT SNOMED Code(s): 480501349 (2) Non-STEMI (non-ST elevated myocardial infarction) Current Visit: Yes Status: Acute Code(s): I21.4 - NON-ST ELEVATION (NSTEMI) MYOCARDIAL INFARCTION SNOMED Code(s): 25097845 (3) Peripheral vascular disease Current Visit: Yes Status: Acute Code(s): I73.9 - PERIPHERAL VASCULAR DISEASE, UNSPECIFIED SNOMED Code(s): 770179954 Plan: Patient is doing better and clinically stable. Patient be transferred to telemetry unit. Patient will continue current medical therapy. Increase activity. Possible discharge home in 24-48 hours
--- NOTE | 2018-11-20 09:37 | P.PN ---
Subjective Progress Note Date: 11/20/18 Principal diagnosis: Coronary artery disease status post coronary artery bypass grafting. This is a very pleasant 53-year-old gentleman who follows with Dr. Varner is his primary care physician. He has a history of gastroesophageal reflux disease , chronic and ongoing tobacco dependence. No home medications. No strong family history of coronary artery disease. He presented here to the emergency room yesterday with complaints of chest pain. It had been intermittent over the past 2 weeks but yesterday he had at 3 different times and came in for that reason. He has had some achiness in his left arm and was diaphoretic. EKG revealed sinus rhythm with very subtle ST and T wave abnormalities. Troponin 0.169, 0.403, 0.555. He was initiated on a heparin drip and nitroglycerin paste. He had undergone cardiac catheterization today which which revealed significant coronary artery disease including 75% LAD lesion with intrinsic dissection. Cardiothoracic consultation is pending. He is seen today in consultation in the intensive care unit. He is awake and alert in no acute distress. He is maintaining good O2 saturations in the upper 90s on room air. He's been afebrile. Hemodynamically stable. No chest pain currently. No dizziness or lightheadedness. No shortness of breath cough or congestion. The patient is seen again today 11/20/2018 in follow-up in the intensive care unit. He is awake and alert in no acute distress. He is now status post urgent coronary artery bypass grafting 2 with a PLASCENCIA to the LAD and a reverse saphenous vein graft to the diagonal artery. This is postoperative day #2. He is currently sitting up in bed. He denies any worsening shortness of breath, cough or congestion. He is working well with the incentive spirometer. The plan is for mediastinal chest tubes to be removed today. Chest x-ray does reveal some interstitial edema. White count 13.1. Hemoglobin 11.5. Creatinine 0.65. His 0.9 at 20 ML's per hour. Oxygen at 4 L per nasal cannula. Objective - Vital Signs Vital signs: Vital Signs Temp 98.7 F 11/20/18 04:00 Pulse 96 11/20/18 07:36 Resp 21 11/20/18 07:00 BP 112/70 11/20/18 07:00 Pulse Ox 92 L 11/20/18 07:22 Intake & Output 11/19/18 11/20/18 11/20/18 18:59 06:59 18:59 Intake Total 1310.866 324.967 26 Output Total 1715 870 85 Balance -404.134 -545.033 -59 Weight 85.4 kg 83.2 kg Intake: IV 501 322 26 CI/CO 20 Lactated Ringers 1,000 ml 400 250 20 @ 20 mls/hr IV .Q24H [facility] Rx#:[id number] pressure bag 81 72 6 Intake, IV Titration 9.866 2.967 Amount Insulin Regular 100 unit 9.866 2.967 In Sodium Chloride 0.9% 100 ml @ Per Protocol IV .Q0M [facility] Rx#:[id number] Oral 800 Output: Chest Tube Drainage 300 150 30 Chest Tube Left Pleural/ 300 150 30 Mediastinal Urine 1415 720 55 Other: Voiding Method Indwelling Catheter Indwelling Catheter Indwelling Catheter ABP, PAP, CO, CI - Last Documented Arterial Blood Pressure 124/62 Pulmonary Artery Pressure 29/17 Cardiac Output 7.6 Cardiac Index 4.0 - Exam - Constitutional General appearance: average body habitus, no acute distress. On oxygen at 4 L/m per nasal cannula. - EENT Eyes: EOMI, PERRLA ENT: hearing grossly normal Ears: bilateral: normal - Neck Neck: normal ROM Carotids: bilateral: upstroke normal Thyroid: bilateral: normal size - Respiratory Respiratory: bilateral: Crackles the posterior bases. Left pleural and mediastinal chest tubes in place. - Cardiovascular Rhythm: regular Heart sounds: normal: S1, S2 - Gastrointestinal General gastrointestinal: normal bowel sounds - Integumentary Integumentary: normal turgor - Neurologic Neurologic: CNII-XII intact - Musculoskeletal Musculoskeletal: gait normal - Psychiatric Psychiatric: A&O x's 3, appropriate affect, intact judgment & insight - Labs CBC & Chem 7: 11/20/18 05:00 11/20/18 04:47 Labs: Abnormal Lab Results - Last 24 Hours (Table) 11/19/18 11/19/18 11/19/18 Range/Units 11:47 13:10 14:10 WBC (3.8-10.6) k/uL RBC (4.30-5.90) m/uL Hgb (13.0-17.5) gm/dL Hct (39.0-53.0) % Neutrophils # (1.3-7.7) k/uL Creatinine (0.66-1.25) mg/dL Glucose (74-99) mg/dL POC Glucose (mg/dL) 127 H 165 H 120 H (75-99) mg/dL Total Protein (6.3-8.2) g/dL Albumin (3.5-5.0) g/dL 11/19/18 11/19/18 11/19/18 Range/Units 16:31 16:48 18:20 WBC (3.8-10.6) k/uL RBC (4.30-5.90) m/uL Hgb (13.0-17.5) gm/dL Hct (39.0-53.0) % Neutrophils # (1.3-7.7) k/uL Creatinine (0.66-1.25) mg/dL Glucose (74-99) mg/dL POC Glucose (mg/dL) 66 L 125 H 142 H (75-99) mg/dL Total Protein (6.3-8.2) g/dL Albumin (3.5-5.0) g/dL 11/19/18 11/20/18 11/20/18 Range/Units 20:45 01:53 04:47 WBC (3.8-10.6) k/uL RBC (4.30-5.90) m/uL Hgb (13.0-17.5) gm/dL Hct (39.0-53.0) % Neutrophils # (1.3-7.7) k/uL Creatinine 0.65 L (0.66-1.25) mg/dL Glucose 116 H (74-99) mg/dL POC Glucose (mg/dL) 114 H 122 H (75-99) mg/dL Total Protein 5.6 L (6.3-8.2) g/dL Albumin 3.4 L (3.5-5.0) g/dL 11/20/18 11/20/18 Range/Units 05:00 06:50 WBC 13.1 H (3.8-10.6) k/uL RBC 3.76 L (4.30-5.90) m/uL Hgb 11.5 L (13.0-17.5) gm/dL Hct 33.8 L (39.0-53.0) % Neutrophils # 10.0 H (1.3-7.7) k/uL Creatinine (0.66-1.25) mg/dL Glucose (74-99) mg/dL POC Glucose (mg/dL) 122 H (75-99) mg/dL Total Protein (6.3-8.2) g/dL Albumin (3.5-5.0) g/dL Assessment and Plan Assessment: Impression: #1 Chest pain in a patient found to have significant coronary artery disease including 75% LAD lesion with intrinsic dissection. Status post urgent coronary artery bypass grafting utilizing a PLASCENCIA to the LAD and a reverse saphenous vein graft to the diagonal artery. Postoperative day #2. #2 Chronic tobacco dependence of 40 years. #3 Gastroesophageal reflux disease. Plan: The patient was seen and evaluated by Dr. Lopez. Chest x-ray and labs reviewed. The patient is doing well from the pulmonary and critical care standpoint. Chest tubes to be removed today. Increase his activity as tolerated. Again encouraged increased use of the incentive spirometer and cough and deep breathing exercises. He is again educated regarding the importance of complete smoking cessation. A NicoDerm patch is in place. Will continue to monitor him closely here in the intensive care unit. We will continue to follow and make further recommendations based on his clinical status. I, the cosigning physician, performed a history & physical examination of the patient. Lungs sounds crackles in the bilateral posterior bases. Maintaining good O2 saturations in the 90s on 4 L/m per nasal cannula. I discussed the assessment and plan of care with my nurse practitioner, Talia Ferrer. I attest to the above consultation as dictated by her. Time with Patient: Greater than 30
[2018-11-20] MEDS: METOPROLOL TARTRATE 25 MG TAB PO SCH ×3 (10:00→21:00)
[2018-11-20 12:04] LABS: Glucose,Whole Blood 134 mg/dL (75-99)
--- NOTE | 2018-11-20 13:11 | P.PN ---
Subjective Patient is admitted secondary to acute myocardial infarction found to have left main disease successfully underwent the coronary artery bypass grafting 2 with the left internal mammary artery and left anterior descending artery reverse saphenous vein graft. Patient is presently intubated posterior CABG presently on Cardizem 5 g nitro drip at 5 g propofol 10 g and weaning off patient is waking up at this time plan is to extubate him today. 11/19/2018 Patient is extubated clinically doing well patient can use to have a mediastinal chest tube and a left pleural chest tube having some pain when he takes a deep breath otherwise clinically doing well can use to be empty mini pain drip and amiodarone drip. 11/20/2018 Patient will be transferred to [facility] today and patient's a mediastinal chest tube is out and left pleural chest tube is out. Doing much better Constitutional: Denied any fatigue denied any fever. Cardio vascular: denied any chest pain, palpitations Gastrointestinal denied any nausea vomiting Pulmonary: Denied any shortness of breath cough Neurologic denied any new focal deficits All inpatient medications were reviewed and appropriate changes in these medications as dictated in the interval history and assessment and plan. Objective - Vital Signs Vital signs: Vital Signs Temp 98.2 F 11/20/18 08:00 Pulse 92 11/20/18 11:45 Resp 16 11/20/18 11:00 BP 108/75 11/20/18 11:00 Pulse Ox 95 11/20/18 11:00 Intake & Output 11/19/18 11/20/18 11/20/18 18:59 06:59 18:59 Intake Total 1310.866 324.967 212 Output Total 1715 870 140 Balance -404.134 -545.033 72 Weight 85.4 kg 83.2 kg Intake: IV 501 322 112 CI/CO 20 Lactated Ringers 1,000 ml 400 250 100 @ 20 mls/hr IV .Q24H SMILEY Rx#:[id number] pressure bag 81 72 12 Intake, IV Titration 9.866 2.967 100 Amount Insulin Regular 100 unit 9.866 2.967 In Sodium Chloride 0.9% 100 ml @ Per Protocol IV .Q0M SMILEY Rx#:[id number] Magnesium Sulfate-D5w Pmx 100 1 gm In Dextrose/Water 1 100ml.bag @ 100 mls/hr IVPB Q1H SMILEY Rx#: [id number] Oral 800 Output: Chest Tube Drainage 300 150 30 Chest Tube Left Pleural/ 300 150 30 Mediastinal Urine 1415 720 110 Other: Voiding Method Indwelling Catheter Indwelling Catheter Indwelling Catheter ABP, PAP, CO, CI - Last Documented Arterial Blood Pressure 119/67 Pulmonary Artery Pressure 29/17 Cardiac Output 7.6 Cardiac Index 4.0 - Exam PHYSICAL EXAMINATION: GENERAL: Alert oriented 3 not in respiratory distress HEENT: Pupils are round and equally reacting to light. EOMI. No scleral icterus. No conjunctival pallor. Normocephalic, atraumatic. No pharyngeal erythema. No thyromegaly. CARDIOVASCULAR: S1 and S2 present. No murmurs, rubs, or gallops. PULMONARY: Chest is clear to auscultation, no wheezing or crackles. She and has left pleuraland mediastinal chest tubes ABDOMEN: Soft, nontender, nondistended, normoactive bowel sounds. No palpable organomegaly. MUSCULOSKELETAL: No joint swelling or deformity. EXTREMITIES: No cyanosis, clubbing, or pedal edema. NEUROLOGICAL: Gross neurological examination did not reveal any focal deficits. SKIN: No rashes. - Labs CBC & Chem 7: 11/20/18 05:00 11/20/18 04:47 Labs: Abnormal Lab Results - Last 24 Hours (Table) 11/19/18 11/19/18 11/19/18 Range/Units 13:10 14:10 16:31 WBC (3.8-10.6) k/uL RBC (4.30-5.90) m/uL Hgb (13.0-17.5) gm/dL Hct (39.0-53.0) % Neutrophils # (1.3-7.7) k/uL Creatinine (0.66-1.25) mg/dL Glucose (74-99) mg/dL POC Glucose (mg/dL) 165 H 120 H 66 L (75-99) mg/dL Total Protein (6.3-8.2) g/dL Albumin (3.5-5.0) g/dL 11/19/18 11/19/18 11/19/18 Range/Units 16:48 18:20 20:45 WBC (3.8-10.6) k/uL RBC (4.30-5.90) m/uL Hgb (13.0-17.5) gm/dL Hct (39.0-53.0) % Neutrophils # (1.3-7.7) k/uL Creatinine (0.66-1.25) mg/dL Glucose (74-99) mg/dL POC Glucose (mg/dL) 125 H 142 H 114 H (75-99) mg/dL Total Protein (6.3-8.2) g/dL Albumin (3.5-5.0) g/dL 11/20/18 11/20/18 11/20/18 Range/Units 01:53 04:47 05:00 WBC 13.1 H (3.8-10.6) k/uL RBC 3.76 L (4.30-5.90) m/uL Hgb 11.5 L (13.0-17.5) gm/dL Hct 33.8 L (39.0-53.0) % Neutrophils # 10.0 H (1.3-7.7) k/uL Creatinine 0.65 L (0.66-1.25) mg/dL Glucose 116 H (74-99) mg/dL POC Glucose (mg/dL) 122 H (75-99) mg/dL Total Protein 5.6 L (6.3-8.2) g/dL Albumin 3.4 L (3.5-5.0) g/dL 11/20/18 11/20/18 Range/Units 06:50 12:00 WBC (3.8-10.6) k/uL RBC (4.30-5.90) m/uL Hgb (13.0-17.5) gm/dL Hct (39.0-53.0) % Neutrophils # (1.3-7.7) k/uL Creatinine (0.66-1.25) mg/dL Glucose (74-99) mg/dL POC Glucose (mg/dL) 122 H 134 H (75-99) mg/dL Total Protein (6.3-8.2) g/dL Albumin (3.5-5.0) g/dL Assessment and Plan Plan: -Acute non-ST elevation myocardial infarction: Status post cardiac catheterization with left main disease with intrinsic dissection patient is status post CABG. she is status post extubation on clevidipine drip and amiodarone drip., Antiplatelet medications Plavix and aspirin Lipitor -Postoperative acute respiratory failure hypoxic post surgery was extubated within 6 hours -Gastroesophageal reflux disease -Nicotine abuse: Counseling was provided
[2018-11-20] MEDS: MUPIROCIN 2% OINT 22 GM TUBE NASAL SCH ×2 (16:18→23:59)
[2018-11-20] MEDS ORDERED: KETOROLAC 30 MG/ML 1 ML VIAL IVP PRN (16:59)
[2018-11-20 17:07] LABS: Glucose,Whole Blood 125 mg/dL (75-99)
[2018-11-20 20:46] LABS: Glucose,Whole Blood 125 mg/dL (75-99)
[2018-11-20] MEDS: SENNOSIDES-DOCUSATE SODIUM 1 EACH TAB PO SCH (20:59)
[2018-11-21 02:24] LABS: Glucose,Whole Blood 116 mg/dL (75-99)
[2018-11-21] MEDS: INSULIN ASPART 100 UNIT/ML 1 ML 10 ML VIAL SQ SCH ×2 (02:36→06:02)
[2018-11-21] MEDS: ACETAMINOPHEN IV (For NPO) 1,000 MG in EMPTY BAG 1 BAG IVPB SCH (03:23)
[2018-11-21 05:08] LABS: ALT 38 U/L (21-72); AST 32 U/L (17-59); Albumin 3.5 g/dL (3.5-5.0); Alkaline Phosphatase 80 U/L (38-126); Anion Gap 10 mmol/L; Blood Urea Nitrogen 14 mg/dL (9-20); Calcium 9.1 mg/dL (8.4-10.2); Carbon Dioxide 23 mmol/L (22-30); Chloride 104 mmol/L (98-107); Glucose 113 mg/dL (74-99); Magnesium 1.9 mg/dL (1.6-2.3); Potassium 4.2 mmol/L (3.5-5.1); Sodium 137 mmol/L (137-145); Total Bilirubin 0.9 mg/dL (0.2-1.3); Total Protein 5.8 g/dL (6.3-8.2)
[2018-11-21 05:43] LABS: Basophils % (A) 0 %; Eosinophils # (A) 0.1 k/uL (0-0.7); Eosinophils % (A) 1 %; HCT 34.2 % (39.0-53.0); HGB 11.2 gm/dL (13.0-17.5); Lymphocytes # (A) 2.1 k/uL (1.0-4.8); Lymphocytes % (A) 16 %; MCHC 32.9 g/dL (31.0-37.0); MCV 91.1 fL (80.0-100.0); Mean Platelet Volume 6.7; Monocytes # (A) 0.6 k/uL (0-1.0); Monocytes % (A) 5 %; Neutrophils % (A) 77 %; Platelet Count 302 k/uL (150-450); RBC 3.75 m/uL (4.30-5.90); RDW 12.7 % (11.5-15.5)
[2018-11-21 07:00] LABS: Glucose,Whole Blood 118 mg/dL (75-99)
[2018-11-21] MEDS ORDERED: ACETAMINOPHEN TAB 325 MG TAB PO PRN ×2 (07:26)
[2018-11-21] MEDS: IPRATROPIUM-ALBUTEROL 3 ML NEB INHALATION SCH ×2 (07:55→11:53)
[2018-11-21] MEDS ORDERED: FUROSEMIDE 10 MG/ML 4 ML VIAL IV STA (08:01)
[2018-11-21 08:07] VITALS: TEMP 98
--- NOTE | 2018-11-21 08:14 | XR ---
EXAMINATION TYPE: XR chest 2V DATE OF EXAM: 11/21/2018 COMPARISON: Prior chest x-ray 11/20/2018 HISTORY: Postop coronary artery bypass graft, abnormal chest x-ray TECHNIQUE: Frontal and lateral views of the chest are obtained. FINDINGS: Patient is post median sternotomy. Patient is rotated, there are overlying cardiac leads. Heart size is likely stable. There is persistent blunting of the costophrenic angles. Bandlike areas of increased attenuation are present at the lung bases. No evident pneumothorax. Right jugular centra l venous sheath has been removed. Patient shows atrial appendage clipping. Patient's median sternotom y drain is no longer seen. Prominent lung volume compatible with underlying COPD. IMPRESSION: No evident complication status post tube and line removal. There is some improvement in aeration, residual atelectatic changes, small effusions may be present.
[2018-11-21] MEDS: HEPARIN SODIUM,PORCINE 5,000 UNIT/ML 1 ML VIAL SQ SCH (08:37)
[2018-11-21] MEDS: ASPIRIN 325 MG TAB PO SCH (08:39)
[2018-11-21] MEDS: CLOPIDOGREL 75 MG TAB PO SCH (08:39)
[2018-11-21] MEDS: PANTOPRAZOLE 40 MG TABLET PO SCH (08:40)
[2018-11-21] MEDS: MAGNESIUM SULFATE-D5W PMX 1 GM in DEXTROSE/WATER 1 100ML.BAG IVPB SCH ×2 (08:40→09:57)
[2018-11-21] MEDS: ATORVASTATIN 40 MG TAB PO SCH (08:40)
[2018-11-21] MEDS: MUPIROCIN 2% OINT 22 GM TUBE NASAL SCH (08:59)
[2018-11-21] MEDS ORDERED: METOPROLOL TARTRATE 50 MG TAB PO SCH (09:00)
--- NOTE | 2018-11-21 09:06 | P.PN ---
Progress Note - Text Patient is doing well. Recovering from cardiac surgery. Afebrile 98F, pulse rate in the 90s, blood pressure 114/74 mmHg Reduced breath sounds bilaterally, mild but no rhonchi no crackles Heart sounds S1 and S2 are soft Abdomen soft No JVD Labs are reviewed white count 13,000, electrolytes normal renal function normal Impression Coronary artery disease, non-Q-wave myocardial infarction, significant proximal LAD disease status post bypass surgery Recovering well following PLASCENCIA graft to LAD and vein graft to diagonal branch and left atrial appendage appendectomy May go to telemetry today and continue cardiac medications
--- NOTE | 2018-11-21 09:38 | P.VSCSTY ---
Greater Saphenous Vein Mapping This is bilateral lower extremity greater saphenous vein mapping. Date of service 11/17/2018 Vein quality and ultrasound appearance no sign of intraluminal thrombus or wall changes. Vein size groin right 5.5 x 5.3 groin left 5.1 x 4.6 High thigh right 3.8 x 5.2 high thigh left 3.8 x 3.5 Mid thigh right 4.3 x 3.9 mid thigh left 3.3 x 4.0 Above-knee right 4.6 x 3.6 above- knee left 4.0 x 3.3 Below knee right 3.3 x 2.9 below-knee left 3.1 x 2.4 Mid calf right to 2.8 x 1.7 mid calf left 3.0 x 2.2 Ankle right 2.6 x 1.7 ankle left 2.4 x 1.8 Impression usable bilateral greater saphenous vein. Both lower legs look a bit small especially the ankle level..
--- NOTE | 2018-11-21 09:40 | P.ARTDOP ---
Arterial Doppler LOWER EXTREMITY ARTERIAL DOPPLER: DATE OF SERVICE: 11/17/2018 Reason for study: Preop CABG. Doppler waveforms: Multiphasic throughout on the right. Atypical throughout on the left. Pulse volume recording: []. Pressure gradients: Left leg Ankle-brachial indices: Greater than 1 on the right and 0.68 on the left. Toe pressures: [] on the right, [] on the left Impression: Normal right side. Moderate left iliofemoral disease. Clinical correlation recommended..
--- NOTE | 2018-11-21 11:34 | P.DS ---
Providers Date of admission: 11/16/18 15:37 Expected date of discharge: 11/21/18 Attending physician: Celestino Bautista Consults: 11/16/18 15:36 Consult Physician Urgent Consulting Provider: [facility] Consult Reason/Comments: non-STEMI Do you want consulting provider notified?: Already Contacted 11/17/18 10:51 Consult Physician Urgent Consulting Provider: Celestino Bautista Consult Reason/Comments: for CABG Do you want consulting provider notified?: Already Contacted 11/17/18 11:07 Consult Physician Routine Consulting Provider: oJel Lopez Consult Reason/Comments: ICU/pulmonary management Do you want consulting provider notified?: Already Contacted 11/17/18 11:15 Consult Physician Routine Consulting Provider: Davin Peguero Consult Reason/Comments: Medical Manganement Do you want consulting provider notified?: Yes Consult to Anesthesia Routine Consulting Provider: Anesthesia,Services Consult Reason/Comments: Cardiac Surgery Pre-Op Primary care physician: Trisha Varner - Discharge Diagnosis(es) (1) GERD (gastroesophageal reflux disease) Current Visit: Yes Status: Acute (2) Peripheral vascular disease Current Visit: Yes Status: Acute (3) Abnormal ankle brachial index (ANA LUISA) Current Visit: Yes Status: Acute (4) Family history of premature coronary artery disease Current Visit: Yes Status: Acute (5) Non-STEMI (non-ST elevated myocardial infarction) Current Visit: Yes Status: Acute Hospital Course: FINAL DIAGNOSIS: 1. Acute anterior myocardial infarction this admission 2. Double vessel coronary artery disease 3. Gastroesophageal reflux disease 4. Family history of early onset coronary artery disease with his mother having a cardiac stent placed in her early 50s 5. Peripheral vascular disease with his ANA LUISA to his left leg 0.68 6. Chronic neck pain from herniated disks 7. Chronic tobacco dependence PRINCIPAL PROCEDURE: 1. Left heart catheterization, coronary angiographic and left ventriculography performed by Dr. MER Pichardo 2. Urgent coronary artery bypass grafting 2 with his left internal mammary artery to the left anterior descending coronary artery, a reverse greater saphenous vein graft off the aorta to the diagonal coronary artery. 3. Left lower extremity greater saphenous vein harvesting endoscopically. 4. Clip ligation of the left atrial appendage with a #35 mm Atriclip. 5. Intraoperative transesophageal echocardiogram. HISTORY OF PRESENT ILLNESS: This a 53-year-old gentleman who is followed by Dr. Hung Varner on an outpatient basis. He has a past medical history significant for gastroesophageal reflux disease, family history of early onset coronary artery disease with his mother having a cardiac stent placed in her early 50s, chronic tobacco dependence and chronic neck pain from a herniated disc. Recently, the patient has had complaints of episodes of chest pressure associated with nausea, diaphoresis and lightheadedness. The patient's subsequently brought the patient to the emergency department here at [facility] for further evaluation. In the emergency department a 12- lead EKG was completed which showed normal sinus rhythm with a very subtle ST and T-wave abnormality. His lab work demonstrated elevated troponins as high as 0.555. Patient was subsequently admitted to the hospital for further evaluation and workup by Dr. MER Pichardo from [facility]. HOSPITAL COURSE: The patient was admitted to the hospital and he was evaluated by Dr. MER Pichardo from cardiology and was taken for urgent heart catheterization after obtaining consent. The heart catheterization results demonstrated a 75% stenosis to his proximal left anterior descending coronary artery with an intrinsic dissection. Also during heart catheterization a left ventriculogram was completed which demonstrated him to have an ejection fraction of 55%. Subsequently due to the patient's presenting symptoms, elevated troponins and cardiac catheterization results a consult was placed to Dr. Bautista from cardiothoracic surgery for recommendations on myocardial vascularization surgery. Dr. Bautista examined the patient, reviewed his cardiac catheterization results with the patient and his , the risks and benefits an STS risk score were discussed with the patient and the patient wished to proceed with urgent coronary artery bypass grafting surgery. Subsequently, after obtaining consent the patient was taken to the operating room where Dr. Celestino Bautista performed an urgent coronary artery bypass grafting 2 with his left internal mammary artery to the left anterior descending coronary artery, a reverse greater saphenous vein graft off the aorta to the diagonal coronary artery, left lower extremity greater saphenous vein harvesting endoscopically, clip ligation of his left atrial appendage with a #35 mm Atriclip and an intraoperative transesophageal echocardiogram. Upon completion of his surgery the patient was transferred to the cardiovascular intensive care unit where he was recovered, monitored hemodynamically and where he progressed cardiac rehabilitation phase 1. He was extubated, all lines, tubes and supportive drips were discontinued when appropriate and transfer orders were placed for the patient to be transferred to [address] [place] [address] cardiac stepdown unit for further rehabilitation needs. Due to limited bed availability on [address] [place] [address] cardiac stepdown unit the patient continued to be monitored in the intensive care unit. The patient has been requiring 2 L of oxygen support as his oxygen levels have been dipping down below 88% on room air with ambulation. He continues to work with physical, occupational therapy and cardiac rehabilitation, he has been tolerating an oral diet, his pain is well controlled and he is ready to be discharged home with [facility] care on postoperative day #3. He is received verbal and written instructions regarding his medications, activity restrictions, signs and symptoms requiring physician notification and his follow-up appointments. COMPLICATIONS: There were no postoperative complications. CONSULTATIONS: 1. Dr. MER Pichardo for cardiology management. 2. Dr. Lopez for pulmonary and ventilator management. 3. Dr. Monet for medical management. DISCHARGE INSTRUCTIONS: 1. No driving for 4 weeks, or until physician gives their ok. 2. The patient should sleep in their own bed, no medical bed needed. 3. Stairs are not an issue. If the bedroom is upstairs, it is advised that the patient go up at night and down in the morning for the first week. Go slowly, using handrail and take 1 step at a time. 4. STERLING hose are to be worn for 30 days or until physician discontinues. 5. Heart hugger is to be worn 100% of the time until physician discontinues.( except when showering) 6. No lifting, pushing, or pulling more than 10 pounds for 12 weeks. The physician will advise of any restriction changes. 7. The patient is expected to continue the prescribed walking program. 8. Continue pain control per as needed orders. 9. Continue with incentive spirometry and splinting/heart hugger until otherwise directed by the physician. 10. Must shower daily using liquid antibacterial soap and a separate white washcloth for each individual incision. 11. Routine sternal incision care, no ointments, lotions or powders on the incisions. 12. Please notify surgeon/nurse practitioner for temperature greater than 101F or purulent drainage from incisions 13. Prescriptions for first 30 days given per cardiac surgery service. After 30 days, all prescription refills obtained through cardiology/primary care physician. 14. A red arm and has been placed on this patient it should be worn for 30 days post surgery and will be removed by the cardiothoracic surgeons. If an ER visit is necessary, please make sure the number on the red arm band is called. 15. The importance of smoking cessation has been discussed and reinforced with the patient. 16. The patient will be discharged home with oxygen support managed by Dr. Lopez from pulmonary medicine. HOME HEALTH SERVICES TO PROVIDE: RN SKILLED HOME CARE SERVICES FOR POST-OP SURGICAL PATIENTS WITH THE FOLLOWING: Coronary Artery Bypass Surgery (CABG), Mitral Valve Replacement/ Repair ( MVR), Aortic Valve Replacement/Repair (AVR) RN TO CONTINUE EDUCATION FROM ``ROAD TO A HEALTH HEART PATIENT EDUCATION MANUAL" (GIVEN TO PATIENT IN THE HOSPITAL) MEDICATION RECONCILIATION WITH EDUCATION NEEDED ON FIRST HOME VISIT EMPHASIZE IMPORTANCE OF WEARING BREAST SUPPORT/HEART HUGGER ENCOURAGE USE OF INCENTIVE SPIROMETER 10 X EVERY HOUR WHILE AWAKE ENCOURAGE UTILIZATION OF LOWER EXTREMITY COMPRESSION STOCKINGS/STERLING HOSE and ELEVATE LEGS ABOVE LEVEL OF HEART WHILE AT REST. ENCOURAGE AMBULATION 3-5x/day INCREASING TOLERATES, WHILE AVOID EXTREMES IN TEMPERATURE FREQUENCY: RN TO OPEN THE PATIENT WITHIN 24 HOURS OF DISCHARGE FROM THE HOSPITAL WITH TELEHEALTH INSTALLED AT [facility], RN TO VISIT 2-3 X A WEEK FOR 4 WEEKS ESTABLISHED BY PATIENT NEEDS. LABORATORY: CBC, CMP TO BE DRAWN ON THE THIRD DAY HOME, 11/24/2018 (RAN STAT) FAX RESULTS TO [phone]. TELEHEALTH PARAMETERS: WEIGHT: NOTIFY MD OF WEIGHT GAIN OF 2 LBS IN 24 HOURS OR 5 LBS IN ONE WEEK HR: NOTIFY MD OF HR <55 BPM OR HR>100 BPM BP: NOTIFY MD IF BP <90/55 OR BP>140/100 O2 SAT: NOTIFY MD IF PO2<93% ON ROOM AIR SEND TELEHEALTH REPORT TO SUPERVISOR FERTILIZER PROCESSING AND CARDIOVASCULAR SURGEON THE FIRST WEEK OF CARE AND THEN BI-WEEKLY. PLEASE ADDITIONALLY COMMUNICATE ANY ABNORMALS AND NEW FINDINGS TO THE SURGEONS OFFICE. Plan - Discharge Summary Discharge Rx Participant: Yes New Discharge Prescriptions: New Acetaminophen Tab [Tylenol] 650 mg PO Q6HR PRN tab PRN Reason: Pain Scale 6 To 10 Aspirin 325 mg PO DAILY tab Atorvastatin [Lipitor] 40 mg PO DAILY #30 tab Clopidogrel [Plavix] 75 mg PO DAILY #30 tab Metoprolol Tartrate [Lopressor] 50 mg PO BID #60 tab Pantoprazole [Protonix] 40 mg PO AC-BRKFST #30 tablet.dr Damian-Docusate Sodium [Senokot-S] 2 each PO HS #14 tab Discharge Medication List Acetaminophen Tab [Tylenol] 650 mg PO Q6HR PRN tab 11/21/18 [Rx] Aspirin 325 mg PO DAILY tab 11/21/18 [Rx] Atorvastatin [Lipitor] 40 mg PO DAILY #30 tab 11/21/18 [Rx] Clopidogrel [Plavix] 75 mg PO DAILY #30 tab 11/21/18 [Rx] Metoprolol Tartrate [Lopressor] 50 mg PO BID #60 tab 11/21/18 [Rx] Pantoprazole [Protonix] 40 mg PO AC-BRKFST #30 tablet. 11/21/18 [Rx] Sennosides-Docusate Sodium [Senokot-S] 2 each PO HS #14 tab 11/21/18 [Rx] Follow up Appointment(s)/Referral(s): Katie Mendoza NPC [Nurse Practitioner] - 11/23/18 1:15 pm Caro Pichardo MD [STAFF PHYSICIAN] - 1 Week (Dr. Pichardo's office will call the patient with a follow-up appointment for Mary at Dr. Pichardo's office.) Kerline Caballero NPC [Nurse Practitioner] - 11/28/18 10:00 am (At Dr. Varner's office. ) Joel Lopez DO [Doctor of Osteopathic Medicine] - 11/28/18 8:30 am [facility], [NON-STAFF] - 1 Week Celestino Bautista MD [STAFF PHYSICIAN] - 3 Weeks (Jo from Dr. Bautista's office will call the patient with an appointment.) Ambulatory/Diagnostic Orders: Complete Blood Count w/diff [LAB.AMB] Time Frame: 11/24/18, Facility: [facility], Location: Laboratory [facility] Comprehensive Metabolic Panel [LAB.AMB] Time Frame: 11/24/18, Facility: [facility], Location: Laboratory [facility] Activity/Diet/Wound Care/Special Instructions: Home Oxygen through [facility]. For questions please contact them at Discharge Disposition: HOME WITH HOME HEALTH SERVICES
--- NOTE | 2018-11-21 11:57 | PN ---
PROGRESS NOTE DATE OF SERVICE: 11/21/2018. This is a 53-year-old gentleman, postop day #3, status post 2-vessel bypass grafting as well as left atrial appendage excision. The patient has a history of chronic tobacco dependence for many years. The patient also has a history of gastroesophageal reflux disease. His chest x-ray continues to show some atelectasis particularly in the left mid lung, left lower lobe area. The patient may be discharged home today and likely will have to go home on oxygen therapy. He is currently on 2 L by nasal cannula and not receiving any IV fluids. Other than that, he is doing reasonably well. He definitely wants to go home today. Current vital signs are reviewed. Temperature 98, heart rate 95, respiratory rate 19, blood pressure 114/74, mean 87, room-air saturation 95%. Appears in no acute distress. HEENT examination is grossly unremarkable. Mucous membranes are moist. No oral lesions. NECK: Supple. Full range of motion. No adenopathy or thyromegaly. Neck veins are flat. Cardiovascular examination reveals regular rhythm and rate. S1, S2 normal. There is no S3, S4, or murmur. Lungs reveal relatively clear breath sounds. A few scattered rhonchi. No wheezes or crackles. ABDOMEN: Soft. Bowel sounds are heard. Extremities are intact. No cyanosis, clubbing, or edema. Skin without rash. Neurologic examination reveals no focal abnormality. Chest x-ray is reviewed. Again, atelectasis at the bases, particularly on the left side. Labs are reviewed. White count 13, hemoglobin 11.2, hematocrit 34.2, platelet count 302,000. Sodium, potassium, chloride, CO2 all normal. Anion gap is normal. BUN and creatinine were normal. Microbiologic studies are negative. Chest x-ray is reviewed. Medications are reviewed. ASSESSMENT: 1. Postoperative day #3, status post 2-vessel bypass grafting and left atrial appendage excision. 2. Postoperative mechanical ventilation management, resolved. 3. Chronic tobacco dependence of 40 years, with COPD seen on pre-op spirometry. 4. Gastroesophageal reflux disease. 5. Basilar atelectasis, left greater than right. 6. Mild postoperative hypoxemia. PLAN: The patient should go home on using his incentive spirometer. In addition, the patient will need to go home on oxygen therapy. We will see him back in the office. No additional recommendations are made. Prognosis is guarded. The patient will need PFT's in the office to better stage his COPD. MMODL / IJN: [id number] / CHRISTOPH
[2018-11-21 12:00] LABS: Glucose,Whole Blood 152 mg/dL (75-99)
[2018-11-21 12:11] VITALS: PULSE 96
[2018-11-21 14:43] VITALS: BP 112/78; RESP 18
--- NOTE | 2018-11-21 17:01 | P.PN ---
Subjective Patient is admitted secondary to acute myocardial infarction found to have left main disease successfully underwent the coronary artery bypass grafting 2 with the left internal mammary artery and left anterior descending artery reverse saphenous vein graft. Patient is presently intubated posterior CABG presently on Cardizem 5 g nitro drip at 5 g propofol 10 g and weaning off patient is waking up at this time plan is to extubate him today. 11/19/2018 Patient is extubated clinically doing well patient can use to have a mediastinal chest tube and a left pleural chest tube having some pain when he takes a deep breath otherwise clinically doing well can use to be empty mini pain drip and amiodarone drip. 11/20/2018 Patient will be transferred to [facility] today and patient's a mediastinal chest tube is out and left pleural chest tube is out. Doing much better 11/21/2018 Patient is being discharged today from discharge medications were reviewed Constitutional: Denied any fatigue denied any fever. Cardio vascular: denied any chest pain, palpitations Gastrointestinal denied any nausea vomiting Pulmonary: Denied any shortness of breath cough Neurologic denied any new focal deficits All inpatient medications were reviewed and appropriate changes in these medications as dictated in the interval history and assessment and plan. Objective - Vital Signs Vital signs: Vital Signs Temp 98.0 F 11/21/18 08:00 Pulse 96 11/21/18 12:10 Resp 18 11/21/18 12:00 BP 112/78 11/21/18 12:00 Pulse Ox 95 11/21/18 12:00 Intake & Output 11/20/18 11/21/18 11/21/18 18:59 06:59 18:59 Intake Total 812 60 540 Output Total 1440 0 Balance -628 60 540 Weight 84.4 kg Intake: IV 212 60 Lactated Ringers 1,000 ml 200 60 @ 20 mls/hr IV .Q24H SMILEY Rx#:[id number] pressure bag 12 Intake, IV Titration 100 Amount Magnesium Sulfate-D5w Pmx 100 1 gm In Dextrose/Water 1 100ml.bag @ 100 mls/hr IVPB Q1H SMILEY Rx#: [id number] Oral 500 540 Output: Chest Tube Drainage 30 Chest Tube Left Pleural/ 30 Mediastinal Urine 1410 0 Other: Voiding Method Indwelling Catheter # Voids 2 3 ABP, PAP, CO, CI - Last Documented Arterial Blood Pressure 119/67 Pulmonary Artery Pressure 29/17 Cardiac Output 7.6 Cardiac Index 4.0 - Exam PHYSICAL EXAMINATION: GENERAL: Alert oriented 3 not in respiratory distress HEENT: Pupils are round and equally reacting to light. EOMI. No scleral icterus. No conjunctival pallor. Normocephalic, atraumatic. No pharyngeal erythema. No thyromegaly. CARDIOVASCULAR: S1 and S2 present. No murmurs, rubs, or gallops. PULMONARY: Chest is clear to auscultation, no wheezing or crackles. She and has left pleuraland mediastinal chest tubes ABDOMEN: Soft, nontender, nondistended, normoactive bowel sounds. No palpable organomegaly. MUSCULOSKELETAL: No joint swelling or deformity. EXTREMITIES: No cyanosis, clubbing, or pedal edema. NEUROLOGICAL: Gross neurological examination did not reveal any focal deficits. SKIN: No rashes. - Labs CBC & Chem 7: 11/21/18 04:33 11/21/18 04:33 Labs: Abnormal Lab Results - Last 24 Hours (Table) 11/20/18 11/20/18 11/21/18 Range/Units 16:53 20:43 02:21 WBC (3.8-10.6) k/uL RBC (4.30-5.90) m/uL Hgb (13.0-17.5) gm/dL Hct (39.0-53.0) % Neutrophils # (1.3-7.7) k/uL Glucose (74-99) mg/dL POC Glucose (mg/dL) 125 H 125 H 116 H (75-99) mg/dL Total Protein (6.3-8.2) g/dL 11/21/18 11/21/18 11/21/18 Range/Units 04:33 04:33 06:56 WBC 13.0 H (3.8-10.6) k/uL RBC 3.75 L (4.30-5.90) m/uL Hgb 11.2 L (13.0-17.5) gm/dL Hct 34.2 L (39.0-53.0) % Neutrophils # 10.0 H (1.3-7.7) k/uL Glucose 113 H (74-99) mg/dL POC Glucose (mg/dL) 118 H (75-99) mg/dL Total Protein 5.8 L (6.3-8.2) g/dL 11/21/18 Range/Units 11:58 WBC (3.8-10.6) k/uL RBC (4.30-5.90) m/uL Hgb (13.0-17.5) gm/dL Hct (39.0-53.0) % Neutrophils # (1.3-7.7) k/uL Glucose (74-99) mg/dL POC Glucose (mg/dL) 152 H (75-99) mg/dL Total Protein (6.3-8.2) g/dL Assessment and Plan Plan: -Acute non-ST elevation myocardial infarction: Status post cardiac catheterization with left main disease with intrinsic dissection patient is status post CABG. she is being discharged today showed medications were reviewed -Gastroesophageal reflux disease -Nicotine abuse: Counseling was provided
== END 2018-11-21 14:57 | disposition home health service (06) | DRG 233 ==
LOC: EC 13:09 → 3SCARD 15:37 → 2SICU 11-17 10:43
PROVIDERS: ADMIT Internal Medicine; ATTEND Thoracic Surgery (Cardiothoracic Vascular Surgery)
PROC: 4A023N7 Measurement of Cardiac Sampling and Pressure, Left Heart, Percutaneous Approach (ICD-10-PCS; 2018-11-17)
PROC: B54DZZZ Ultrasonography of Bilateral Lower Extremity Veins (ICD-10-PCS; 2018-11-17)
PROC: B2111ZZ Fluoroscopy of Multiple Coronary Arteries using Low Osmolar Contrast (ICD-10-PCS; 2018-11-17)
PROC: B2151ZZ Fluoroscopy of Left Heart using Low Osmolar Contrast (ICD-10-PCS; 2018-11-17)
PROC: 021009W Bypass Coronary Artery, One Artery from Aorta with Autologous Venous Tissue, Open Approach (ICD-10-PCS; 2018-11-18)
PROC: 06BP4ZZ Excision of Right Saphenous Vein, Percutaneous Endoscopic Approach (ICD-10-PCS; 2018-11-18)
PROC: 5A1221Z Performance of Cardiac Output, Continuous (ICD-10-PCS; 2018-11-18)
PROC: 02L70CK Occlusion of Left Atrial Appendage with Extraluminal Device, Open Approach (ICD-10-PCS; 2018-11-18)
PROC: B24BZZ4 Ultrasonography of Heart with Aorta, Transesophageal (ICD-10-PCS; 2018-11-18)
PROC: 02100Z9 Bypass Coronary Artery, One Artery from Left Internal Mammary, Open Approach (ICD-10-PCS; principal; 2018-11-18 08:00)
DX: I21.4 Non-ST elevation (NSTEMI) myocardial infarction (principal); I25.42 Coronary artery dissection; J98.11 Atelectasis; M50.20 Other cervical disc displacement, unspecified cervical region; I25.10 Atherosclerotic heart disease of native coronary artery without angina pectoris; I73.9 Peripheral vascular disease, unspecified; J44.9 Chronic obstructive pulmonary disease, unspecified; F17.210 Nicotine dependence, cigarettes, uncomplicated; G89.29 Other chronic pain; K21.9 Gastro-esophageal reflux disease without esophagitis; K57.90 Diverticulosis of intestine, part unspecified, without perforation or abscess without bleeding; Z80.1 Family history of malignant neoplasm of trachea, bronchus and lung; Z82.49 Family history of ischemic heart disease and other diseases of the circulatory system
CPT/HCPCS: 36415; 71045; 71046; 80048; 80053; 80061; 80074; 81003; 82330; 82550; 82553; 82805; 83036; 83735; 84443; 84484; 85025; 85027; 85520; 85610; 85730; 86850; 86891; 86900; 86901; 86920; 87070; 87086; 93005; 93306; 93458; 93880; 93922; 93970; 94002; 94640; 96365; 96366; 96376; 99291

== ENCOUNTER → 2018-12-04 | Outpatient (CLI) | payer BC ==
--- NOTE | 2018-12-04 17:20 | CT ---
EXAMINATION TYPE: CT chest w con DATE OF EXAM: 12/04/2018 COMPARISON: 11/28/2018 chest x-ray HISTORY: Solitary lung nodule CT DLP: 338.20 mGycm, Automated exposure control for dose reduction was used. CONTRAST: Performed injected with 100 ml mL of Isovue 300. TECHNIQUE: Axial images were obtained at 5 mm thick sections. Reconstructed images are reviewed on [employer] computer in the coronal plane. FINDINGS: Portion of the thyroid visualized is normal. No suspicious lung nodules or focal infiltrates are present. There is a very small left pleural effus ion with some adjacent compressive atelectasis. No enlarged mediastinal or hilar adenopathy is evident. There are scattered small lymph nodes prese nt The ascending aorta diameter at the level of the main pulmonary artery is 4.1 cm. The main pulmon dave artery diameter at the bifurcation is 2.7 cm. Postsurgical changes are in the anterior mediastinu m. Very minimal fluid may be in the retrosternal space. Correlate with the timing of the cardiac surg miladis. Surgery appears to have been October 2018. Some minimal residual seroma could be considered. Limited CT sections are obtained through the upper abdomen. Abdomen is essentially unremarkable. IMPRESSIONS: 1. Minimal left pleural effusion with adjacent compressive atelectasis. 2. No suspicious lung nodules are evident. 3. Suspected postsurgical changes within the superior mediastinum retrosternal space.
== END | disposition home or self-care (01) ==
LOC: RADCTMAIN 14:01
PROVIDERS: ATTEND Internal Medicine Critical Care Medicine
DX: J90 Pleural effusion, not elsewhere classified (principal); J98.11 Atelectasis
CPT/HCPCS: 71260; Q9967

== ENCOUNTER → 2020-08-04 | Outpatient (CLI) | payer BC ==
[2020-08-04 10:51] LABS: HCT 43.3 % (39.0-53.0); HGB 14.4 gm/dL (13.0-17.5); MCH 30.9 pg (25.0-35.0); MCHC 33.3 g/dL (31.0-37.0); MCV 92.7 fL (80.0-100.0); Mean Platelet Volume 6.8; Platelet Count 363 k/uL (150-450); RBC 4.68 m/uL (4.30-5.90); RDW 13.1 % (11.5-15.5); WBC 10.5 k/uL (3.8-10.6)
[2020-08-04 16:37] LABS: ALT 22 U/L (10-49); AST 22 U/L (14-35); BUN/Creat Ratio 13.33 Ratio (12.00-20.00); Calcium 9.7 mg/dL (8.7-10.3); Carbon Dioxide 23.9 mmol/L (21.6-31.8); Chloride 109 mmol/L (96-109); Chol/HDL Ratio 2.74; Cholesterol 85 mg/dL (0-200); Creatine Kinase 83 U/L (35-257); Glucose 100 mg/dL (70-110); Non-African American GFR(CKD) 95.8 (60.0-200.0); Potassium 4.8 mmol/L (3.5-5.5); Sodium 141 mmol/L (135-145); Triglycerides <50.0 mg/dL (0.0-149.0)
[2020-08-04 17:13] LABS: Prostate Specific Antigen 1.1 ng/mL (0.0-3.5)
== END | disposition home or self-care (01) ==
LOC: LABWHC1 08:59
PROVIDERS: ATTEND Internal Medicine Interventional Cardiology
DX: E78.5 Hyperlipidemia, unspecified (principal); I25.10 Atherosclerotic heart disease of native coronary artery without angina pectoris
CPT/HCPCS: 36415; 80048; 80061; 82550; 84153; 84450; 84460; 85027

== ENCOUNTER 2024-11-18 13:47 | Emergency (ER) | payer BC ==
[2024-11-18] MEDS: MORPHINE SULFATE 4 MG/ML SYRINGE IVP STA (14:23)
[2024-11-18] MEDS: DIPH,PERTUS(ACELL)TETVAC-LF 0.5 ML VIAL IM ONE (14:23)
[2024-11-18] MEDS: ONDANSETRON 4 MG/2 ML VIAL IVP STA (14:24)
--- NOTE | 2024-11-18 14:28 | ED ---
General Adult HPI - General Chief complaint: Extremity Injury, Upper Stated complaint: left hand Time Seen by Provider: 11/18/24 13:56 Source: patient Mode of arrival: wheelchair Limitations: no limitations - History of Present Illness Initial comments: Is a 59-year-old gentleman presenting today for hand injury after lacerating his fingers on a table saw. Happened about 30 minutes prior to arrival. Unsure of last tetanus shot. Can't feel the tip of his left pinky. No other injuries. Is not on blood thinners. No allergies. - Related Data Previous Rx's Medication Instructions Recorded Acetaminophen Tab [Tylenol] 650 mg PO Q6HR PRN tab 11/21/18 Aspirin 325 mg PO DAILY tab 11/21/18 Atorvastatin [Lipitor] 40 mg PO DAILY #30 tab 11/21/18 Clopidogrel [Plavix] 75 mg PO DAILY #30 tab 11/21/18 Metoprolol Tartrate [Lopressor] 50 mg PO BID #60 tab 11/21/18 Pantoprazole [Protonix] 40 mg PO AC-BRKFST #30 tablet. 11/21/18 Sennosides-Docusate Sodium 2 each PO HS #14 tab 11/21/18 [Senokot-S] Allergies Allergy/AdvReac Type Severity Reaction Status Date / Time No Known Allergies Allergy Verified 11/16/18 14:08 Review of Systems ROS Statement: Those systems with pertinent positive or pertinent negative responses have been documented in the HPI. ROS Other: All systems not noted in ROS Statement are negative. Past Medical History Past Medical History: GERD/Reflux Additional Past Medical History / Comment(s): one seizure age 12, diverticulosis,"herniated disc in neck" chronic neck pain History of Any Multi-Drug Resistant Organisms: None Reported Past Surgical History: Orthopedic Surgery Additional Past Surgical History / Comment(s): ORIF rt hand, lump on back of neck excised(cyst), rt thumb partial amp Past Anesthesia/Blood Transfusion Reactions: No Reported Reaction Additional Past Anesthesia/Blood Transfusion Reaction / Comment(s): "never received any blood transfusions" Past Psychological History: No Psychological Hx Reported Smoking Status: Never smoker Past Alcohol Use History: None Reported Past Drug Use History: None Reported - Past Family History Mother Family Medical History: Cancer, Coronary Artery Disease (CAD), Myocardial Infarction (MS) Additional Family Medical History / Comment(s): cardiac stents placed while she was in her 50s. Father History Unknown: Yes Brother(s) Family Medical History: Cancer Additional Family Medical History / Comment(s): was smoker. from lung cancer Sister(s) Family Medical History: Cancer Additional Family Medical History / Comment(s): smoker. recently dx with lung cancer. General Exam - General Exam Comments Initial Comments: PE: CONSTITUTIONAL: No apparent distress, well appearing SKIN: Left pinky finger has large section missing from distal aspect, macerated, decreased sensation to no sensation at the fingertip, deep 3 cm laceration to the dorsal aspect of the fourth digit, 1 cm laceration into the fingertip of the third digit, large laceration in the 2nd digit, fingertips of 1-3 are pale and cool to the touch EYES: Pupils are equally round, extraocular movements intact without nystagmus, clear conjunctiva, non-icteric sclera HENT: Normocephalic, atraumatic, moist mucus membranes, oropharynx clear without exudates NECK: , Full range of motion, normal appearance PULMONARY: Clear to auscultation without wheezes, rhonchi, or rales, normal excursion, no accessory muscle use and no stridor CARDIOVASCULAR: Regular rate, rhythm, normal S1 and S2. No appreciated murmurs, rubs or gallops. Strong radial pulses with intact distal perfusion. MUSCULOSKELETAL: With exception of above, extremities have no gross deformity, no edema, redness, or swelling. . Unable to flex or extend 5 digit NEUROLOGIC:_a/o x 3, GCS 15, normal mentation and speech. Moves all extremities x 4 without motor or sensory deficit PSYCHIATRIC:_normal mood and affect, thought process is clear and linear Limitations: no limitations Course Vital Signs 11/18/24 11/18/24 13:53 15:55 Pulse Rate 94 89 Respiratory 18 20 Rate Blood Pressure 127/80 130/82 O2 Sat by Pulse 97 96 Oximetry Medical Decision Making - Medical Decision Making Was pt. sent in by a medical professional or institution (, PA, MAT MAKER, urgent care, hospital, or long-term...) When possible be specific @ -No Did you speak to anyone other than the patient for history (EMS, parent, family, police, friend...)? What history was obtained from this source @ -No Did you review nursing and triage notes (agree or disagree)? Why? @ -I reviewed and agree with nursing and triage notes Were old charts reviewed (outside hosp., previous admission, EMS record, old EKG, old radiological studies, urgent care reports/EKG's, long-term records)? Report findings @Medical records reviewed Differential Diagnosis (chest pain, altered mental status, abdominal pain women, abdominal pain men, vaginal bleeding, weakness, fever, dyspnea, syncope, headache, dizziness, GI bleed, back pain, seizure, CVA, palpatations, mental health, musculoskeletal)? digit tiny chip fracture tuft distal differential Musculoskeletal Muscular strain, contusion, ligament sprain, fracture, ligamentuous injury, open fracture... This is not meant to be in all inclusive list EKG interpreted by me (3pts min.). @ -As above X-rays interpreted by me (1pt min.). @ distal phalanx amputation of 5th and 4th, 2nd digits, Bony fragments / missing bone in 5th digit, onesimo fracture 2nd digit CT interpreted by me (1pt min.). @ -None done U/S interpreted by me (1pt. min.). @ -None done What testing was considered but not performed or refused? (CT, X-rays, U/S, labs)? Why? @ -None What meds were considered but not given or refused? Why? @ -None Did you discuss the management of the patient with other professionals (professionals i.e. MICHELLE Ireland, MAT MAKER, lab, RT, psych nurse, sexual assault social worker, title lawyer, teacher, safety and security officer, housing case manager)? Give summary @ -Case discussed with MICHELLE Kennedy, orthopedics, ultimately orthopedics recs transfer for hand surgeon Was smoking cessation discussed for >3mins.? @ -No Was critical care preformed (if so, how long)? @Yes 35 minutes Were there social determinants of health that impacted care today? How? (Homelessness, low income, unemployed, alcoholism, drug addiction, transportation, low edu. Level, literacy, decrease access to med. care, group home, rehab)? @ -No Was there de-escalation of care discussed even if they declined (Discuss DNR or withdrawal of care, Hospice)? @ -No What co-morbidities impacted this encounter? (DM, HTN, Smoking, COPD, CAD, Cancer, CVA, ARF, Chemo, Hep., AIDS, mental health diagnosis, sleep apnea, morbid obesity)? @ -None Was patient admitted / discharged? Hospital course, mention meds given and route, prescriptions, significant lab abnormalities, going to OR and other pertinent info. @ Transfer to [facility] Is a pleasant 59-year-old gentleman with no significant past medical history presenting for multiple finger lacerations sustained while using a table saw today. Happened 30 minutes prior to arrival. Patient arrives with ice around hand, seen and assessed upon rooming. The fifth digit is macerated with a large section of tissue measuring from the dorsal aspect of the digit, appears to have bone missing as well, fourth digit has a large laceration through the distal asp ect, third digit has small laceration through the nailbed and distal aspect, fourth digit with large 2 cm laceration with macerated skin. Fingertips are cool to the touch. digits 2-4 have 2-3 second cap refill. Patient able to flex and full extend 2nd, 3rd and 4th digits at PIP and DIP joints through nearly full ROM, 5th digit macerated. Finger tips of affected fingers are cool to the touch pale, with slowed cap refill, though have been resting in ice. Bleeding is controlled, no pulsatile bleeding is noted. Tdap updated, Ancef, pain control, will discuss with hand surgery. Discussed with Brent, physician food and beverage assistant with orthopedics, hand surgeon is gone for the day will need to be transferred. X-ray shows multiple fracture/partial amputation including the second fourth and fifth digits, phalanx of the fifth digit with soft tissue injury small tissue soft tissue ossifications, partial amputation/fracture of the distal phalanx of the second digit with punctate densities in the soft tissues, flexion deformity of the fourth digit lateral view suggesting fracture dislocation or partial amputation of the distal margin of the middle phalanx and distal phalanx irregularities of the distal phalanx and tuft of the third . Case discussed with Dr. Pichardo emergency medicine and [facility], kindly accept patient for transfer. Discussed risk and benefits of transfer with patient and , they are agreeable with transfer. Lacerations gently irrigated with sterile saline and wrapped in petroleum gauze and clean dressing and placed back on ice. Patient transferred to [facility] in stable condition. Undiagnosed new problem with uncertain prognosis? @ -No Drug Therapy requiring intensive monitoring for toxicity (Heparin, Nitro, Insulin, Cardizem)? @ -No Were any procedures done? @ -No Diagnosis/symptom? @Multiple finger lacerations, multiple finger fractures, table saw Acute, or Chronic, or Acute on Chronic? acute Uncomplicated (without systemic symptoms) or Complicated (systemic symptoms)? complicated Side effects of treatment? @ -No Exacerbation, Progression, or Severe Exacerbation? @ -No Poses a threat to life or bodily function? How? (Chest pain, USA, MS, pneumonia, PE, COPD, DKA, ARF, appy, cholecystitis, CVA, Diverticulitis, Homicidal, Suicidal, threat to staff... and all critical care pts) yes Disposition Clinical Impression: Partial traumatic amputation of right little finger through phalanx, Finger laceration with complication, Multiple open fractures of fingers Disposition: DC/TRNS INTERMEDIATE CARE FAC Referrals: Mami Lema MD [Primary Care Provider] - 1-2 days - Out of Hospital Transfer - Req. Specs Out of Hospital Transfer - Requested Specifics: Other Emergency Center ([facility] ED)
--- NOTE | 2024-11-18 15:11 | XR ---
EXAMINATION TYPE: XR hand limited LT DATE OF EXAM: 11/18/2024 COMPARISON: NONE CLINICAL INDICATION: Male, 59 years old with history of hand in chain saw; TECHNIQUE: Three views are submitted. FINDINGS: Partial amputation of the middle and distal phalanx fifth digit with soft tissue injury and small sof t tissue ossifications. There is partial amputation/fracture distal phalanx second digit with punctate densities in the soft tissues which may be related to ossification of chronic foreign body. There is a flexion deformity of the fourth digit lateral view suggesting fracture dislocation or part ial amputation of the distal margin of the middle phalanx and base distal phalanx. Irregularity of the soft tissues of the distal phalanx and tuft third digit. Tiny chip fracture tuft distal phalanx in the differential diagnosis. IMPRESSION: 1. Multiple fracture\partial amputation including the second, fourth and fifth digit as discussed abo spencer. [facility], , 11/18/2024 3:09 PM
[2024-11-18 15:57] VITALS: BP 130/82; PULSE 89; RESP 20
== END 2024-11-18 15:57 ==
LOC: EC 13:47
DX: S68.627A Partial traumatic transphalangeal amputation of left little finger, initial encounter (principal); Z23 Encounter for immunization; W27.0XXA Contact with workbench tool, initial encounter
CPT/HCPCS: 73120; 90715; 99285; 96365; 96366; 96375 ×2; 90471; 12002; J2270; J0690; J2405